=== PATIENT | female | born 1950 | race African-American/Black ===

== ENCOUNTER 2022-04-24 14:58 | Inpatient (IN) | payer MEDICARE, MEDICAID, SELFPAY ==
[2022-04-24] VITALS (31 sets, daily range): BP systolic 134–190; BP diastolic 54–91; PULSE 71–93; RESP 12–25; TEMP 36.6; O2SAT 96–100
--- NOTE | ~2022-04-24 | US_ITS ---
EXAMINATION: US renal BI DATE: 04/26/2022 15:36 INDICATION: Elevated creatinine TECHNIQUE: Multiple grayscale and Doppler ultrasound images of the kidneys were obtained. COMPARISON: None. FINDINGS: The right kidney measures 12.2 x 4.8 x 5.7 cm. The left kidney measures 11.4 x 5.8 x 5.8 cm. The kidn eys demonstrate increased parenchymal echogenicity. Multiple simple right renal cysts, largest contai ns thin septae and measuring up to 3.1 cm. There is no hydronephrosis. The bladder is partially decom pressed, with apparent wall thickening. IMPRESSION: Medical renal disease. No hydronephrosis. Bladder wall thickening may be secondary to incomplete dist ention or cystitis in the appropriate clinical context. Reviewed, dictated and finalized at location K. SORTER IMPRESSION: Medical renal disease. No hydronephrosis. Bladder wall thickening may be second peter to incomplete distention or cystitis in the appropriate clinical context.
--- NOTE | ~2022-04-24 | XR_ITS ---
Portable chest x-ray Comparison: 04/27/2022 Clinical History: Bilateral infiltrates Findings: Hazy airspace disease predominantly in the right upper lobe and left lower lobe is again p resent. Cardiomediastinal silhouette is stable. Bones and soft tissues are unremarkable. Impression: Bilateral hazy airspace disease, as detailed above, similar to prior exam. Correlate for pulmonary ed lukas or bilateral pneumonia. Reviewed, dictated and finalized at location M. ES INSPECTOR Impression: Bilateral hazy airspace disease, as detailed above, similar to prior exam. Staci elate for pulmonary edema or bilateral pneumonia.
--- NOTE | ~2022-04-24 | US_ITS ---
EXAMINATION: US venous doppler UE DATE: 04/30/2022 15:51 INDICATION: Upper limb swelling TECHNIQUE: Grayscale images without and with compression and Doppler images of the bilateral upper ex tremity veins were obtained. COMPARISON: None. FINDINGS: The right internal jugular vein, subclavian vein, axillary vein, brachial vein, basilic vein, cephali c vein, radial vein, and ulnar vein are patent. The left internal jugular vein, subclavian vein, axillary vein, brachial vein, basilic vein, cephalic vein, radial vein, and ulnar vein are patent. IMPRESSION: 1. Patent bilateral upper extremity veins. No evidence of venous thrombosis. Reviewed, dictated and finalized at location A. FIGHTERS DISPATCHER
--- NOTE | ~2022-04-24 | CT_ITS ---
EXAMINATION: CT abdomen pelvis wo con DATE: 04/27/2022 12:28 INDICATION: Anemia status post peg tube insertion TECHNIQUE: Computed tomography (CT) of the abdomen and pelvis was performed without intravenous contr ast. The dose-length product (DLP) was 1187.61 mGy-cm. Automated exposure control and iterative recon struction technique were employed. COMPARISON: None FINDINGS: Cardiomegaly is noted. There are patchy airspace opacities of the visualized lung bases. Th ere are small pleural effusions. The gallbladder is surgically absent. A percutaneous gastrostomy end s in the stomach. No evidence of surrounding hematoma is identified. The liver, spleen, pancreas, and adrenal glands are normal. Cysts of the kidneys measure up to 3.2 cm on the right. The bladder is de compressed by Mittal catheter. Areas of wall thickening of the urinary bladder could be due to cystiti s versus incomplete distention. No pathologically enlarged abdominal or pelvic lymph nodes are identi fied. There is no free intraperitoneal gas or evidence of bowel obstruction. There is moderate lumbar spondylosis at L5-S1. IMPRESSION: 1. PEG tube in the stomach without CT correlate for anemia. 2. Patchy airspace opacities of the visualized lung bases, consistent with pneumonia. 3. Areas of wall thickening in the urinary bladder, consistent with cystitis versus incomplete disten tion. Reviewed, dictated and finalized at location L. DROMAT MANAGER IMPRESSION: 1. PEG tube in the stomach without CT correlate for anemia. 2. Patchy airspace opacities of the visualized lung bases, consistent with pneu monia. 3. Areas of wall thickening in the urinary bladder, consistent with cystitis ve rsus incomplete distention.
--- NOTE | ~2022-04-24 | XR_ITS ---
EXAM: XR abdomen/kub 1V DATE: 04/25/2022 17:19 HISTORY: emisis . COMPARISON: None available. FINDINGS: Upper and left lateral abdomen incompletely visualized. Cholecystectomy clips. Left mid ab dominal surgical clips. Positive small bowel gas, otherwise normal bowel gas pattern. No organomegaly . Multiple pelvic phleboliths and mild scattered vascular calcifications. Degenerative changes in the spine. Bilateral hip osteoarthritis. IMPRESSION: No radiographic evidence of obstruction or ileus, given limitations noted above. Reviewed, dictated and finalized at location K. LING INSTRUCTOR
--- NOTE | ~2022-04-24 | CT_ITS ---
CT head without contrast Indication: Somnolence Technique: Serial scans were obtained through the brain without the administration of contrast. Dose reduction technique was used on this scan by utilizing automated exposure control and iterative recon struction technique. The dose-length product (DLP) was 832.33 mGy-cm. Findings: There is no evidence of intracranial hemorrhage, mass lesion, or acute infarct. Probable ch ronic right frontal lobe infarct. The ventricles and subarachnoid spaces are dilated, consistent with moderate atrophy. Low attenuation regions are seen within the periventricular white matter bilatera lly, likely representing changes from chronic microvascular ischemic disease. There is no evidence of edema, mass effect or midline shift. The visualized paranasal sinuses and mastoid air cells are cl ear. Impression: No intracranial hemorrhage, mass, or acute infarct. Probable chronic right frontal lobe infarct. Atrophy and chronic white matter changes, as above. Reviewed, dictated and finalized at [facility]. NT OR CONCRETE FINISHING SUPERVISOR Impression: No intracranial hemorrhage, mass, or acute infarct. Probable chronic right frontal lobe infarct. Atrophy and chronic white matter changes, as above.
--- NOTE | ~2022-04-24 | XR_ITS ---
EXAMINATION: XR chest 1V portable INDICATION: Respiratory distress TECHNIQUE: Portable AP chest at 1526 hours COMPARISON: None available FINDINGS: There is elevation of the right hemidiaphragm. There are diffuse interstitial and airspace opacities throughout the lungs. Cardiomegaly is noted. No pleural effusion or pneumothorax. Surgical clips in the right upper quadrant are likely from prior cholecystectomy. IMPRESSION: 1. Diffuse lung disease, consistent with pneumonia versus atelectasis versus pulmonary edema. Reviewed, dictated and finalized at location L. POLLUTION ENGINEER IMPRESSION: 1. Diffuse lung disease, consistent with pneumonia versus atelectasis versus pu lmonary edema.
--- NOTE | 2022-04-24 16:14 | ED.GENADULT ---
HPI - General Adult General Chief complaint: Unspecified Stated complaint: g tube out Time Seen by Provider: 04/24/22 15:54 History of Present Illness HPI narrative: Pt is a 72 yo F with hx of hypertension, CVA, COPD on 2L baseline, diabetes, dementia, afib on eliquis, g-tube dependence presenting with dislodged g-tube. Pt is coming from a nursing facility where she was noted to have a dislodged g tube. Unclear when it became dislodged. May have been last night. Pt is A&O x0 at baseline. She is nonverbal at baseline. Per the facility, she is behaving at her baseline. Related Data Home Medications Medication Instructions Recorded Confirmed apixaban 5 mg tablet (Eliquis) 5 mg feeding tube BID 04/25/22 04/25/22 ascorbate calcium (vitamin C) 500 mg feeding tube BID 04/25/22 04/25/22 benztropine 1 mg tablet 1 mg feeding tube BID 04/25/22 04/25/22 carbidopa 10 mg-levodopa 100 mg 1 tablet feeding tube Q6H 04/25/22 04/25/22 tablet carvedilol 6.25 mg tablet 6.25 mg feeding tube BID 04/25/22 04/25/22 clonidine HCl 0.3 mg tablet 0.3 mg feeding tube TID 04/25/22 04/25/22 docusate sodium 50 mg/5 mL oral 100 mg feeding tube BID 04/25/22 04/25/22 liquid ferrous sulfate 7.5 mg feeding tube DAILY 04/25/22 04/25/22 hydralazine 100 mg tablet 100 mg feeding tube Q8H 04/25/22 04/25/22 insulin NPH isoph U-100 human 100 See Rx Instructions .Route .COMPLEX 04/25/22 04/25/22 unit/mL (3 mL) subcutaneous pen (Novolin N Flexpen) insulin detemir U-100 100 unit/mL 22 unit subcut Q12H 04/25/22 04/25/22 (3 mL) subcutaneous pen (Levemir FlexTouch U-100 Insulin) insulin regular human 100 unit/mL 8 unit subcut TID 04/25/22 04/25/22 injection solution (Humulin R Regular U-100 Insulin) ipratropium 0.5 mg-albuterol 3 mg 3 ml inhalation Q4H PRN Shortness 04/25/22 04/25/22 (2.5 mg base)/3 mL nebulization Of Breath soln Allergies Allergy/AdvReac Type Severity Reaction Status Date / Time amlodipine Allergy Unknown Verified 04/24/22 15:39 fosinopril [From Monopril] Allergy Unknown Verified 04/24/22 15:39 Review of Systems Review of Systems: ROS unobtainable: Yes unobtainable due to mental status and other (nonverbal at baseline) [facility] Past Medical History Medical History (Updated 04/28/22 @ 12:44 by Miroslava Paz MD) Acute on chronic anemia Cerebrovascular accident Chronic obstructive pulmonary disease Chronic respiratory failure with hypoxia, on home oxygen therapy Dementia Hypertension Paroxysmal atrial fibrillation Type 2 diabetes mellitus Surgical History Surgical History History of gastrostomy tube placement Family History Family History Other Family history unknown Social History Social History Social History: Next of kin: Vikram Latham, son. Legal guardian: Raj Bustos. Code status: Full code. Smoking status: Unknown if ever smoked Alcohol intake: unknown Substance use: unknown Additional living arrangements comments: Resident at [facility]. Spiritual care concerns: No Exam Narrative: GENERAL: Chronically ill appearing, on nasal cannula HEAD: Normocephalic, atraumatic. EYES: PERRLA and EOMI. ENT: Nares clear, no rhinorrhea or epistaxis. Mucous membranes moist. NECK: Supple. CHEST: Clear to auscultation. No respiratory distress. HEART: Regular rate and rhythm. No murmur heard. Normal peripheral pulses. ABDOMEN: Soft, nontender, nondistended, gastrostomy site LUQ, appears closed at this time EXTREMITIES: Normal range of motion. No edema. SKIN: Warm, dry, no rash. NEURO: Nonverbal at baseline. Moves all extremities. Course Vital Signs Vital signs: Vital Signs Temperature 98 F 04/24/22 15:00 Pulse Rate 72 04/24/22 15:00 Respiratory Rate 16 04/24/22 15:00 Blood Pressure 134/54 L 04/24/22 15
--- NOTE | 2022-04-24 16:53 | PC.NURSE ---
spoke to facility to find out info related to g-tube. was unable to gather data, they were unsure where it was placed or by whom facility unable to state when tube was removed.
--- NOTE | 2022-04-24 16:54 | PC.NURSE ---
unable to acquire labs per order provider aware
[2022-04-24 17:07] LABS: Basophils Percent Auto 0.4 % (0.2-1.2); Eosinophils Absolute Auto 0.3 K/mm3 (0-0.3); Eosinophils Percent Auto 2.6 % (0-4.4); Hematocrit 26.8 % (37.0-47.0); Hemoglobin 8.1 g/dL (12.0-15.0); Immature Granulocyte Absolute 0.09 K/mm3 (0.00-0.031); Immature Granulocyte Percent A 0.9 % (0-0.5); Lymphocytes Absolute Auto 1.51 K/mm3 (0.9-3.2); Lymphocytes Percent Auto 14.7 % (18.3-44.2); Mean Corpuscular HGB Conc 30.2 g/dl (32-36); Mean Corpuscular Hemoglobin 30.8 pg (26-34); Mean Corpuscular Volume 101.9 fl (80-100); Mean Platelet Volume 12.3 fl (7.4-10.4); Monocytes Absolute Auto 0.5 K/mm3 (0.1-0.6); Monocytes Percent Auto 5.1 % (2.6-8.5); Neutrophils Absolute Auto 7.8 K/mm3 (1.3-6.7); Neutrophils Percent Auto 76.3 % (45.5-73.1); Platelet Count Result 218 k/mm3 (150-375); Red Blood Count 2.63 M/mm3 (4.2-5.4); Red Cell Distribution Width 15.3 % (11.5-14.5); White Blood Count 10.3 K/mm3 (4.5-10.0)
[2022-04-24 17:17] LABS: Alanine Aminotransferase 11 U/L (6-35); Albumin Level 4.3 g/dL (3.5-5.1); Alkaline Phosphatase 140 U/L (38-126); Anion Gap 11 mmol/L (8-16); Aspartate Amino Transferase 34 U/L (14-36); Bilirubin,Total 0.6 mg/dL (0.2-1.3); Blood Urea Nitrogen 96 mg/dL (7-17); Calcium 12.3 mg/dL (8.4-10.2); Carbon Dioxide 33 mmol/L (22-30); Chloride 98 mmol/L (98-107); Estimated CRCL calculation 19 ml/min; Estimated Glomerular Filt Rate 17; Glucose 84 mg/dL (65-110); Potassium 4.4 mmol/L (3.4-5.0); Sodium 142 mmol/L (137-145)
[2022-04-24 17:43] LABS: Influenza A QL RT-PCR Negative (Negative); Influenza B QL RT-PCR Negative (Negative); SARS-CoV-2 RNA PCR Negative
[2022-04-24 17:46] LABS: Add Urine Microscopic? YES; Appearance Urine Clear (Clear); Bilirubin Urine Negative (Negative); Blood Urine Negative (Negative); Color Urine Light Yellow (Yellow); Glucose Urine UA Negative (Negative); Ketones Urine Negative (Negative); Leukocyte Esterase Ur 3+ LEU/UL (Negative); Nitrate Urine Negative (Negative); Protein Urine 1+ mg/dL (Negative); Specific Grav Ur 1.015 (1.001-1.035); Urobilinogen Urine 0.2 mg/dL (<2.0); pH Urine 6.5 (5.0-9.0)
[2022-04-24 17:49] LABS: Bacteria Urine Trace /hpf; Squamous Epithelial Cell Urine Rare /hpf (Few); WBC Urine 31-50 /hpf
--- NOTE | 2022-04-24 18:45 | PM.IMHP ---
H&P: HPI History of Present Illness Date/Time: 04/24/22 18:45 Chief Complaint: Dislodged G-tube. Narrative: This is an unfortunate 72-year-old female with history of stroke, dementia, hypertension, paroxysmal atrial fibrillation on chronic anticoagulation, COPD on 2 liters, and diabetes who presented to the emergency department from [facility] after her G-tube became dislodged. The patient is nonverbal and is unable to provide any history and all of the following history has thus been obtained via a review of her electronic medical records. Family members have not been in touch as of yet. It is unclear when the tube was dislodged and it sounds like staff noticed that it was not in place this morning. She was sent to the ER this afternoon. Unfortunately nothing was placed in the opening to keep it patent and g-tube was unable to be reinserted in the ED. She is being admitted in this setting for GI consultation and G-tube placement. At the time my evaluation she is alert and appears to track with her eyes though she does not speak and is unable to follow commands. Vital signs were stable on arrival. Labs were significant for macrocytic anemia, BUN and creatinine of 96 and 2.80 respectively, and a calcium of 12.3. She has not been seen at this facility thus it is unclear what her baseline labs look like. Review of Systems Review of Systems: Unable to obtain as she is nonverbal. [facility] Past Medical History Medical History (Updated 04/24/22 @ 21:15 by Araceli Schneider PA-C) Cerebrovascular accident Chronic obstructive pulmonary disease Chronic respiratory failure with hypoxia, on home oxygen therapy Dementia Hypertension Paroxysmal atrial fibrillation Type 2 diabetes mellitus Surgical History Surgical History (Updated 04/24/22 @ 21:06 by Araceli Schneider PA-C) History of gastrostomy tube placement Family History Family History (Updated 04/24/22 @ 21:06 by Araceli Schneider PA-C) Other Family history unknown Social History Social History (Updated 04/24/22 @ 21:08 by Araceli Schneider PA-C) Social History: Next of kin: Vikram Latham, son. Legal guardian: Raj Bustos. Code status: Full code. Smoking status: Unknown if ever smoked Alcohol intake: unknown Substance use: unknown Additional living arrangements comments: Resident at [facility]. Meds Home Medications and Allergies Allergies Allergy/AdvReac Type Severity Reaction Status Date / Time amlodipine Allergy Unknown Verified 04/24/22 15:39 fosinopril [From Monopril] Allergy Unknown Verified 04/24/22 15:39 Vital Signs Vital Signs - 24 hr 04/24/22 15:00 04/24/22 15:52 04/24/22 16:44 Temperature 98 F Pulse Rate 72 71 76 Respiratory Rate 16 12 18 Blood Pressure 134/54 L Pulse Oximetry 98 100 Oxygen Delivery Nasal Cannula Oxygen Flow Rate 2 04/24/22 16:45 04/24/22 17:00 04/24/22 17:15 Temperature Pulse Rate 76 77 77 Respiratory Rate 18 18 25 H Blood Pressure 142/84 H Pulse Oximetry 100 Oxygen Delivery Oxygen Flow Rate Exam Narrative: General: Chronically ill-appearing female sitting up in bed. Weight: 95.7 kilograms. BMI: 34.1. HEENT: Normocephalic, atraumatic. Left pupil is sluggishly reactive. Extraocular motions appear to be intact. Sclerae anicteric. Lips are chapped. Oral exam not performed as she would not open her mouth. Neck: Supple. Respiratory: Respirations are nonlabored. Lung sounds are diminished due to poor effort. Cardiovascular: Regular rate and rhythm with S1-S2. Soft murmur at the upper sternal border. Gastrointestinal: Abdomen is soft, obese, and nontender with positive bowel sounds. Faint bruising in scattered areas across the mid to lower abdomen, presumably from insulin injections. No guarding or rebound tenderness. Old G-tube site is dressed. Skin: Warm and dry. Wearing waffle boots bilaterally, not removed for exam. Extremities:
[2022-04-24] MEDS: LACTATED RINGERS 1,000 ML 100 ML IV CONT (22:04)
[2022-04-25] VITALS (10 sets, daily range): BP systolic 152–207; BP diastolic 54–90; PULSE 70–110; RESP 14–24; TEMP 36.2–36.9; O2SAT 100; BMI 33.1
--- NOTE | 2022-04-25 00:08 | ADMGEN ---
This patient, Aman Latham, was admitted to Medical Room 252-01. Patient/family oriented to hospital policies and general routines including ID bracelet, bed and alarms, visiting hours, pain management, procedures, bathroom and other care routines, personal items, smoking policy, room service/diet, and visiting hours. Information on how to activate the Rapid Response Team has been discussed. Patient/Family are encouraged to report perceived risks to care and to ask questions if they do not understand what they are told or what they should do.
[2022-04-25 00:54] LABS: Glucose Point of Care 123 mg/dl (65-105)
[2022-04-25] MEDS: hydrALAZINE HCL 20 MG/ML VIAL 10 MG IV PUSH ×4 (03:12→22:52)
[2022-04-25] MEDS: ALBUTEROL SULFATE NEB 2.5 MG/3 ML INH INHALATION (03:20)
[2022-04-25 05:11] LABS: Hematocrit 24.2 % (37.0-47.0); Hemoglobin 7.5 g/dL (12.0-15.0); Immature Reticulocyte Fraction 25.1 % (3.0-15.9); Mean Corpuscular Hemoglobin 30.7 pg (26-34); Mean Corpuscular Volume 99.2 fl (80-100); Mean Platelet Volume 11.7 fl (7.4-10.4); Platelet Count Result 219 k/mm3 (150-375); Red Blood Count 2.44 M/mm3 (4.2-5.4); Red Cell Distribution Width 15.2 % (11.5-14.5); Reticulocyte Hemoglobin Conten 30.4 pg (28.2-35.7); Reticulocyte Percent 3.06 % (0.7-4.3); Reticulocytes Absolute 0.07 B/L (32.2-175.7); White Blood Count 11.8 K/mm3 (4.5-10.0)
[2022-04-25 05:23] LABS: Iron 31 ug/dL (37-170)
[2022-04-25 05:29] LABS: Hemoglobin A1C 5.2 % (<5.7)
[2022-04-25 05:32] LABS: Percent Iron Saturation 8 % (20-50)
[2022-04-25 05:52] LABS: Alanine Aminotransferase 16 U/L (6-35); Albumin Level 4.1 g/dL (3.5-5.1); Alkaline Phosphatase 142 U/L (38-126); Anion Gap 8 mmol/L (8-16); Aspartate Amino Transferase 35 U/L (14-36); Bilirubin,Total 0.5 mg/dL (0.2-1.3); Blood Urea Nitrogen 86 mg/dL (7-17); Calcium 11.9 mg/dL (8.4-10.2); Carbon Dioxide 36 mmol/L (22-30); Chloride 99 mmol/L (98-107); Estimated CRCL calculation 15 ml/min; Estimated Glomerular Filt Rate 20; Glucose 115 mg/dL (65-110); Magnesium 3.2 mg/dL (1.6-2.3); Potassium 3.9 mmol/L (3.4-5.0); Sodium 143 mmol/L (137-145)
[2022-04-25 06:21] LABS: Glucose Point of Care 122 mg/dl (65-105)
[2022-04-25 06:28] LABS: Partial Thromboplastin Time 30.1 SECONDS (22.3-36.8)
[2022-04-25 06:29] LABS: INR 1.3; Prothrombin Time 15.2 Seconds (11.1-14.7)
[2022-04-25 06:42] LABS: Folic Acid > 20.0 ng/mL (2.76->20); Vitamin B12 > 1000.0 pg/mL (239-931)
[2022-04-25 08:34] LABS: Glucose Point of Care 142 mg/dl (65-105)
[2022-04-25] MEDS: LACTATED RINGERS 1,000 ML 100 ML IV CONT ×2 (10:31→21:49)
[2022-04-25 11:54] LABS: Glucose Point of Care 147 mg/dl (65-105)
[2022-04-25] MEDS: EUCERIN CREAM 120 GM JAR 1 APPLIC TOPICAL (12:52)
[2022-04-25] MEDS: FLUTICASONE PROPIONATE 0.05% NA SPR 16 GM BTL (*BKC) 1 SPRAY NASAL ×2 (12:52→20:34)
[2022-04-25 13:03] LABS: Glucose Point of Care 144 mg/dl (65-105)
--- NOTE | 2022-04-25 13:17 | WPDGICN ---
Assessment and Plan Assessment and plan (1) Dislodged gastrostomy tube: Code(s): T85.528A - Displacement of other gastrointestinal prosthetic devices, implants and grafts, initial encounter Status: Acute Assessment and Plan: will place a new one tomorrow with egd (2) Renal failure: Code(s): N19 - Unspecified kidney failure Status: Acute Assessment and Plan: started on iv fluids, unknown baseline monitor (3) Macrocytic anemia: Code(s): D53.9 - Nutritional anemia, unspecified Status: Acute Assessment and Plan: low h/h, no signs of bleeding b12 and iron panel (4) Dementia: Code(s): F03.90 - Unspecified dementia, unspecified severity, without behavioral disturbance, psychotic disturbance, mood disturbance, and anxiety Status: Acute Assessment and Plan: with aphasia and requiring total care (5) Dehydration: Code(s): E86.0 - Dehydration Status: Acute (6) Type 2 diabetes mellitus: Code(s): E11.9 - Type 2 diabetes mellitus without complications Status: Acute Assessment and Plan: on medication (7) Chronic respiratory failure with hypoxia, on home oxygen therapy: Code(s): J96.11 - Chronic respiratory failure with hypoxia; Z99.81 - Dependence on supplemental oxygen Status: Acute GI Consult Note Consult date/time: 04/25/22 13:17 Reason for consult: g-tube dislodged, elmo, dehydration HPI: Aman Latham is a 72 year old female ?with history of stroke, dementia, hypertension, paroxysmal atrial fibrillation on chronic anticoagulation, DM, COPD on 2 liters, and diabetes who was brought to the emergency department from [facility] after her G-tube became dislodged. I could not get any history from her since she is nonverbal. It is unclear when the tube was dislodged, on arrival to ER the physician was unable to place anything because ostomy site was almost closed. Labs were significant for macrocytic anemia with hb 7.5, BUN and creatinine of 96 and 2.80? Review of Systems Review of Systems: ROS unobtainable: Yes unobtainable due to mental status PMFSH Past Medical History Medical History (Updated 04/24/22 @ 21:15 by Araceli Schneider PA-C) Cerebrovascular accident Chronic obstructive pulmonary disease Chronic respiratory failure with hypoxia, on home oxygen therapy Dementia Hypertension Paroxysmal atrial fibrillation Type 2 diabetes mellitus Surgical History Surgical History (Updated 04/24/22 @ 21:06 by Araceli Schneider PA-C) History of gastrostomy tube placement Family History Family History Other Family history unknown Social History Social History (Updated 04/24/22 @ 21:08 by Araceli Schneider PA-C) Social History: Next of kin: Vikram Latham, son. Legal guardian: Raj Bustos. Code status: Full code. Smoking status: Unknown if ever smoked Alcohol intake: unknown Substance use: unknown Additional living arrangements comments: Resident at [facility]. Spiritual care concerns: No Meds Home Medications and Allergies Home Medications Medication Instructions Recorded Confirmed Type apixaban 5 mg tablet (Eliquis) 5 mg feeding tube BID 04/25/22 04/25/22 History ascorbate calcium (vitamin C) 500 mg feeding tube BID 04/25/22 04/25/22 History benztropine 1 mg tablet 1 mg feeding tube BID 04/25/22 04/25/22 History carbidopa 10 mg-levodopa 100 mg 1 tablet feeding tube Q6H 04/25/22 04/25/22 History tablet carvedilol 6.25 mg tablet 6.25 mg feeding tube BID 04/25/22 04/25/22 History clonidine HCl 0.3 mg tablet 0.3 mg feeding tube TID 04/25/22 04/25/22 History docusate sodium 50 mg/5 mL oral 100 mg feeding tube BID 04/25/22 04/25/22 History liquid ferrous sulfate 7.5 mg feeding tube DAILY 04/25/22 04/25/22 History hydralazine 100 mg tablet 100 mg feeding tube Q8H 04/25/22 04/25/22 H
--- NOTE | 2022-04-25 13:25 | P.PNIM_ITS ---
Progress Note: A&P Assessment and Plan (1) Dislodged gastrostomy tube: Code(s): T85.528A - Displacement of other gastrointestinal prosthetic devices, implants and grafts, initial encounter Status: Acute Assessment and Plan: Patient sent to the ER due to G tube dislodgement. Unsure the mechanism. * Will need to get in touch with her legal guardian for consent. * Dr. Rodriguez consulted for G-tube placement. Appreciate consult * Plan to replace with G-tube tomorrow with EGD * Patient does not appear to be in any pain. * Patient's medications put on hold due to lack of delivery system (2) Renal failure: Code(s): N19 - Unspecified kidney failure Status: Acute Assessment and Plan: Unknown history of kidney disease * She has not been seen at this facility before but she likely has underlying chronic kidney disease. * Records requested for review. * She will be judiciously hydrated overnight as she appears dry on labs and exam. * Patient started on lactated Ringer's * BUN improved from day of admission, creatinine the same (3) Macrocytic anemia: Code(s): D53.9 - Nutritional anemia, unspecified Status: Acute Assessment and Plan: * Check iron studies as well as B12 and folates. * Iron studies revealed low iron and % saturation, high ferritin, normal TIBC. * B12 and folate normal * Recommend iron supplement once G-tube is placed. (4) Abnormal urinalysis: Code(s): R82.90 - Unspecified abnormal findings in urine Status: Acute Assessment and Plan: UA abnormal: 3+ leukocyte esterase, 3-5 RBCs, WBCs 30 1-50, rare squamous epithelial * Patient unable to voice any concerns. * She has been started on ceftriaxone * Urine culture pending (5) Dehydration: Code(s): E86.0 - Dehydration Status: Acute Assessment and Plan: * She is being hydrated overnight as detailed above. (6) Hypercalcemia: Code(s): E83.52 - Hypercalcemia Status: Acute Assessment and Plan: * In part due to dehydration. * If no marked improvement with IV fluids a further workup can be pursued. (7) Type 2 diabetes mellitus: Code(s): E11.9 - Type 2 diabetes mellitus without complications Status: Acute Assessment and Plan: * Initiate sliding scale insulin, Accu-Cheks, and hypoglycemic protocol. Check A1c. (8) Chronic obstructive pulmonary disease: Code(s): J44.9 - Chronic obstructive pulmonary disease, unspecified Status: Acute Assessment and Plan: * No acute issues. (9) Paroxysmal atrial fibrillation: Code(s): I48.0 - Paroxysmal atrial fibrillation Status: Acute Assessment and Plan: * Sounds to be in a normal sinus rhythm at this time. (10) Hypertension: Code(s): I10 - Essential (primary) hypertension Status: Acute Assessment and Plan: * Blood pressures were reviewed and they are stable. * Monitor closely as she is currently NPO. (11) Dry skin: Code(s): L85.3 - Xerosis cutis Status: Acute Assessment and Plan: * Eucerin prescribed for whole-body hydration * Flonase for nasal congestion p.r.n. * Saline spray for dry nares p.r.n. Time Spent With Patient Time with patient: 15 - 25 minutes Subjective Date/time seen: 04/25/22 13:25 Interval history: 72-year-old female with history of stroke, dementia, hypertension, paroxysmal atrial fibrillation on chronic antico
--- NOTE | 2022-04-25 13:25 | PM.IMPN ---
Progress Note: A&P Assessment and Plan (1) Dislodged gastrostomy tube: Code(s): T85.528A - Displacement of other gastrointestinal prosthetic devices, implants and grafts, initial encounter Status: Acute Assessment and Plan: Patient sent to the ER due to G tube dislodgement. Unsure the mechanism. Will need to get in touch with her legal guardian for consent. Dr. Rodriguez consulted for G-tube placement. Appreciate consult Plan to replace with G-tube tomorrow with EGD Patient does not appear to be in any pain. Patient's medications put on hold due to lack of delivery system (2) Renal failure: Code(s): N19 - Unspecified kidney failure Status: Acute Assessment and Plan: Unknown history of kidney disease She has not been seen at this facility before but she likely has underlying chronic kidney disease. Records requested for review. She will be judiciously hydrated overnight as she appears dry on labs and exam. Patient started on lactated Ringer's BUN improved from day of admission, creatinine the same (3) Macrocytic anemia: Code(s): D53.9 - Nutritional anemia, unspecified Status: Acute Assessment and Plan: Check iron studies as well as B12 and folates. Iron studies revealed low iron and % saturation, high ferritin, normal TIBC. B12 and folate normal Recommend iron supplement once G-tube is placed. (4) Abnormal urinalysis: Code(s): R82.90 - Unspecified abnormal findings in urine Status: Acute Assessment and Plan: UA abnormal: 3+ leukocyte esterase, 3-5 RBCs, WBCs 30 1-50, rare squamous epithelial Patient unable to voice any concerns. She has been started on ceftriaxone Urine culture pending (5) Dehydration: Code(s): E86.0 - Dehydration Status: Acute Assessment and Plan: She is being hydrated overnight as detailed above. (6) Hypercalcemia: Code(s): E83.52 - Hypercalcemia Status: Acute Assessment and Plan: In part due to dehydration. If no marked improvement with IV fluids a further workup can be pursued. (7) Type 2 diabetes mellitus: Code(s): E11.9 - Type 2 diabetes mellitus without complications Status: Acute Assessment and Plan: Initiate sliding scale insulin, Accu-Cheks, and hypoglycemic protocol. Check A1c. (8) Chronic obstructive pulmonary disease: Code(s): J44.9 - Chronic obstructive pulmonary disease, unspecified Status: Acute Assessment and Plan: No acute issues. (9) Paroxysmal atrial fibrillation: Code(s): I48.0 - Paroxysmal atrial fibrillation Status: Acute Assessment and Plan: Sounds to be in a normal sinus rhythm at this time. (10) Hypertension: Code(s): I10 - Essential (primary) hypertension Status: Acute Assessment and Plan: Blood pressures were reviewed and they are stable. Monitor closely as she is currently NPO. (11) Dry skin: Code(s): L85.3 - Xerosis cutis Status: Acute Assessment and Plan: Eucerin prescribed for whole-body hydration Flonase for nasal congestion p.r.n. Saline spray for dry nares p.r.n. Time Spent With Patient Time with patient: 15 - 25 minutes Subjective Date/time seen: 04/25/22 13:25 Interval history: 72-year-old female with history of stroke, dementia, hypertension, paroxysmal atrial fibrillation on chronic anticoagulation, COPD on 2 liters, and diabetes who presented to the emergency department from [facility] [place] after her G-tube became dislodged.? GI consulted on the patient. Able to the obtain review of systems due to patient being nonverbal. Review of Systems Review of Systems: ROS unobtainable: Yes unobtainable due to medical condition Exam Narrative: GENERAL: Comfortable, no acute distress HENMT: Dry skin surrounding the nares with mucus plugging around patient's nasal c
[2022-04-25 17:13] LABS: Glucose Point of Care 176 mg/dl (65-105)
[2022-04-25] MEDS: PANTOPRAZOLE SODIUM IV 40 MG VIAL IV PUSH (17:52)
[2022-04-25] MEDS: ONDANSETRON INJ 4 MG/2 ML VIAL IV PUSH (17:52)
[2022-04-25 23:14] LABS: Glucose Point of Care 213 mg/dl (65-105)
[2022-04-25] MEDS: METOPROLOL TARTRATE INJ 5 MG/5 ML VIAL IV PUSH (23:32)
[2022-04-26] VITALS (82 sets, daily range): BP systolic 97–252; BP diastolic 47–124; PULSE 72–108; RESP 9–28; TEMP 35.5–36.8; O2SAT 95–100; BMI 33.3
[2022-04-26] MEDS: hydrALAZINE HCL 20 MG/ML VIAL 10 MG IV PUSH (01:15)
[2022-04-26] MEDS: METOPROLOL TARTRATE INJ 5 MG/5 ML VIAL 10 MG IV PUSH ×2 (02:52→03:43)
[2022-04-26] MEDS: cloNIDine 0.3 MG/24 HR PATCH 1 PATCH TRANSDERM (02:57)
[2022-04-26 06:05] LABS: Alanine Aminotransferase 39 U/L (6-35); Alkaline Phosphatase 151 U/L (38-126); Anion Gap 8 mmol/L (8-16); Aspartate Amino Transferase 59 U/L (14-36); Bilirubin,Total 0.5 mg/dL (0.2-1.3); Blood Urea Nitrogen 74 mg/dL (7-17); Calcium 11.3 mg/dL (8.4-10.2); Carbon Dioxide 35 mmol/L (22-30); Chloride 104 mmol/L (98-107); Estimated CRCL calculation 18 ml/min; Estimated Glomerular Filt Rate 25; Glucose 224 mg/dL (65-110); Potassium 3.8 mmol/L (3.4-5.0); Sodium 147 mmol/L (137-145)
[2022-04-26] MEDS: METOPROLOL TARTRATE INJ 5 MG/5 ML VIAL IV PUSH ×2 (06:06→12:16)
[2022-04-26 06:24] LABS: Glucose Point of Care 197 mg/dl (65-105)
--- NOTE | 2022-04-26 06:26 | PC.NURSE ---
Pt's BP has been elevated throughout the night. Per Hospitalist order BP was taken on all 4 extremities.
[2022-04-26] MEDS: LACTATED RINGERS 1,000 ML 150 ML IV CONT ×2 (06:50→06:59)
[2022-04-26 06:51] LABS: Basophils Percent Auto 0.2 % (0.2-1.2); Hematocrit 25.5 % (37.0-47.0); Hemoglobin 7.7 g/dL (12.0-15.0); Immature Granulocyte Percent A 0.6 % (0-0.5); Lymphocytes Absolute Auto 0.96 K/mm3 (0.9-3.2); Lymphocytes Percent Auto 5.4 % (18.3-44.2); Mean Corpuscular HGB Conc 30.2 g/dl (32-36); Mean Corpuscular Hemoglobin 31.2 pg (26-34); Mean Corpuscular Volume 103.2 fl (80-100); Mean Platelet Volume 11.8 fl (7.4-10.4); Monocytes Absolute Auto 0.7 K/mm3 (0.1-0.6); Neutrophils Absolute Auto 16.1 K/mm3 (1.3-6.7); Neutrophils Percent Auto 89.8 % (45.5-73.1); Platelet Count Result 248 k/mm3 (150-375); Red Blood Count 2.47 M/mm3 (4.2-5.4); Red Cell Distribution Width 15.4 % (11.5-14.5); White Blood Count 17.9 K/mm3 (4.5-10.0)
--- NOTE | 2022-04-26 06:57 | WPDANESEPPF ---
Anes - Initial Pre Proc Eval Procedure: Operation Date: 04/26/22 07:00 Proposed Procedures p Percutaneous Endoscopic Gastrostomy(Not Applicable) - Lucio Rodriguez MD Date/Time: 04/26/22 06:57 Surgeon: Vikram Kimbrough MD Pre Op Diagnosis: Dislodged G Tube Patient Data Age: 72 Gender: F Height: 1.52 m Weight: 77.4 kg Last Vital Signs Temp 36.7 C 04/26/22 06:00 Pulse 100 04/26/22 06:06 Resp 20 04/26/22 06:00 BP 161/83 H 04/26/22 06:28 Pulse Ox 100 04/26/22 06:00 O2 Del Method Nasal Cannula 04/26/22 03:00 O2 Flow Rate 4 04/26/22 03:00 Allergies Allergy/AdvReac Type Severity Reaction Status Date / Time amlodipine Allergy Unknown Verified 04/24/22 15:39 fosinopril [From Monopril] Allergy Unknown Verified 04/24/22 15:39 Home Medications Medication Instructions Recorded Confirmed Type apixaban 5 mg tablet (Eliquis) 5 mg feeding tube BID 04/25/22 04/25/22 History ascorbate calcium (vitamin C) 500 mg feeding tube BID 04/25/22 04/25/22 History benztropine 1 mg tablet 1 mg feeding tube BID 04/25/22 04/25/22 History carbidopa 10 mg-levodopa 100 mg 1 tablet feeding tube Q6H 04/25/22 04/25/22 History tablet carvedilol 6.25 mg tablet 6.25 mg feeding tube BID 04/25/22 04/25/22 History clonidine HCl 0.3 mg tablet 0.3 mg feeding tube TID 04/25/22 04/25/22 History docusate sodium 50 mg/5 mL oral 100 mg feeding tube BID 04/25/22 04/25/22 History liquid ferrous sulfate 7.5 mg feeding tube DAILY 04/25/22 04/25/22 History hydralazine 100 mg tablet 100 mg feeding tube Q8H 04/25/22 04/25/22 History insulin NPH isoph U-100 human 100 See Rx Instructions .Route .COMPLEX 04/25/22 04/25/22 History unit/mL (3 mL) subcutaneous pen (Novolin N Flexpen) insulin detemir U-100 100 unit/mL 22 unit subcut Q12H 04/25/22 04/25/22 History (3 mL) subcutaneous pen (Levemir FlexTouch U-100 Insulin) insulin regular human 100 unit/mL 8 unit subcut TID 04/25/22 04/25/22 History injection solution (Humulin R Regular U-100 Insulin) ipratropium 0.5 mg-albuterol 3 mg 3 ml inhalation Q4H PRN Shortness 04/25/22 04/25/22 History (2.5 mg base)/3 mL nebulization Of Breath soln Laboratory Tests 04/25/22 04/25/22 04/25/22 04:54 08:30 11:46 WBC RBC Hgb Hct MCV MCH MCHC RDW Plt Count MPV Immature Gran % (Auto) Neut % (Auto) Lymph % (Auto) [place] % (Auto) Eos % (Auto) Baso % (Auto) Lymph # (Auto) [place] # (Auto) Eos # (Auto) Baso # (Auto) Abs Immat Gran (auto) Absolute Neuts (auto) Absolute Nucleated RBC Nucleated RBC % Sodium Potassium Chloride Carbon Dioxide Anion Gap BUN Creatinine Estim Creat Clear Calc Estimated GFR Glucose POC Capillary Glucose 142 mg/dl H mg/dl 147 mg/dl H mg/dl (65-105) (65-105) Calcium % Saturation 8 % L % (20-50) Total Bilirubin AST ALT Alkaline Phosphatase Total Protein Albumin 04/25/22 04/25/22 04/25/22 13:00 16:54 23:11 WBC RBC Hgb Hct MCV MCH MCHC RDW Plt Count MPV Immature Gran % (Auto) Neut % (Auto) Lymph % (Auto) [place] % (Auto) Eos % (Auto) Baso % (Auto) Lymph # (Auto) [place] # (Auto) Eos # (Auto) Baso # (Auto) Abs Immat Gran (auto) Absolute Neuts (auto)
--- NOTE | 2022-04-26 07:10 | SUR.OPER ---
ancef 1gm given per anesthesia 708 at start of procedure
--- NOTE | 2022-04-26 07:38 | P.PNIM_ITS ---
Progress Note: A&P Assessment and Plan (1) Dislodged gastrostomy tube: Code(s): T85.528A - Displacement of other gastrointestinal prosthetic devices, implants and grafts, initial encounter Status: Acute Assessment and Plan: Patient sent to the ER due to G tube dislodgement. Unsure the mechanism. * Will need to get in touch with her legal guardian for consent. * Dr. Rodriguez consulted for G-tube placement. Appreciate consult. * G-tube placed this morning. * Restart home medications once appropriate * Dietary consult (2) Hypertension: Code(s): I10 - Essential (primary) hypertension Status: Acute Assessment and Plan: 04/26/22 * Patient blood pressures this morning, systolic over 200 * Patient had EGD done this morning with G-tube placement * While in surgery patient was given hydralazine 10 mg at 0812, labetalol 10 mg at 0805, and fentanyl 50 at 0740 * Patient unable to take p.o. hypertension medications until 4 hours post G-tube placement. * Approximately 1130 on 04/26/2022 patient can have home meds * Patient's blood pressures after administration of medication continue to rise with the peak at 252 systolic * patient given 20 mg labetalol * Patient put on telemetry * Patient transferred to the ICU and put on Labetalol drip * Discussed with attending physician and director of land acquisition the care of this patient. Lard Tub Washer agreed to accept the patient into the ICU. (3) Renal failure: Code(s): N19 - Unspecified kidney failure Status: Acute Assessment and Plan: Unknown history of kidney disease * She has not been seen at this facility before but she likely has underlying chronic kidney disease. * Records requested for review. * She will be judiciously hydrated overnight as she appears dry on labs and exam. * Patient started on lactated Ringer's * BUN and creatinine improved from admission (4) Macrocytic anemia: Code(s): D53.9 - Nutritional anemia, unspecified Status: Acute Assessment and Plan: * Check iron studies as well as B12 and folates. * Iron studies revealed low iron and % saturation, high ferritin, normal TIBC. * B12 and folate normal * Recommend iron supplement once G-tube is placed. (5) Abnormal urinalysis: Code(s): R82.90 - Unspecified abnormal findings in urine Status: Acute Assessment and Plan: UA abnormal: 3+ leukocyte esterase, 3-5 RBCs, WBCs 30 1-50, rare squamous epithelial * Patient unable to voice any concerns. * She has been started on ceftriaxone * Urine culture preliminary positive for E coli * Pending sensitivity on urine culture continue ceftriaxone for now (6) Dehydration: Code(s): E86.0 - Dehydration Status: Acute Assessment and Plan: * She is being hydrated overnight as detailed above. (7) Hypercalcemia: Code(s): E83.52 - Hypercalcemia Status: Acute Assessment and Plan: * In part due to dehydration. * If no marked improvement with IV fluids a further workup can be pursued. (8) Type 2 diabetes mellitus: Code(s): E11.9 - Type 2 diabetes mellitus without complications Status: Acute Assessment and Plan: * Initiate sliding scale insulin, Accu-Cheks, and hypoglycemic protocol. Check A1c. (9) Chronic obstructive pulmonary disease: Code(s): J44.9 - Chronic obstructive pulmonary disease, unspecified Status: Acute Assessment and Plan: * No acute issues. (10) Paroxysmal atrial fibrillati
--- NOTE | 2022-04-26 07:38 | PM.IMPN ---
Progress Note: A&P Assessment and Plan (1) Dislodged gastrostomy tube: Code(s): T85.528A - Displacement of other gastrointestinal prosthetic devices, implants and grafts, initial encounter Status: Acute Assessment and Plan: Patient sent to the ER due to G tube dislodgement. Unsure the mechanism. Will need to get in touch with her legal guardian for consent. Dr. Rodriguez consulted for G-tube placement. Appreciate consult. G-tube placed this morning. Restart home medications once appropriate Dietary consult (2) Hypertension: Code(s): I10 - Essential (primary) hypertension Status: Acute Assessment and Plan: 04/26/22 Patient blood pressures this morning, systolic over 200 Patient had EGD done this morning with G-tube placement While in surgery patient was given hydralazine 10 mg at 0812, labetalol 10 mg at 0805, and fentanyl 50 at 0740 Patient unable to take p.o. hypertension medications until 4 hours post G-tube placement. Approximately 1130 on 04/26/2022 patient can have home meds Patient's blood pressures after administration of medication continue to rise with the peak at 252 systolic patient given 20 mg labetalol Patient put on telemetry Patient transferred to the ICU and put on Labetalol drip Discussed with attending physician and [employer] industrial [employer] teacher the care of this patient. Rice Farmer agreed to accept the patient into the ICU. (3) Renal failure: Code(s): N19 - Unspecified kidney failure Status: Acute Assessment and Plan: Unknown history of kidney disease She has not been seen at this facility before but she likely has underlying chronic kidney disease. Records requested for review. She will be judiciously hydrated overnight as she appears dry on labs and exam. Patient started on lactated Ringer's BUN and creatinine improved from admission (4) Macrocytic anemia: Code(s): D53.9 - Nutritional anemia, unspecified Status: Acute Assessment and Plan: Check iron studies as well as B12 and folates. Iron studies revealed low iron and % saturation, high ferritin, normal TIBC. B12 and folate normal Recommend iron supplement once G-tube is placed. (5) Abnormal urinalysis: Code(s): R82.90 - Unspecified abnormal findings in urine Status: Acute Assessment and Plan: UA abnormal: 3+ leukocyte esterase, 3-5 RBCs, WBCs 30 1-50, rare squamous epithelial Patient unable to voice any concerns. She has been started on ceftriaxone Urine culture preliminary positive for E coli Pending sensitivity on urine culture continue ceftriaxone for now (6) Dehydration: Code(s): E86.0 - Dehydration Status: Acute Assessment and Plan: She is being hydrated overnight as detailed above. (7) Hypercalcemia: Code(s): E83.52 - Hypercalcemia Status: Acute Assessment and Plan: In part due to dehydration. If no marked improvement with IV fluids a further workup can be pursued. (8) Type 2 diabetes mellitus: Code(s): E11.9 - Type 2 diabetes mellitus without complications Status: Acute Assessment and Plan: Initiate sliding scale insulin, Accu-Cheks, and hypoglycemic protocol. Check A1c. (9) Chronic obstructive pulmonary disease: Code(s): J44.9 - Chronic obstructive pulmonary disease, unspecified Status: Acute Assessment and Plan: No acute issues. (10) Paroxysmal atrial fibrillation: Code(s): I48.0 - Paroxysmal atrial fibrillation Status: Acute Assessment and Plan: Sounds to be in a normal sinus rhythm at this time. (11) Dry skin: Code(s): L85.3 - Xerosis cutis Status: Acute Assessment and Plan: Eucerin prescribed for whole-body hydration Flonase for nasal congestion p.r.n. Saline spray for dry nares p.r.n. Time Spent With Patient Time with patient: Greater than 35 minutes Sub
[2022-04-26 09:28] LABS: Glucose Point of Care 226 mg/dl (65-105)
[2022-04-26] MEDS: PANTOPRAZOLE SODIUM IV 40 MG VIAL IV PUSH ×2 (09:47→20:54)
[2022-04-26] MEDS: EUCERIN CREAM 120 GM JAR 1 APPLIC TOPICAL (09:47)
[2022-04-26] MEDS: FLUTICASONE PROPIONATE 0.05% NA SPR 16 GM BTL (*BKC) 1 SPRAY NASAL ×2 (09:47→20:54)
[2022-04-26] MEDS: INSULIN ASPART (*BKC) 100 UNITS/ML SUB-Q ×2 (09:55→12:19)
[2022-04-26] MEDS: LABETALOL HCL INJ 100 MG/20 ML VIAL 20 MG IV PUSH (10:04)
[2022-04-26] MEDS: ENOXAPARIN 30 MG/0.3 ML SYRINGE SUB-Q (10:10)
--- NOTE | 2022-04-26 11:04 | WPDCNINT ---
Assessment and Plan Assessment and plan (1) Hypertensive urgency: Code(s): I16.0 - Hypertensive urgency Status: Acute Assessment and Plan: Patient has history of resistant hypertension and is on multiple medications. Patient was not receiving her p.o. medication to lack of p.o. access. Peg tube has now been replaced Start nicardipine infusion to get systolic between 170-180. Resume p.o. medication once PEG tube can be used as per GI and and wean off infusion Patient at baseline is nonverbal unable provide any history She does have elevated creatinine (2) Dislodged gastrostomy tube: Code(s): T85.528A - Displacement of other gastrointestinal prosthetic devices, implants and grafts, initial encounter Status: Acute Assessment and Plan: New PEG tube was placed by GI Will start tube feeds once cleared by GI (3) Type 2 diabetes mellitus: Code(s): E11.9 - Type 2 diabetes mellitus without complications Status: Acute Assessment and Plan: Sliding scale insulin (4) Paroxysmal atrial fibrillation: Code(s): I48.0 - Paroxysmal atrial fibrillation Status: Acute Assessment and Plan: Currently in sinus rhythm Resume anticoagulation from tomorrow Resume Coreg (5) Chronic obstructive pulmonary disease: Code(s): J44.9 - Chronic obstructive pulmonary disease, unspecified Status: Acute Assessment and Plan: P.r.n. bronchodilator (6) Renal failure: Code(s): N19 - Unspecified kidney failure Status: Acute Assessment and Plan: Baseline creatinine unknown. Patient presented with elevated creatinine Continue IV fluids Check urine electrolytes CK and renal ultrasound Monitor electrolyte urine output and creatinine (7) Hypercalcemia: Code(s): E83.52 - Hypercalcemia Status: Acute Assessment and Plan: Could be secondary to dehydration Treat with IV fluids and monitor levels (8) Urinary tract infection: Code(s): N39.0 - Urinary tract infection, site not specified Status: Acute Assessment and Plan: UA suggestive of UTI and urine is growing ESBL Change antibiotics to imipenem Continue IV fluids Plan DVT prophylaxis -received Lovenox. Resume Eliquis tomorrow Stress ulcer prophylaxis -on PPI Nutrition -start tube feeds PEG tube is cleared by GI Code Status - Full Code Total Critical Care Time - minutes Due to a high probability of clinically significant, life threatening deterioration, the patient required my highest level of preparedness to intervene emergently and I personally spent this critical care time directly and personally managing the patient. This critical care time included obtaining a history; examining the patient; pulse oximetry; ordering and review of studies; arranging urgent treatment with development of a management plan; evaluation of patient's response to treatment; frequent reassessment; and discussions with other providers. It was exclusive of separately billable procedures and treating other patients and teaching time. Please see Assessment and Plan section and the rest of the note for further information on patient assessment and treatment Emergency Department Clinician Consult Note Consult date: 04/26/22 Reason for consult: Hypertensive urgency HPI: Aman Latham is a 72 year old female with history of stroke, dementia, hypertension, paroxysmal atrial fibrillation on chronic anticoagulation, COPD on 2 liters, and diabetes who presented to the emergency department yesterday from [facility] after her G-tube became dislodged. The patient is nonverbal and is unable to provide any history and all of the following history was obtained via a review of her electronic medical records.? Labs were significant for macrocytic anemia, BUN and creatinine of 96 and 2.80 respectively, and a calcium of 12.3. She has not been seen at this facility thus it is unclear what her baseline labs look like. ROSIE escobar
[2022-04-26 11:43] LABS: Basophils Percent Auto 0.1 % (0.2-1.2); Hematocrit 24.9 % (37.0-47.0); Hemoglobin 7.5 g/dL (12.0-15.0); Immature Granulocyte Absolute 0.08 K/mm3 (0.00-0.031); Immature Granulocyte Percent A 0.6 % (0-0.5); Lymphocytes Absolute Auto 0.76 K/mm3 (0.9-3.2); Lymphocytes Percent Auto 5.5 % (18.3-44.2); Mean Corpuscular HGB Conc 30.1 g/dl (32-36); Mean Corpuscular Hemoglobin 31.1 pg (26-34); Mean Corpuscular Volume 103.3 fl (80-100); Mean Platelet Volume 11.4 fl (7.4-10.4); Monocytes Absolute Auto 0.7 K/mm3 (0.1-0.6); Monocytes Percent Auto 4.9 % (2.6-8.5); Neutrophils Absolute Auto 12.2 K/mm3 (1.3-6.7); Neutrophils Percent Auto 88.9 % (45.5-73.1); Platelet Count Result 225 k/mm3 (150-375); Red Blood Count 2.41 M/mm3 (4.2-5.4); Red Cell Distribution Width 15.4 % (11.5-14.5); White Blood Count 13.8 K/mm3 (4.5-10.0)
[2022-04-26] MEDS: niCARdipine 20 MG/200 ML 20 MG/200 ML BAG 150 MG IV CONT (11:46)
--- NOTE | 2022-04-26 11:51 | PC.NURSE ---
This patient, Aman Latham, was transferred to [ICU 11 ] on 04/26/22 at 1151. Personal belongings sent with patient. Report given to [Anahi HENDRICKS ]. Appropriate documentation sent with patient.
[2022-04-26] MEDS: SODIUM CHLORIDE 0.45% 1,000 ML 125 ML IV CONT (11:52)
[2022-04-26] MEDS: NITROGLYCERIN OINTMENT 1 INCH DOSE TRANSDERM (11:52)
[2022-04-26] MEDS: cloNIDine HCL 0.1 MG TABLET 0.3 MG FEED TUBE ×2 (11:55→21:56)
[2022-04-26 11:58] LABS: Alanine Aminotransferase 39 U/L (6-35); Albumin Level 3.9 g/dL (3.5-5.1); Alkaline Phosphatase 137 U/L (38-126); Anion Gap 9 mmol/L (8-16); Aspartate Amino Transferase 50 U/L (14-36); Bilirubin,Total 0.5 mg/dL (0.2-1.3); Blood Urea Nitrogen 75 mg/dL (7-17); Calcium 10.8 mg/dL (8.4-10.2); Carbon Dioxide 34 mmol/L (22-30); Chloride 105 mmol/L (98-107); Estimated CRCL calculation 20 ml/min; Estimated Glomerular Filt Rate 28; Glucose 227 mg/dL (65-110); Potassium 3.5 mmol/L (3.4-5.0); Sodium 148 mmol/L (137-145)
[2022-04-26] MEDS: carvediloL 6.25 MG TABLET FEED TUBE ×2 (12:06→20:56)
[2022-04-26] MEDS: hydrALAZINE HCL 50 MG TABLET 100 MG FEED TUBE (12:07)
[2022-04-26] MEDS: CARBIDOPA/LEVODOPA 12.5/50 MG TABLET 1 TABLET FEED TUBE ×2 (12:07→17:50)
[2022-04-26 12:12] LABS: Creatine Kinase 29 U/L (30-135)
[2022-04-26 12:18] LABS: Glucose Point of Care 225 mg/dl (65-105)
[2022-04-26 12:30] LABS: Creatinine Urine 19.2 mg/dL
[2022-04-26 12:32] LABS: Sodium Urine Random 74 meq/L
[2022-04-26] MEDS: BENZTROPINE MESYLATE 1 MG TABLET FEED TUBE (17:50)
[2022-04-26 18:09] LABS: Glucose Point of Care 102 mg/dl (65-105)
[2022-04-26 21:08] LABS: Glucose Point of Care 137 mg/dl (65-105)
[2022-04-26] MEDS: hydrALAZINE HCL 50 MG TABLET PO (21:56)
[2022-04-27] VITALS (144 sets, daily range): BP systolic 122–233; BP diastolic 51–112; PULSE 67–145; RESP 9–25; TEMP 36.8–37.4; O2SAT 88–100
[2022-04-27] MEDS: CARBIDOPA/LEVODOPA 12.5/50 MG TABLET 1 TABLET FEED TUBE ×4 (00:24→17:31)
[2022-04-27] MEDS: SODIUM CHLORIDE 0.45% 1,000 ML 125 ML IV CONT (01:01)
[2022-04-27 04:49] LABS: Alanine Aminotransferase 15 U/L (6-35); Albumin Level 3.4 g/dL (3.5-5.1); Alkaline Phosphatase 109 U/L (38-126); Anion Gap 3 mmol/L (8-16); Aspartate Amino Transferase 50 U/L (14-36); Bilirubin,Total 0.3 mg/dL (0.2-1.3); Blood Urea Nitrogen 77 mg/dL (7-17); Calcium 9.8 mg/dL (8.4-10.2); Carbon Dioxide 34 mmol/L (22-30); Chloride 102 mmol/L (98-107); Estimated CRCL calculation 21 ml/min; Estimated Glomerular Filt Rate 30; Glucose 185 mg/dL (65-110); Magnesium 2.4 mg/dL (1.6-2.3); Potassium 3.5 mmol/L (3.4-5.0); Sodium 139 mmol/L (137-145)
[2022-04-27] MEDS: hydrALAZINE HCL 50 MG TABLET PO ×3 (06:09→22:17)
[2022-04-27] MEDS: cloNIDine HCL 0.1 MG TABLET 0.3 MG FEED TUBE ×3 (06:09→22:17)
[2022-04-27 06:29] LABS: Mean Corpuscular HGB Conc 29.6 g/dl (32-36); Mean Corpuscular Hemoglobin 31.3 pg (26-34); Mean Corpuscular Volume 105.6 fl (80-100); Platelet Count Result 178 k/mm3 (150-375); Red Blood Count 1.95 M/mm3 (4.2-5.4); Red Cell Distribution Width 15.4 % (11.5-14.5)
[2022-04-27 06:31] LABS: Hematocrit 20.6 % (37.0-47.0); Hemoglobin 6.1 g/dL (12.0-15.0)
[2022-04-27 08:54] LABS: Lactate Dehydrogenase 247 U/L (120-246)
[2022-04-27] MEDS: BENZTROPINE MESYLATE 1 MG TABLET FEED TUBE ×2 (09:17→17:31)
[2022-04-27] MEDS: EUCERIN CREAM 120 GM JAR 1 APPLIC TOPICAL (09:17)
[2022-04-27] MEDS: PANTOPRAZOLE SODIUM IV 40 MG VIAL IV PUSH ×2 (09:18→20:24)
[2022-04-27] MEDS: carvediloL 6.25 MG TABLET FEED TUBE ×2 (09:18→20:24)
[2022-04-27] MEDS: FLUTICASONE PROPIONATE 0.05% NA SPR 16 GM BTL (*BKC) 1 SPRAY NASAL ×2 (09:18→20:22)
[2022-04-27 10:01] LABS: Folic Acid > 20.0 ng/mL (2.76->20); Vitamin B12 > 1000.0 pg/mL (239-931)
[2022-04-27 10:44] LABS: Glucose Point of Care 182 mg/dl (65-105)
--- NOTE | 2022-04-27 11:03 | PCNFU ---
Nutrition Follow-Up Complete: Inadequate energy intake related to NPo status as evidenced by need for full tube feeding. Meet estimated nutrition needs -Goal being met via tube feeding Goal: Pt current nutrition is Glucerna 1.2 @ 65 ml/h with flushes 50 mlq 6 hours. Tolerating. Has existing PEG and on tube feeding at senior care. Nutrition recommendation: Continue current formula and goal rate. Last recorded weight is 79.1 kg. Bowel Motility: +1 BM 04/26/22 Labs Reviewed: Hgb 6.1, Hct 20.6, Alb 3.4, BUN 77, Cr 2.0, Glu 102-225 Meds Noted: Eliquis, Novolog, Protonix Skin: Pressure injury to coccyx. Not staged yet Additional Notes: Recommend Carlo flushes BID; however flushes have been reduced to 50 ml q 6 hours. Hold until fluid status improves. Monitoring tolerance, intakes, weights, labs, plan of care Follow up Tuesdays and Fridays
[2022-04-27 11:25] LABS: INR 1.2; Prothrombin Time 14.8 Seconds (11.1-14.7)
--- NOTE | 2022-04-27 11:29 | WPDINTPN ---
Progress Note: A&P Assessment and Plan (1) Hypertensive urgency: Code(s): I16.0 - Hypertensive urgency Status: Acute Assessment and Plan: Patient has history of resistant hypertension and is on multiple medications.? Patient was not receiving her p.o. medication to lack of p.o. access, due to dislodgement of her PEG tube. -04/26/2022: PEG tube was replaced by GI -patient was briefly on nicardipine infusion to get systolic between 170-180.? -patient was started on its her oral medications for PEG tube and her blood pressures remained stable, nicardipine was only on for about an hour and was turned off -Patient at baseline is nonverbal unable provide any history -patient had some elevated creatinine in which is trending down (2) Dislodged gastrostomy tube: Code(s): T85.528A - Displacement of other gastrointestinal prosthetic devices, implants and grafts, initial encounter Status: Acute Assessment and Plan: 04/26New PEG tube was placed by GI -patient on tube feeds and meds per PEG tube (3) Type 2 diabetes mellitus: Code(s): E11.9 - Type 2 diabetes mellitus without complications Status: Acute Assessment and Plan: Accu-Cheks and sliding scale insulin (4) Paroxysmal atrial fibrillation: Code(s): I48.0 - Paroxysmal atrial fibrillation Status: Acute Assessment and Plan: Currently in sinus rhythm Hold anticoagulation as patient dropped her hemoglobin Currently on Coreg (5) Chronic obstructive pulmonary disease: Code(s): J44.9 - Chronic obstructive pulmonary disease, unspecified Status: Acute Assessment and Plan: P.r.n. bronchodilators (6) Renal failure: Code(s): N19 - Unspecified kidney failure Status: Acute Assessment and Plan: Baseline creatinine unknown.? Patient presented with elevated creatinine Patient received adequate IV fluids, will discontinue since she is on tube feeds and antibiotics -04/26/2022: Renal ultrasound showed medical renal disease, no hydronephrosis, bladder wall thickening may be secondary to incomplete distention or cystitis in the appropriate clinical context. Urine lytes not reflective of prerenal picture -CPK level within normal limits -Monitor electrolyte urine output and creatinine (7) Hypercalcemia: Code(s): E83.52 - Hypercalcemia Status: Acute Assessment and Plan: Calcium levels have normalized, could be related to hypovolemia Will hold IV fluids as patient did receive a lot of IV fluids, tube feed flushes and tube feeds (8) Urinary tract infection: Code(s): N39.0 - Urinary tract infection, site not specified Status: Acute Assessment and Plan: 04/24/2022: Urine cultures growing ESBL E coli, -continue imipenem (9) Anemia: Code(s): D64.9 - Anemia, unspecified Status: Acute Assessment and Plan: Hemoglobin dropped to 6.1 this morning, -will obtain CT scan of the abdomen and pelvis to rule out any bleed as she had a PEG tube placed on 04/26/2022 -check vitamin B12 and folate levels -check haptoglobin and LDH -check iron panel -transfuse 1 unit of packed RBCs and recheck hemoglobin Plan DVT prophylaxis -hold Eliquis as patient dropped her hemoglobin to 6.1 this morning Stress ulcer prophylaxis -continue PPI IV Q12H Nutrition -continue tube feeds Code Status - Full Code Total Critical Care Time? -?31 minutes Due to a high probability of clinically significant, life threatening deterioration, the patient required my highest level of preparedness to intervene emergently and I personally spent this critical care time directly and personally managing the patient. This critical care time included obtaining a history; examining the patient; pulse oximetry; ordering and review of studies; arranging urgent treatment with development of a management plan; evaluation of patient's response to treatment; frequent reassessment; and discussions with ot
[2022-04-27 11:31] LABS: Iron 40 ug/dL (37-170)
[2022-04-27 11:37] LABS: Glucose Point of Care 200 mg/dl (65-105)
[2022-04-27 11:40] LABS: Percent Iron Saturation 14 % (20-50)
[2022-04-27] MEDS: SODIUM CHLORIDE 0.9% IV 250 ML 30 ML IV CONT (11:50)
[2022-04-27] MEDS: FUROSEMIDE INJ 40 MG/4 ML VIAL 20 MG IV PUSH (12:37)
--- NOTE | 2022-04-27 14:18 | WPDGIPROGNO ---
Progress Note: A&P Assessment and Plan (1) Dislodged gastrostomy tube: Code(s): T85.528A - Displacement of other gastrointestinal prosthetic devices, implants and grafts, initial encounter Status: Acute Assessment and Plan: I placed a new one yesterday, no difficulty because used same gastrostomy site TF at goal (2) Hypertensive urgency: Code(s): I16.0 - Hypertensive urgency Status: Acute Assessment and Plan: treated in ICU (3) Acute on chronic anemia: Code(s): D64.9 - Anemia, unspecified Status: Acute Assessment and Plan: noted drop h/h, nothing to explain anemia and peg site looks ok no report of melena (4) Urinary tract infection: Code(s): N39.0 - Urinary tract infection, site not specified Status: Acute (5) Dementia: Code(s): F03.90 - Unspecified dementia, unspecified severity, without behavioral disturbance, psychotic disturbance, mood disturbance, and anxiety Status: Acute Subjective Date/time seen: 04/27/22 14:18 Interval history: peg placement yesterday without any difficulty (used previous gastrostomy site), transferred to ICU because difficult to treat HTN Review of Systems Review of Systems: All systems reviewed & are unremarkable except as noted in HPI and below Exam Narrative: General: Patient is awake, in no acute distress at this time HEENT:? Pupils equal and reactive, sclera is clear, patient does not permit me to open her mouth Neck:? Supple Respiratory:? Clear to auscultation, coarse breath sounds at bases, no wheezing, adequate air entry Cardiac:? Regular rate and rhythm, S1-S2 is normal Abdomen:? Soft, nontender, nondistended, normoactive bowel sounds. G-tube site looks ok, no hematoma, no drainage. Tube feeding is working Extremities:? Mild edema, no clubbing or cyanosis, extremities are moves Neuro:? Patient is awake, tracks, acknowledges the examiner with a blank stare. Does not answer any questions or follows simple commands. Withdraws to pain in all extremities Objective Data Vital Signs Vital Signs: Vital Signs - 24 hr 04/26/22 14:30 04/26/22 14:45 04/26/22 15:00 Temperature 96.3 F L 96.5 F L 96.6 F L Pulse Rate 88 72 81 Respiratory Rate 13 14 13 Blood Pressure 105/55 L Pulse Oximetry 100 100 100 Oxygen Delivery Oxygen Flow Rate 04/26/22 15:01 04/26/22 16:00 04/26/22 16:00 Temperature 96.6 F L 96.5 F L Pulse Rate 77 76 Respiratory Rate 12 18 Blood Pressure 106/48 L Pulse Oximetry 100 100 100 Oxygen Delivery Nasal Cannula Oxygen Flow Rate 2 04/26/22 18:00 04/26/22 16:00 04/26/22 15:15 Temperature 96.6 F L Pulse Rate 85 76 87 Respiratory Rate 14 Blood Pressure Pulse Oximetry 97 Oxygen Delivery Oxygen Flow Rate 04/26/22 15:16 04/26/22 15:30 04/26/22 15:31 Temperature 95.9 F L 96.7 F L 96.7 F L Pulse Rate 86 84 84 Respiratory Rate 17 10 L 10 L Blood Pressure 130/74 127/64 Pulse Oximetry 99 100 100 Oxygen Delivery Oxygen Flow Rate 04/26/22 15:45 04/26/22 15:46 04/26/22 16:00 Temperature 96.7 F L 96.7 F L 96.5 F L Pulse Rate 84 86 76 Respiratory Rate 18 26 H 20 Blood Pressure 117/63 106/48 L Pulse Oximetry 100 100 100 Oxygen Delivery Oxygen Flow Rate 04/26/22 16:01 04/26/22 16:15 04/26/22 16:16 Temperature 96.5 F L 96.3 F L 96.3 F L Pulse Rate 76 77 79 Respiratory Rate 16 16 15 Blood Pressure 97/53 L Pulse Oximetry 100 100 100 Oxygen Delivery Oxygen Flow Rate 04/26/22 16:30 04/26/22 16:31 04/26/22 16:45 Temperature 96.5 F L 96.5 F L 96.3 F L Pulse Rate 75 75 75 Respiratory Rate 11 L 11 L 13 Blood Pressure 114/50 L 109/54 L Pulse Oximetry 100 100 100 Oxygen Delivery Oxygen Flow Rate 04/26/22 16:46 04/26/22 17:00 04/26/22 17:01 Temperature 96.3 F L 96.4 F L 96.4 F L Pulse Rate 75 80 86 Respiratory Rate 18 11 L 12 Blood Pressure 123/62 Pulse Oximetry 100 100 100 Oxygen Delivery Oxy
[2022-04-27] MEDS: CENTRAL LINE FLUSH 10 ML IV PUSH ×2 (14:28→20:24)
[2022-04-27 15:15] LABS: Glucose Point of Care 195 mg/dl (65-105)
[2022-04-27 15:47] LABS: Alveolar/Arterial O2 Gradient 36.4 mmHg; Base Excess ABG 4.9 mEq/l (+/-2.0); Carboxyhemoglobin 0.3 % THb (0-2.0); Fractional Inspired Oxygen 28 %; HCO3 ABG 32.1 mEq/l (22.0-26.0); Methemoglobin ABG 0.4 %THb (0-1.5); Oxygen Content ABG 12.4 %vol (16.0-22.0); Oxygen Saturation ABG 95.8 % (95.0-100.0); Oxyhemoglobin 94.6 % THb (90.0-100.0); PO2 ABG 88.1 mmHg (80.0-100.0); PO2 FiO2 Ratio Arterial Blood 3.15 %; Reduced Hemoglobin 4.7 %THb (0-5.0); Total Hemoglobin 9.2 g/dL (12.0-18.0)
[2022-04-27 15:50] LABS: Hematocrit 25.3 % (37.0-47.0); Hemoglobin 7.8 g/dL (12.0-15.0)
[2022-04-27 15:50] LABS: Device NASAL CANNULA; Modified Allen's Test Pass; PCO2 ABG 63.7 mmHg (35.0-45.0); Site Drawn RIGHT RADIAL
[2022-04-27] MEDS: FUROSEMIDE INJ 40 MG/4 ML VIAL IV PUSH (16:04)
[2022-04-27] MEDS: METOPROLOL TARTRATE INJ 5 MG/5 ML VIAL IV PUSH (16:04)
[2022-04-27 23:11] LABS: Glucose Point of Care 194 mg/dl (65-105)
[2022-04-28] VITALS (20 sets, daily range): BP systolic 136–184; BP diastolic 44–101; PULSE 66–93; RESP 11–21; TEMP 36.2–37.2; O2SAT 91–100
--- NOTE | 2022-04-28 | ECHO_ITS ---
Patient Info Name: Aman Latham Age: 72 years : 1950 Gender: Female Ht: 60 in Wt: 175 lbs BSA: 1.87 m2 HR: 79 bpm BP: 150 / 59 mmHg Heart Rhythm: Sinus Rhythm Exam Date: 04/28/2022 10:00 AM Exam Location: [facility] Patient Status: Inpatient Admit Date: 04/25/2022 Staff Ordering Physician: Rj Marie MD [employer] Digitizer: Savage Canales, MARIA TERESA, RT Attending Provider: Adam Pitts MD Referring Physician: Frank PORTER; Exam Type: CA echo dop color flow w con Study Info Indications J81.0 - Acute pulmonary edema Complete two-dimensional, color flow and Doppler transthoracic echocardiogram is performed with contrast to opacify the left ventricle and to improve the deliniation of the left ventricle endocardial borders. Strain analysis performed. Summary 1. Left ventricular chamber dimension is normal. 2. Left ventricular systolic function is hyperdynamic, estimated at >70%. 3. There is severely increased left ventricular wall thickness. 4. The left ventricular diastolic function is grade I diastolic dysfunction. 5. E/e' 29.92 is moderately elevated. 6. Global longitudinal strain is severely elevated at -10 %. 7. There is mild mitral valve regurgitation. 8. There is mild to moderate tricuspid valve regurgitation. 9. Moderate pulmonary hypertension, estimated pulmonary arterial systolic pressure is 56 mmHg. Left Ventricle Left ventricular chamber dimension is normal. Left ventricular systolic function is hyperdynamic, estimated at >70%. There is severely increased left ventricular wall thickness. The left ventricular diastolic function is grade I diastolic dysfunction. E/e' 29.92 is moderately elevated. Global longitudinal strain is severely elevated at -10 %. Right Ventricle Right ventricular chamber dimension is normal. Right ventricular systolic function is normal. Left Atria Left atrial chamber dimension is mildly enlarged. Right Atria Right atrial chamber dimension is normal. Aortic Valve The aortic valve is trileaflet. There is no aortic valve stenosis. There is no aortic valve regurgitation. There is mild aortic valve calcification. Pulmonic Valve The pulmonic valve is not well visualized. There is trace pulmonic regurgitation. Mitral Valve The mitral valve has thickened leaflets. There is mild mitral valve regurgitation. The mitral valve annulus is moderately calcified. Tricuspid Valve The tricuspid valve leaflets are normal. There is mild to moderate tricuspid valve regurgitation. Moderate pulmonary hypertension, estimated pulmonary arterial systolic pressure is 56 mmHg. Pericardium/Pleural The pericardium appears normal. There is no pericardial effusion. Inferior Vena Cava Dilated inferior vena cava with <50% collapse upon inspiration consistent with elevated right atrial pressure, 10 mmHg. Aorta The aortic root size at the sinus of Valsalva is normal. There is moderate aortic atherosclerosis. Left Ventricular Outflow Tract Name Value Normal LVOT 2D LVOT Diameter 2.00 cm LVOT Doppler LVOT Peak Gradient 4 mmHg
[2022-04-28] MEDS: CARBIDOPA/LEVODOPA 12.5/50 MG TABLET 1 TABLET FEED TUBE ×5 (00:29→23:59)
[2022-04-28] MEDS: hydrALAZINE HCL 20 MG/ML VIAL IV PUSH (02:45)
--- NOTE | 2022-04-28 02:45 | PC.NURSE ---
0245 hydralazine 20mg given ivp as order for bp 184/66
[2022-04-28] MEDS: hydrALAZINE HCL 50 MG TABLET PO ×3 (05:12→22:24)
[2022-04-28] MEDS: cloNIDine HCL 0.1 MG TABLET 0.3 MG FEED TUBE ×3 (05:14→22:23)
[2022-04-28] MEDS: CENTRAL LINE FLUSH 10 ML IV PUSH ×3 (05:15→22:37)
[2022-04-28 05:18] LABS: Hematocrit 23.4 % (37.0-47.0); Hemoglobin 7.2 g/dL (12.0-15.0); Mean Corpuscular HGB Conc 30.8 g/dl (32-36); Mean Corpuscular Hemoglobin 29.3 pg (26-34); Mean Corpuscular Volume 95.1 fl (80-100); Mean Platelet Volume 11.5 fl (7.4-10.4); Platelet Count Result 152 k/mm3 (150-375); Red Blood Count 2.46 M/mm3 (4.2-5.4); Red Cell Distribution Width 19.1 % (11.5-14.5); White Blood Count 8.4 K/mm3 (4.5-10.0)
[2022-04-28 05:30] LABS: Alanine Aminotransferase 13 U/L (6-35); Albumin Level 3.3 g/dL (3.5-5.1); Alkaline Phosphatase 102 U/L (38-126); Anion Gap 5 mmol/L (8-16); Aspartate Amino Transferase 29 U/L (14-36); Bilirubin,Total 0.3 mg/dL (0.2-1.3); Blood Urea Nitrogen 76 mg/dL (7-17); Calcium 9.4 mg/dL (8.4-10.2); Carbon Dioxide 34 mmol/L (22-30); Chloride 102 mmol/L (98-107); Estimated CRCL calculation 19 ml/min; Estimated Glomerular Filt Rate 27; Glucose 193 mg/dL (65-110); Magnesium 2.2 mg/dL (1.6-2.3); Potassium 3.7 mmol/L (3.4-5.0); Sodium 141 mmol/L (137-145)
[2022-04-28 08:21] LABS: Alveolar/Arterial O2 Gradient 91.3 mmHg; Base Excess ABG 7.6 mEq/l (+/-2.0); Fractional Inspired Oxygen 35 %; HCO3 ABG 32.7 mEq/l (22.0-26.0); Oxygen Content ABG 10.6 %vol (16.0-22.0); Oxygen Saturation ABG 97.7 % (95.0-100.0); Oxyhemoglobin 96.2 % THb (90.0-100.0); PCO2 ABG 49.9 mmHg (35.0-45.0); PO2 ABG 100.2 mmHg (80.0-100.0); PO2 FiO2 Ratio Arterial Blood 2.86 %; pH ABG 7.434 (7.350-7.450)
[2022-04-28 08:25] LABS: Total Hemoglobin 7.7 g/dL (12.0-18.0)
[2022-04-28 08:26] LABS: Device HIGH FLOW THERAPY; Modified Allen's Test Pass; Site Drawn LEFT RADIAL
[2022-04-28] MEDS: FUROSEMIDE INJ 40 MG/4 ML VIAL 20 MG IV PUSH (09:01)
[2022-04-28] MEDS: PANTOPRAZOLE SODIUM IV 40 MG VIAL IV PUSH ×2 (09:02→22:24)
[2022-04-28] MEDS: carvediloL 6.25 MG TABLET FEED TUBE ×2 (09:03→22:24)
[2022-04-28] MEDS: FLUTICASONE PROPIONATE 0.05% NA SPR 16 GM BTL (*BKC) 1 SPRAY NASAL ×2 (09:03→22:31)
[2022-04-28] MEDS: BENZTROPINE MESYLATE 1 MG TABLET FEED TUBE ×2 (09:03→18:37)
[2022-04-28] MEDS: EUCERIN CREAM 120 GM JAR 1 APPLIC TOPICAL (09:03)
[2022-04-28] MEDS: PERFLUTREN LIPID MICROSPHERES 1.5 ML VIAL DILUTED TO 10 ML TOTAL VOLUME IV PUSH (10:34)
--- NOTE | 2022-04-28 10:34 | IVDEFINITY ---
Prior to administration of IV Definity the patient was educated on the risks and benefits of the imaging enhancing agent including potential adverse side effects. The patient verbalized understanding. Allergies were verified. No exclusion criteria were identified and at least one of the following inclusion criteria were met: 1) physician request, 2) patient technically difficult to image (per the [place] [employer] guidelines of two or more segments not discernable within the apical view), or 3) questionable left ventricular function. ?
[2022-04-28 11:38] LABS: Glucose Point of Care 209 mg/dl (65-105)
[2022-04-28] MEDS: SILVERGEL (ELTA) 45 ML 1 APPLIC TOPICAL (11:52)
[2022-04-28] MEDS: INSULIN ASPART (*BKC) 100 UNITS/ML SUB-Q ×2 (11:52→18:41)
--- NOTE | 2022-04-28 12:16 | PCFNICU ---
ICU Rounding Note: Pt current nutrition is Glucerna 1.2 @ 65 ml/h providing 1720 kcals, 85 g protein, 1151 ml free water. fLUSHES 50 ml q 4 hours. Total water 1450 mls Nutrition recommendation: Continue with same tube feeding order and care plan. Last recorded weight is 79.4 kg. Bowel Motility: +1 BM 04/26/22 Labs Reviewed: Hgb 7.2, Hct 23.4, Alb 3.3, GFR 27, BUN 76, Cre 2.2, Glu 193 Meds Noted: Eliquis, novolog, protonix Skin: Pressure injury to coccyx Additional Notes: Pt would benefit from Carlo flushes but flushes are ordered at 50 ml q 4 hours which is not enough to mix Carlo with. Continue same order. Following daily in ICU rounds. Monitoring tolerance, intakes, weights, labs, plan of care Follow up Tuesdays and Fridays.
--- NOTE | 2022-04-28 13:12 | WPDINTPN ---
Progress Note: A&P Assessment and Plan (1) Hypertensive urgency: Code(s): I16.0 - Hypertensive urgency Status: Acute Assessment and Plan: RESOLVED Patient has history of resistant hypertension and is on multiple medications.? Patient was not receiving her p.o. medication to lack of p.o. access, due to dislodgement of her PEG tube. -04/26/2022: PEG tube was replaced by GI -patient was briefly on nicardipine infusion to get systolic between 170-180.? -patient was started on its her oral medications for PEG tube and her blood pressures remained stable, nicardipine was only on for about an hour and was turned off -Patient at baseline is nonverbal unable provide any history (2) Dislodged gastrostomy tube: Code(s): T85.528A - Displacement of other gastrointestinal prosthetic devices, implants and grafts, initial encounter Status: Acute Assessment and Plan: 04/26New PEG tube was placed by GI -patient on tube feeds and meds per PEG tube (3) Type 2 diabetes mellitus: Code(s): E11.9 - Type 2 diabetes mellitus without complications Status: Acute Assessment and Plan: Accu-Cheks and sliding scale insulin (4) Paroxysmal atrial fibrillation: Code(s): I48.0 - Paroxysmal atrial fibrillation Status: Acute Assessment and Plan: Currently in sinus rhythm Hold anticoagulation as patient dropped her hemoglobin Currently on Coreg (5) Chronic obstructive pulmonary disease: Code(s): J44.9 - Chronic obstructive pulmonary disease, unspecified Status: Acute Assessment and Plan: P.r.n. bronchodilators (6) Renal failure: Code(s): N19 - Unspecified kidney failure Status: Acute Assessment and Plan: Baseline creatinine unknown.? Patient presented with elevated creatinine Patient received adequate IV fluids, will discontinue since she is on tube feeds and antibiotics -04/26/2022: Renal ultrasound showed medical renal disease, no hydronephrosis, bladder wall thickening may be secondary to incomplete distention or cystitis in the appropriate clinical context. Urine lytes not reflective of prerenal picture -CPK level within normal limits -Monitor electrolyte urine output and creatinine (7) Hypercalcemia: Code(s): E83.52 - Hypercalcemia Status: Acute Assessment and Plan: Calcium levels have normalized, could be related to hypovolemia Will hold IV fluids as patient did receive a lot of IV fluids, tube feed flushes and tube feeds (8) Urinary tract infection: Code(s): N39.0 - Urinary tract infection, site not specified Status: Acute Assessment and Plan: 04/24/2022: Urine cultures growing ESBL E coli, -continue imipenem (9) Anemia: Code(s): D64.9 - Anemia, unspecified Status: Acute Assessment and Plan: Hemoglobin dropped to 6.1 this morning, -will obtain CT scan of the abdomen and pelvis to rule out any bleed as she had a PEG tube placed on 04/26/2022 -check vitamin B12 and folate levels -check haptoglobin and LDH -check iron panel -transfuse 1 unit of packed RBCs and recheck hemoglobin Plan DVT prophylaxis -hold Eliquis as patient dropped her hemoglobin to 6.1 on 04/27 Stress ulcer prophylaxis -continue PPI IV Q12H Nutrition -continue tube feeds Code Status - Full Code Total Critical Care Time? -?31 minutes Due to a high probability of clinically significant, life threatening deterioration, the patient required my highest level of preparedness to intervene emergently and I personally spent this critical care time directly and personally managing the patient. This critical care time included obtaining a history; examining the patient; pulse oximetry; ordering and review of studies; arranging urgent treatment with development of a management plan; evaluation of patient's response to treatment; frequent reassessment; and discussions with other providers. It was exclusive of separately billable proc
--- NOTE | 2022-04-28 15:41 | PC.NURSE ---
This patient, Aman Latham, was transferred to [facility] on 04/28/22 at 1541. Personal belongings sent with patient. Report given to Allison HENDRICKS. Appropriate documentation sent with patient.
--- NOTE | 2022-04-28 15:50 | WPDGIPROGNO ---
Progress Note: A&P Assessment and Plan (1) Dislodged gastrostomy tube: Code(s): T85.528A - Displacement of other gastrointestinal prosthetic devices, implants and grafts, initial encounter Status: Acute Assessment and Plan: g-tube is working ok, no difficulty because used same gastrostomy site TF at goal CT scan reviewed, no signs of bleeding (2) Hypertensive urgency: Code(s): I16.0 - Hypertensive urgency Status: Acute Assessment and Plan: treated in ICU and now on oral meds (3) Acute on chronic anemia: Code(s): D64.9 - Anemia, unspecified Status: Acute Assessment and Plan: noted drop h/h, nothing to explain anemia and peg site looks ok no report of melena h/h better after blood transfusion will follow [place], call if questions (4) Urinary tract infection: Code(s): N39.0 - Urinary tract infection, site not specified Status: Acute (5) Dementia: Code(s): F03.90 - Unspecified dementia, unspecified severity, without behavioral disturbance, psychotic disturbance, mood disturbance, and anxiety Status: Acute Subjective Date/time seen: 04/28/22 15:50 Interval history: no events, tolerating tube feeding at goal Review of Systems Review of Systems: All systems reviewed & are unremarkable except as noted in HPI and below Exam Narrative: General: Patient is awake, in no acute distress at this time HEENT:? Pupils equal and reactive, sclera is clear, patient does not permit me to open her mouth Neck:? Supple Respiratory:? Clear to auscultation, coarse breath sounds at bases, no wheezing, adequate air entry Cardiac:? Regular rate and rhythm, S1-S2 is normal Abdomen:? Soft, nontender, nondistended, normoactive bowel sounds. G-tube site looks ok, no hematoma, no drainage. Tube feeding is working Extremities:? Mild edema, no clubbing or cyanosis, extremities are moves Neuro:? Patient is awake, tracks, acknowledges the examiner with a blank stare. Does not answer any questions or follows simple commands. Withdraws to pain in all extremities Objective Data Vital Signs Vital Signs: Vital Signs - 24 hr 04/27/22 15:51 04/27/22 16:04 04/27/22 16:00 Temperature 98.9 F Pulse Rate 93 122 H 90 Respiratory Rate 16 Blood Pressure Pulse Oximetry 92 Oxygen Delivery Oxygen Flow Rate Fraction of Inspired Oxygen 04/27/22 15:55 04/27/22 16:00 04/27/22 16:01 Temperature 98.9 F 99.0 F 99.0 F Pulse Rate 96 90 87 Respiratory Rate 18 14 13 Blood Pressure 149/67 H 148/62 H Pulse Oximetry 89 L 89 L 93 Oxygen Delivery Oxygen Flow Rate Fraction of Inspired Oxygen 04/27/22 16:00 04/27/22 16:40 04/27/22 18:00 Temperature Pulse Rate 124 H 78 Respiratory Rate 22 H Blood Pressure Pulse Oximetry 90 100 Oxygen Delivery High Flow Therapy with Na High Flow Therapy with Na Oxygen Flow Rate 40 40 Fraction of Inspired Oxygen 40 45 04/27/22 16:05 04/27/22 16:10 04/27/22 16:15 Temperature 98.9 F 99.0 F 98.9 F Pulse Rate 89 88 87 Respiratory Rate 16 14 15 Blood Pressure 147/58 H 145/65 H 147/111 H Pulse Oximetry 89 L 90 88 L Oxygen Delivery Oxygen Flow Rate Fraction of Inspired Oxygen 04/27/22 16:16 04/27/22 16:21 04/27/22 16:25 Temperature 99.0 F 99.0 F 99.0 F Pulse Rate 83 85 84 Respiratory Rate 17 17 20 Blood Pressure 148/57 H 149/54 H Pulse Oximetry 93 93 89 L Oxygen Delivery Oxygen Flow Rate Fraction of Inspired Oxygen 04/27/22 16:30 04/27/22 16:31 04/27/22 16:36 Temperature 99.0 F 99.1 F 99.1 F Pulse Rate 83 78 75 Respiratory Rate 12 12 13 Blood Pressure 146/54 H 134/54 L Pulse Oximetry 98 100 100 Oxygen Delivery Oxygen Flow Rate Fraction of Inspired Oxygen 04/27/22 16:40 04/27/22 16:45 04/27/22 16:46 Temperature 99.1 F 99.1 F 99.1 F Pulse Rate 77 75 74 Respiratory Rate 13 11 L 9 L Blood Pressure 140/57 L 140/51 L Pulse Oximetry 100 100 100 Oxygen
[2022-04-28 18:08] LABS: Glucose Point of Care 205 mg/dl (65-105)
[2022-04-29] VITALS (9 sets, daily range): BP systolic 145–181; BP diastolic 55–91; PULSE 61–83; RESP 18–20; TEMP 36.4–36.9; O2SAT 93–100
[2022-04-29] MEDS: INSULIN ASPART (*BKC) 100 UNITS/ML SUB-Q ×4 (00:08→17:33)
[2022-04-29 00:25] LABS: Glucose Point of Care 224 mg/dl (65-105)
[2022-04-29] MEDS: CARBIDOPA/LEVODOPA 12.5/50 MG TABLET 1 TABLET FEED TUBE ×3 (06:25→17:26)
[2022-04-29] MEDS: hydrALAZINE HCL 50 MG TABLET PO ×3 (06:25→21:20)
[2022-04-29] MEDS: cloNIDine HCL 0.1 MG TABLET 0.3 MG FEED TUBE ×3 (06:26→21:21)
[2022-04-29] MEDS: CENTRAL LINE FLUSH 10 ML IV PUSH ×3 (06:27→21:21)
[2022-04-29 06:55] LABS: Glucose Point of Care 238 mg/dl (65-105)
[2022-04-29 06:58] LABS: Basophils Percent Auto 0.2 % (0.2-1.2); Eosinophils Absolute Auto 0.2 K/mm3 (0-0.3); Eosinophils Percent Auto 2.6 % (0-4.4); Hemoglobin 7.6 g/dL (12.0-15.0); Immature Granulocyte Absolute 0.11 K/mm3 (0.00-0.031); Immature Granulocyte Percent A 1.3 % (0-0.5); Lymphocytes Absolute Auto 1.19 K/mm3 (0.9-3.2); Lymphocytes Percent Auto 14.2 % (18.3-44.2); Mean Corpuscular HGB Conc 30.4 g/dl (32-36); Mean Corpuscular Hemoglobin 29.9 pg (26-34); Mean Corpuscular Volume 98.4 fl (80-100); Mean Platelet Volume 12.3 fl (7.4-10.4); Monocytes Absolute Auto 0.4 K/mm3 (0.1-0.6); Monocytes Percent Auto 5.3 % (2.6-8.5); Neutrophils Absolute Auto 6.4 K/mm3 (1.3-6.7); Neutrophils Percent Auto 76.4 % (45.5-73.1); Platelet Count Result 159 k/mm3 (150-375); Red Blood Count 2.54 M/mm3 (4.2-5.4); Red Cell Distribution Width 18.5 % (11.5-14.5); White Blood Count 8.4 K/mm3 (4.5-10.0)
[2022-04-29 06:59] LABS: Lactic Acid Reflex 0.9 mmol/L (0.7-2.0)
[2022-04-29 07:06] LABS: Alanine Aminotransferase 13 U/L (6-35); Albumin Level 3.3 g/dL (3.5-5.1); Alkaline Phosphatase 103 U/L (38-126); Anion Gap 7 mmol/L (8-16); Aspartate Amino Transferase 28 U/L (14-36); Bilirubin,Total 0.6 mg/dL (0.2-1.3); Blood Urea Nitrogen 82 mg/dL (7-17); Calcium 9.3 mg/dL (8.4-10.2); Carbon Dioxide 31 mmol/L (22-30); Chloride 104 mmol/L (98-107); Estimated CRCL calculation 22 ml/min; Estimated Glomerular Filt Rate 31; Glucose 241 mg/dL (65-110); Magnesium 2.3 mg/dL (1.6-2.3); Phosphorus 2.4 mg/dL (2.5-4.5); Potassium 3.8 mmol/L (3.4-5.0); Sodium 142 mmol/L (137-145)
[2022-04-29 08:56] LABS: Glucose Point of Care 244 mg/dl (65-105)
--- NOTE | 2022-04-29 09:10 | PM.IMPN ---
Progress Note: A&P Assessment and Plan (1) Hypertensive urgency: Code(s): I16.0 - Hypertensive urgency Status: Acute (2) Dislodged gastrostomy tube: Code(s): T85.528A - Displacement of other gastrointestinal prosthetic devices, implants and grafts, initial encounter Status: Acute (3) Type 2 diabetes mellitus: Code(s): E11.9 - Type 2 diabetes mellitus without complications Status: Acute (4) Paroxysmal atrial fibrillation: Code(s): I48.0 - Paroxysmal atrial fibrillation Status: Acute (5) Chronic obstructive pulmonary disease: Code(s): J44.9 - Chronic obstructive pulmonary disease, unspecified Status: Acute (6) Renal failure: Code(s): N19 - Unspecified kidney failure Status: Acute (7) Hypercalcemia: Code(s): E83.52 - Hypercalcemia Status: Acute (8) Urinary tract infection: Code(s): N39.0 - Urinary tract infection, site not specified Status: Acute (9) Anemia: Code(s): D64.9 - Anemia, unspecified Status: Acute Plan # hyperensive urgency: resovled. History of resistant hypertension on multiple medications. Patient receiving p.o. medication due to lack up p.o. access due to dislodgement of PEG tube. Was started on nicardipine infusion to get systolic between 170-180 on admission. Now back to oral medication. Echo with normal EF grade 1 diastolic dysfunction: Mild TR. # dislodgement of G-tube: New 2 tube placed by GI 04/26/2022 # nonverbal at baseline unable to provide any history. [facility] resident # type 2 diabetes mellitus: Accu-Cheks and SSI on Levemir and NPH at care home . Will resume Levemir and NovoLog. Accu-Cheks trend reviewed # abnormal chest x-ray opacities patchy present. On imipenem which will be continued. Unclear if this is pneumonia or congestive changes. # paroxysmal atrial fibrillation: Currently in sinus rhythm. On apixaban at home which is on hold due to anemia # COPD: P.r.n. bronchodilators not in exacerbation # renal insufficiency: Unknown baseline. Presented with elevated creatinine At 2.8. Received adequate IV fluids. Renal ultrasound 04/26/2022 with medical renal disease no hydronephrosis. Bladder wall thickening may be secondary to Idris incomplete distension or cystitis in the appropriate clinical settings. Urine lytes not reflective of prerenal picture. CPK normal. creatinine continues to improve down to 1.9 today # hypercalcemia: Likely related to hypovolemia. This has resolved with IV hydration # UTI: Urine culture with ESBL E coli. On imipenem. # anemia: Hemoglobin dropped to 6.1. Received 1 unit of packed red blood cell. Recheck and monitor. No signs of bleeding. CT abdomen pelvis with no evidence of bled. vitamin B12 folic acid haptoglobin LDH iron panel . Ferritin is 312 iron profile suggestive of anemia chronic disease likely related to underlying chronic kidney disease. B12 folic acid is normal. LDH is high as 247. TSH is normal anemia is macrocytic. Haptoglobin is pending # DVT prophylaxis: Eliquis on hold due to anemia of 6.1 on 04/27 # stress ulcer prophylaxis PPI # nutrition tube feed # code status full code # history of stroke /dementia # chronic respiratory failure on 2 L oxygen due to COPD acute exacerbation on 04/27/2022 with hypercarbia on ABG. Placed on high-flow oxygen which has been tapered of now. Subjective Date/time seen: 04/29/22 09:10 Interval history: . Transferred out of the ICU yesterday. Chart reviewed. Patient nonverbal. Review of system could not be completed. From care home due to G-tube dislodgement and had hypertensive Urgency. Review of Systems Review of Systems: ROS unobtainable: Yes unobtainable due to mental status Exam Narrative: General: Patient is awake, in no acute distress at this time; non verbal HEENT:? Pupils equal and reactive, sclera is clear, patient does not permit me to open her mouth Neck
[2022-04-29] MEDS: carvediloL 6.25 MG TABLET FEED TUBE ×2 (10:10→21:20)
[2022-04-29] MEDS: FLUTICASONE PROPIONATE 0.05% NA SPR 16 GM BTL (*BKC) 1 SPRAY NASAL ×2 (10:11→21:21)
[2022-04-29] MEDS: BENZTROPINE MESYLATE 1 MG TABLET FEED TUBE ×2 (10:11→17:26)
[2022-04-29] MEDS: PANTOPRAZOLE SODIUM IV 40 MG VIAL IV PUSH ×2 (10:11→21:21)
[2022-04-29] MEDS: EUCERIN CREAM 120 GM JAR 1 APPLIC TOPICAL (10:12)
[2022-04-29] MEDS: INSULIN GLARGINE (*BKC) 100 UNITS/ML 15 UNITS SUB-Q ×2 (10:14→21:27)
[2022-04-29] MEDS: SILVERGEL (ELTA) 45 ML 1 APPLIC TOPICAL (10:28)
[2022-04-29 11:22] LABS: Haptoglobin 228 mg/dL (43-212)
[2022-04-29 12:26] LABS: Glucose Point of Care 259 mg/dl (65-105)
[2022-04-29 16:43] LABS: Glucose Point of Care 238 mg/dl (65-105)
[2022-04-29 17:37] LABS: Glucose Point of Care 230 mg/dl (65-105)
[2022-04-29 21:55] LABS: Glucose Point of Care 228 mg/dl (65-105)
[2022-04-30] VITALS (8 sets, daily range): BP systolic 148–183; BP diastolic 58–92; PULSE 62–93; RESP 18–22; TEMP 36.5–37.2; O2SAT 92–96
[2022-04-30 00:14] LABS: Glucose Point of Care 210 mg/dl (65-105)
[2022-04-30] MEDS: CARBIDOPA/LEVODOPA 12.5/50 MG TABLET 1 TABLET FEED TUBE ×4 (00:26→18:42)
[2022-04-30] MEDS: INSULIN ASPART (*BKC) 100 UNITS/ML SUB-Q ×4 (00:26→18:44)
[2022-04-30] MEDS: hydrALAZINE HCL 50 MG TABLET PO ×3 (06:18→21:11)
[2022-04-30] MEDS: cloNIDine HCL 0.1 MG TABLET 0.3 MG FEED TUBE ×3 (06:18→21:11)
[2022-04-30] MEDS: CENTRAL LINE FLUSH 10 ML IV PUSH ×3 (06:19→21:08)
[2022-04-30 06:58] LABS: Glucose Point of Care 201 mg/dl (65-105)
[2022-04-30 08:12] LABS: Hematocrit 23.5 % (37.0-47.0); Hemoglobin 7.3 g/dL (12.0-15.0); Mean Corpuscular HGB Conc 31.1 g/dl (32-36); Mean Corpuscular Hemoglobin 29.7 pg (26-34); Mean Corpuscular Volume 95.5 fl (80-100); Mean Platelet Volume 11.8 fl (7.4-10.4); Platelet Count Result 153 k/mm3 (150-375); Red Blood Count 2.46 M/mm3 (4.2-5.4); Red Cell Distribution Width 17.3 % (11.5-14.5); White Blood Count 9.6 K/mm3 (4.5-10.0)
[2022-04-30] MEDS: INSULIN GLARGINE (*BKC) 100 UNITS/ML 15 UNITS SUB-Q (08:25)
[2022-04-30] MEDS: carvediloL 6.25 MG TABLET FEED TUBE ×2 (08:32→21:11)
[2022-04-30] MEDS: FLUTICASONE PROPIONATE 0.05% NA SPR 16 GM BTL (*BKC) 1 SPRAY NASAL ×2 (08:33→21:06)
[2022-04-30] MEDS: PANTOPRAZOLE SODIUM IV 40 MG VIAL IV PUSH ×2 (08:33→21:07)
[2022-04-30] MEDS: BENZTROPINE MESYLATE 1 MG TABLET FEED TUBE ×2 (08:33→18:43)
[2022-04-30] MEDS: EUCERIN CREAM 120 GM JAR 1 APPLIC TOPICAL (08:34)
[2022-04-30] MEDS: SILVERGEL (ELTA) 45 ML 1 APPLIC TOPICAL (08:34)
[2022-04-30 08:37] LABS: Alanine Aminotransferase 11 U/L (6-35); Alkaline Phosphatase 94 U/L (38-126); Anion Gap 6 mmol/L (8-16); Aspartate Amino Transferase 24 U/L (14-36); Bilirubin,Total 0.5 mg/dL (0.2-1.3); Blood Urea Nitrogen 78 mg/dL (7-17); Calcium 9.2 mg/dL (8.4-10.2); Carbon Dioxide 30 mmol/L (22-30); Chloride 112 mmol/L (98-107); Estimated CRCL calculation 23 ml/min; Estimated Glomerular Filt Rate 31; Glucose 200 mg/dL (65-110); Magnesium 2.2 mg/dL (1.6-2.3); Sodium 148 mmol/L (137-145)
[2022-04-30 12:06] LABS: Glucose Point of Care 210 mg/dl (65-105)
[2022-04-30] MEDS: FUROSEMIDE INJ 40 MG/4 ML VIAL IV PUSH (12:43)
--- NOTE | 2022-04-30 13:50 | PCNFU ---
Nutrition Follow-Up Complete: Inadequate energy intake related to NPo status as evidenced by need for full tube feeding. Goal: Meet estimated nutrition needs - Goal being met with current tube feeding orders. Pt current nutrition is Glucerna 1.2 @ 65 ml/h with flushes 200 ml q 6 h. 1720 kcals, 85 g protein, 1150 ml free water. Nutrition recommendation: Continue same tube feeding orders and flushes. Last recorded weight is 86.5 kg. Bowel Motility: +1 BM 04/26/22 Labs Reviewed: Hgb 7.3, Hct 23.5, Na 148, 78 BUN , Cre 1.9, Glu 210 Meds Noted: Eliquis, Novolog, protonix, lantus Skin: Stage III pressure injury Coccyx Additional Notes: Tolerating tube feeding with no residuals. Continue current tube feeding Monitoring tolerance, intakes, weights, labs, plan of care Follow up Tuesdays and Fridays
--- NOTE | 2022-04-30 17:22 | PM.IMPN ---
Progress Note: A&P Assessment and Plan (1) Hypertensive urgency: Code(s): I16.0 - Hypertensive urgency Status: Acute (2) Dislodged gastrostomy tube: Code(s): T85.528A - Displacement of other gastrointestinal prosthetic devices, implants and grafts, initial encounter Status: Acute (3) Type 2 diabetes mellitus: Code(s): E11.9 - Type 2 diabetes mellitus without complications Status: Acute (4) Paroxysmal atrial fibrillation: Code(s): I48.0 - Paroxysmal atrial fibrillation Status: Acute (5) Chronic obstructive pulmonary disease: Code(s): J44.9 - Chronic obstructive pulmonary disease, unspecified Status: Acute (6) Renal failure: Code(s): N19 - Unspecified kidney failure Status: Acute (7) Hypercalcemia: Code(s): E83.52 - Hypercalcemia Status: Acute (8) Urinary tract infection: Code(s): N39.0 - Urinary tract infection, site not specified Status: Acute (9) Anemia: Code(s): D64.9 - Anemia, unspecified Status: Acute Plan # hyperensive urgency: resovled. History of resistant hypertension on multiple medications. Patient receiving p.o. medication due to lack up p.o. access due to dislodgement of PEG tube. Was started on nicardipine infusion to get systolic between 170-180 on admission. Now back to oral medication. Echo with normal EF grade 1 diastolic dysfunction: Mild TR. # dislodgement of G-tube: New 2 tube placed by GI 04/26/2022 # nonverbal at baseline unable to provide any history. [facility] resident # type 2 diabetes mellitus: Accu-Cheks and [facility] . Resumed Levemir and NovoLog. Accu-Cheks trend reviewed. # abnormal chest x-ray opacities patchy present. On imipenem which will be continued. Unclear if this is pneumonia or congestive changes. # paroxysmal atrial fibrillation: Currently in sinus rhythm. On apixaban at home which is on hold due to anemia # COPD: P.r.n. bronchodilators not in exacerbation # renal insufficiency: Unknown baseline. Presented with elevated creatinine At 2.8. Received adequate IV fluids. Renal ultrasound 04/26/2022 with medical renal disease no hydronephrosis. Bladder wall thickening may be secondary to Idris incomplete distension or cystitis in the appropriate clinical settings. Urine lytes not reflective of prerenal picture. CPK normal. creatinine continues to improve down to 1.9 today. For extremity mid edema noted. Will give a dose of Lasix today. Resume apixaban as well. Check upper extremity Doppler to rule out DVT. # hypercalcemia: Likely related to hypovolemia. This has resolved with IV hydration. This is resolved. # hypernatremia will increase water flushes through PEG tube # UTI: Urine culture with ESBL E coli. On imipenem. Continue imipenem. # anemia: Hemoglobin dropped to 6.1. Received 1 unit of packed red blood cell. Recheck and monitor. No signs of bleeding. CT abdomen pelvis with no evidence of bled. vitamin B12 folic acid haptoglobin LDH iron panel . Ferritin is 312 iron profile suggestive of anemia chronic disease likely related to underlying chronic kidney disease. B12 folic acid is normal. LDH is high as 247. TSH is normal anemia is macrocytic. Haptoglobin is pending H&H is stable. Will resume apixaban. # DVT prophylaxis: Eliquis on hold due to anemia of 6.1 on 04/27. Resume Eliquis. # stress ulcer prophylaxis PPI # nutrition tube feed # code status full code # history of stroke /dementia # chronic respiratory failure on 2 L oxygen due to COPD acute exacerbation on 04/27/2022 with hypercarbia on ABG. Placed on high-flow oxygen which has been tapered of now. Subjective Date/time seen: 04/30/22 17:22 Interval history: No overnight events. Upper extremity is swollen. Discussed the nursing staff. Getting tube feeds and tolerating well. Accu-Cheks monitored. Blood pressure stable. Patient nonverbal. Review of
[2022-04-30 18:20] LABS: Glucose Point of Care 216 mg/dl (65-105)
[2022-04-30 20:24] LABS: Glucose Point of Care 205 mg/dl (65-105)
[2022-04-30] MEDS: APIXABAN 5 MG TABLET FEED TUBE (21:06)
[2022-04-30] MEDS: INSULIN GLARGINE (*BKC) 100 UNITS/ML 18 UNITS SUB-Q (21:09)
[2022-05-01] VITALS (13 sets, daily range): BP systolic 138–184; BP diastolic 46–95; PULSE 64–87; RESP 18–20; TEMP 36–36.8; O2SAT 93–98
[2022-05-01] MEDS: CARBIDOPA/LEVODOPA 12.5/50 MG TABLET 1 TABLET FEED TUBE ×4 (00:41→17:54)
[2022-05-01 01:01] LABS: Glucose Point of Care 199 mg/dl (65-105)
[2022-05-01] MEDS: cloNIDine HCL 0.1 MG TABLET 0.3 MG FEED TUBE ×3 (05:52→22:01)
[2022-05-01] MEDS: hydrALAZINE HCL 50 MG TABLET PO ×3 (05:52→22:01)
[2022-05-01] MEDS: CENTRAL LINE FLUSH 10 ML IV PUSH ×3 (05:53→22:02)
[2022-05-01] MEDS: INSULIN ASPART (*BKC) 100 UNITS/ML SUB-Q ×3 (05:56→18:11)
[2022-05-01 06:25] LABS: Glucose Point of Care 218 mg/dl (65-105)
[2022-05-01] MEDS: INSULIN GLARGINE (*BKC) 100 UNITS/ML 18 UNITS SUB-Q (08:22)
[2022-05-01] MEDS: APIXABAN 5 MG TABLET FEED TUBE ×2 (08:32→22:01)
[2022-05-01] MEDS: PANTOPRAZOLE SODIUM IV 40 MG VIAL IV PUSH ×2 (08:32→22:01)
[2022-05-01] MEDS: carvediloL 6.25 MG TABLET FEED TUBE ×2 (08:32→22:01)
[2022-05-01] MEDS: FLUTICASONE PROPIONATE 0.05% NA SPR 16 GM BTL (*BKC) 1 SPRAY NASAL ×2 (08:32→22:00)
[2022-05-01] MEDS: BENZTROPINE MESYLATE 1 MG TABLET FEED TUBE ×2 (08:32→17:53)
[2022-05-01] MEDS: SILVERGEL (ELTA) 45 ML 1 APPLIC TOPICAL (08:33)
[2022-05-01] MEDS: EUCERIN CREAM 120 GM JAR 1 APPLIC TOPICAL (08:33)
[2022-05-01 12:00] LABS: Glucose Point of Care 240 mg/dl (65-105)
[2022-05-01 12:25] LABS: Hematocrit 26.5 % (37.0-47.0); Hemoglobin 8.2 g/dL (12.0-15.0); Mean Corpuscular HGB Conc 30.9 g/dl (32-36); Mean Corpuscular Hemoglobin 30.6 pg (26-34); Mean Corpuscular Volume 98.9 fl (80-100); Mean Platelet Volume 11.9 fl (7.4-10.4); Platelet Count Result 177 k/mm3 (150-375); Red Blood Count 2.68 M/mm3 (4.2-5.4); White Blood Count 9.7 K/mm3 (4.5-10.0)
[2022-05-01 12:42] LABS: Alanine Aminotransferase 13 U/L (6-35); Albumin Level 3.5 g/dL (3.5-5.1); Alkaline Phosphatase 116 U/L (38-126); Anion Gap 6 mmol/L (8-16); Aspartate Amino Transferase 26 U/L (14-36); Bilirubin,Total 0.4 mg/dL (0.2-1.3); Blood Urea Nitrogen 73 mg/dL (7-17); Calcium 9.7 mg/dL (8.4-10.2); Carbon Dioxide 30 mmol/L (22-30); Chloride 108 mmol/L (98-107); Estimated CRCL calculation 23 ml/min; Estimated Glomerular Filt Rate 30; Glucose 252 mg/dL (65-110); Magnesium 2.3 mg/dL (1.6-2.3); Sodium 144 mmol/L (137-145)
--- NOTE | 2022-05-01 14:49 | PM.IMPN ---
Progress Note: A&P Assessment and Plan (1) Hypertensive urgency: Code(s): I16.0 - Hypertensive urgency Status: Acute (2) Dislodged gastrostomy tube: Code(s): T85.528A - Displacement of other gastrointestinal prosthetic devices, implants and grafts, initial encounter Status: Acute (3) Type 2 diabetes mellitus: Code(s): E11.9 - Type 2 diabetes mellitus without complications Status: Acute (4) Paroxysmal atrial fibrillation: Code(s): I48.0 - Paroxysmal atrial fibrillation Status: Acute (5) Chronic obstructive pulmonary disease: Code(s): J44.9 - Chronic obstructive pulmonary disease, unspecified Status: Acute (6) Renal failure: Code(s): N19 - Unspecified kidney failure Status: Acute (7) Hypercalcemia: Code(s): E83.52 - Hypercalcemia Status: Acute (8) Urinary tract infection: Code(s): N39.0 - Urinary tract infection, site not specified Status: Acute (9) Anemia: Code(s): D64.9 - Anemia, unspecified Status: Acute Plan # hyperensive urgency: resovled. History of resistant hypertension on multiple medications. Patient receiving p.o. medication due to lack up p.o. access due to dislodgement of PEG tube. Was started on nicardipine infusion to get systolic between 170-180 on admission. Now back to oral medication. Echo with normal EF grade 1 diastolic dysfunction: Mild TR. Blood pressure well controlled # dislodgement of G-tube: New G tube placed by GI 04/26/2022 # nonverbal at baseline unable to provide any history. [facility] resident # type 2 diabetes mellitus: Accu-Cheks and [facility]SI [facility] Le[facility] . Resumed Levemir and NovoLog. Accu-Cheks trend reviewed. Back to home doses change SSI to high-dose # abnormal chest x-ray opacities patchy present. On imipenem which will be continued. Unclear if this is pneumonia or congestive changes. # paroxysmal atrial fibrillation: Currently in sinus rhythm. On apixaban at home which is on hold due to anemia #COPD: P.r.n. bronchodilators not in exacerbation #renal insufficiency: Unknown baseline. Presented with elevated creatinine At 2.8. Received adequate IV fluids. Renal ultrasound 04/26/2022 with medical renal disease no hydronephrosis. Bladder wall thickening may be secondary to Idris incomplete distension or cystitis in the appropriate clinical settings. Urine lytes not reflective of prerenal picture. CPK normal. creatinine continues to improve down to 1.9 today. For extremity mid edema noted. Received an IV Lasix dose 04/30/2022. Resume apixaban as well. Check upper extremity Doppler to rule out DVT which came back negative. Resume apixaban # hypercalcemia: Likely related to hypovolemia. This has resolved with IV hydration. This is resolved. # hypernatremia will increase water flushes through PEG tube. Hypernatremia has resolved today # UTI: Urine culture with ESBL E coli. On imipenem. Continue imipenem. # anemia: Hemoglobin dropped to 6.1. Received 1 unit of packed red blood cell. Recheck and monitor. No signs of bleeding. CT abdomen pelvis with no evidence of bled. vitamin B12 folic acid haptoglobin LDH iron panel . Ferritin is 312 iron profile suggestive of anemia chronic disease likely related to underlying chronic kidney disease. B12 folic acid is normal. LDH is high as 247. TSH is normal anemia is macrocytic. Haptoglobin is pending H&H is stable. Will resume apixaban. # DVT prophylaxis: Eliquis on hold due to anemia of 6.1 on 04/27. Resume Eliquis. # stress ulcer prophylaxis PPI # nutrition tube feed # code status full code # history of stroke /dementia # chronic respiratory failure on 2 L oxygen due to COPD acute exacerbation on 04/27/2022 with hypercarbia on ABG. Placed on high-flow oxygen which has been tapered of now. Subjective Date/time seen: 05/01/22 14:49 Interval history: No overnight
[2022-05-01 18:19] LABS: Glucose Point of Care 217 mg/dl (65-105)
[2022-05-01 20:09] LABS: Glucose Point of Care 193 mg/dl (65-105)
[2022-05-01] MEDS: INSULIN GLARGINE (*BKC) 100 UNITS/ML 22 UNITS SUB-Q (22:17)
[2022-05-02] VITALS (9 sets, daily range): BP systolic 146–179; BP diastolic 49–82; PULSE 64–98; RESP 16–20; TEMP 36.3–37.2; O2SAT 97–100
[2022-05-02 00:21] LABS: Glucose Point of Care 215 mg/dl (65-105)
[2022-05-02] MEDS: CARBIDOPA/LEVODOPA 12.5/50 MG TABLET 1 TABLET FEED TUBE ×5 (00:21→23:13)
[2022-05-02] MEDS: INSULIN ASPART (*BKC) 100 UNITS/ML SUB-Q (00:32)
[2022-05-02 05:47] LABS: Basophils Percent Auto 0.1 % (0.2-1.2); Eosinophils Absolute Auto 0.3 K/mm3 (0-0.3); Eosinophils Percent Auto 3.6 % (0-4.4); Hematocrit 24.8 % (37.0-47.0); Hemoglobin 7.5 g/dL (12.0-15.0); Immature Granulocyte Percent A 1.3 % (0-0.5); Lymphocytes Percent Auto 17.8 % (18.3-44.2); Mean Corpuscular HGB Conc 30.2 g/dl (32-36); Mean Corpuscular Hemoglobin 29.9 pg (26-34); Mean Corpuscular Volume 98.8 fl (80-100); Mean Platelet Volume 12.4 fl (7.4-10.4); Monocytes Absolute Auto 0.4 K/mm3 (0.1-0.6); Monocytes Percent Auto 5.6 % (2.6-8.5); Neutrophils Absolute Auto 5.7 K/mm3 (1.3-6.7); Neutrophils Percent Auto 71.6 % (45.5-73.1); Platelet Count Result 172 k/mm3 (150-375); Red Blood Count 2.51 M/mm3 (4.2-5.4); Red Cell Distribution Width 16.6 % (11.5-14.5); White Blood Count 7.9 K/mm3 (4.5-10.0)
[2022-05-02 05:56] LABS: Alanine Aminotransferase 11 U/L (6-35); Albumin Level 3.2 g/dL (3.5-5.1); Alkaline Phosphatase 102 U/L (38-126); Anion Gap 6 mmol/L (8-16); Aspartate Amino Transferase 22 U/L (14-36); Bilirubin,Total 0.5 mg/dL (0.2-1.3); Blood Urea Nitrogen 73 mg/dL (7-17); Calcium 9.3 mg/dL (8.4-10.2); Carbon Dioxide 27 mmol/L (22-30); Chloride 113 mmol/L (98-107); Estimated CRCL calculation 25 ml/min; Estimated Glomerular Filt Rate 33; Glucose 183 mg/dL (65-110); Magnesium 2.4 mg/dL (1.6-2.3); Potassium 3.9 mmol/L (3.4-5.0); Sodium 146 mmol/L (137-145)
[2022-05-02 06:09] LABS: Glucose Point of Care 163 mg/dl (65-105)
[2022-05-02] MEDS: hydrALAZINE HCL 50 MG TABLET PO ×3 (06:09→20:59)
[2022-05-02] MEDS: CENTRAL LINE FLUSH 10 ML IV PUSH ×3 (06:09→20:59)
[2022-05-02] MEDS: cloNIDine HCL 0.1 MG TABLET 0.3 MG FEED TUBE ×3 (06:09→20:59)
[2022-05-02 07:46] LABS: Glucose Point of Care 172 mg/dl (65-105)
[2022-05-02] MEDS: carvediloL 6.25 MG TABLET FEED TUBE ×2 (08:08→20:59)
[2022-05-02] MEDS: BENZTROPINE MESYLATE 1 MG TABLET FEED TUBE ×2 (08:08→17:44)
[2022-05-02] MEDS: APIXABAN 5 MG TABLET FEED TUBE ×2 (08:08→20:59)
[2022-05-02] MEDS: PANTOPRAZOLE SODIUM IV 40 MG VIAL IV PUSH ×2 (08:09→20:58)
[2022-05-02] MEDS: FLUTICASONE PROPIONATE 0.05% NA SPR 16 GM BTL (*BKC) 1 SPRAY NASAL ×2 (08:09→20:58)
[2022-05-02] MEDS: INSULIN GLARGINE (*BKC) 100 UNITS/ML 22 UNITS SUB-Q ×2 (08:14→20:58)
--- NOTE | 2022-05-02 10:39 | PM.IMPN ---
Progress Note: A&P Assessment and Plan (1) Hypertensive urgency: Code(s): I16.0 - Hypertensive urgency Status: Acute (2) Dislodged gastrostomy tube: Code(s): T85.528A - Displacement of other gastrointestinal prosthetic devices, implants and grafts, initial encounter Status: Acute (3) Type 2 diabetes mellitus: Code(s): E11.9 - Type 2 diabetes mellitus without complications Status: Acute (4) Paroxysmal atrial fibrillation: Code(s): I48.0 - Paroxysmal atrial fibrillation Status: Acute (5) Chronic obstructive pulmonary disease: Code(s): J44.9 - Chronic obstructive pulmonary disease, unspecified Status: Acute (6) Renal failure: Code(s): N19 - Unspecified kidney failure Status: Acute (7) Hypercalcemia: Code(s): E83.52 - Hypercalcemia Status: Acute (8) Urinary tract infection: Code(s): N39.0 - Urinary tract infection, site not specified Status: Acute (9) Anemia: Code(s): D64.9 - Anemia, unspecified Status: Acute Plan # hyperensive urgency: resovled. History of resistant hypertension on multiple medications. Patient receiving p.o. medication due to lack up p.o. access due to dislodgement of PEG tube. Was started on nicardipine infusion to get systolic between 170-180 on admission. Now back to oral medication. Echo with normal EF grade 1 diastolic dysfunction: Mild TR. Blood pressure well controlled # dislodgement of G-tube: New G tube placed by GI 04/26/2022 # nonverbal at baseline unable to provide any history. long term resident # type 2 diabetes mellitus: Accu-Cheks and SSI on Levemir and NPH at [facility] . Resumed Levemir and NovoLog. Accu-Cheks trend reviewed. Back to home doses change SSI to high-dose # abnormal chest x-ray opacities patchy present. On imipenem which will be continued. Unclear if this is pneumonia or congestive changes. # paroxysmal atrial fibrillation: Currently in sinus rhythm. On apixaban at home which is on hold due to anemia #COPD: P.r.n. bronchodilators not in exacerbation #renal insufficiency: Unknown baseline. Presented with elevated creatinine At 2.8. Received adequate IV fluids. Renal ultrasound 04/26/2022 with medical renal disease no hydronephrosis. Bladder wall thickening may be secondary to Idris incomplete distension or cystitis in the appropriate clinical settings. Urine lytes not reflective of prerenal picture. CPK normal. creatinine continues to improve down to 1.9 today. For extremity mid edema noted. Received an IV Lasix dose 04/30/2022. Resume apixaban as well. Check upper extremity Doppler to rule out DVT which came back negative. Resume apixaban # hypercalcemia: Likely related to hypovolemia. This has resolved with IV hydration. This is resolved. # hypernatremia will increase water flushes through PEG tube. Hypernatremia has resolved today # UTI: Urine culture with ESBL E coli. On imipenem. Continue imipenem.D5 # anemia: Hemoglobin dropped to 6.1. Received 1 unit of packed red blood cell. Recheck and monitor. No signs of bleeding. CT abdomen pelvis with no evidence of bled. vitamin B12 folic acid haptoglobin LDH iron panel . Ferritin is 312 iron profile suggestive of anemia chronic disease likely related to underlying chronic kidney disease. B12 folic acid is normal. LDH is high as 247. TSH is normal anemia is macrocytic. Haptoglobin is pending H&H is stable. Will resume apixaban. # DVT prophylaxis: Eliquis on hold due to anemia of 6.1 on 04/27. Resume Eliquis. # stress ulcer prophylaxis PPI # nutrition tube feed # code status full code # history of stroke /dementia # chronic respiratory failure on 2 L oxygen due to COPD acute exacerbation on 04/27/2022 with hypercarbia on ABG. Placed on high-flow oxygen which has been tapered of now. Subjective Date/time seen: 05/02/22 10:39 Interval history: no overni
[2022-05-02 12:13] LABS: Glucose Point of Care 198 mg/dl (65-105)
[2022-05-02] MEDS: EUCERIN CREAM 120 GM JAR 1 APPLIC TOPICAL (12:22)
[2022-05-02] MEDS: SILVERGEL (ELTA) 45 ML 1 APPLIC TOPICAL (12:22)
[2022-05-02 17:51] LABS: Glucose Point of Care 196 mg/dl (65-105)
[2022-05-02 23:21] LABS: Glucose Point of Care 191 mg/dl (65-105)
[2022-05-03] VITALS (8 sets, daily range): BP systolic 155–184; BP diastolic 58–71; PULSE 65–80; RESP 16–18; TEMP 36.1–37; O2SAT 94–100
[2022-05-03] MEDS: cloNIDine HCL 0.1 MG TABLET 0.3 MG FEED TUBE ×3 (05:38→21:02)
[2022-05-03] MEDS: hydrALAZINE HCL 50 MG TABLET PO ×2 (05:38→14:26)
[2022-05-03] MEDS: CARBIDOPA/LEVODOPA 12.5/50 MG TABLET 1 TABLET FEED TUBE ×4 (05:38→23:26)
[2022-05-03 05:41] LABS: Glucose Point of Care 157 mg/dl (65-105)
[2022-05-03 05:45] LABS: Basophils Percent Auto 0.2 % (0.2-1.2); Eosinophils Absolute Auto 0.3 K/mm3 (0-0.3); Eosinophils Percent Auto 3.7 % (0-4.4); Hematocrit 23.9 % (37.0-47.0); Hemoglobin 7.2 g/dL (12.0-15.0); Immature Granulocyte Absolute 0.11 K/mm3 (0.00-0.031); Immature Granulocyte Percent A 1.3 % (0-0.5); Lymphocytes Absolute Auto 1.47 K/mm3 (0.9-3.2); Lymphocytes Percent Auto 16.9 % (18.3-44.2); Mean Corpuscular HGB Conc 30.1 g/dl (32-36); Mean Corpuscular Hemoglobin 29.1 pg (26-34); Mean Corpuscular Volume 96.8 fl (80-100); Mean Platelet Volume 12.1 fl (7.4-10.4); Monocytes Absolute Auto 0.5 K/mm3 (0.1-0.6); Monocytes Percent Auto 6.1 % (2.6-8.5); Neutrophils Absolute Auto 6.3 K/mm3 (1.3-6.7); Neutrophils Percent Auto 71.8 % (45.5-73.1); Platelet Count Result 184 k/mm3 (150-375); Red Blood Count 2.47 M/mm3 (4.2-5.4); Red Cell Distribution Width 16.2 % (11.5-14.5); White Blood Count 8.7 K/mm3 (4.5-10.0)
[2022-05-03 05:46] LABS: Alanine Aminotransferase 13 U/L (6-35); Albumin Level 3.1 g/dL (3.5-5.1); Alkaline Phosphatase 102 U/L (38-126); Anion Gap 6 mmol/L (8-16); Aspartate Amino Transferase 21 U/L (14-36); Bilirubin,Total 0.3 mg/dL (0.2-1.3); Blood Urea Nitrogen 65 mg/dL (7-17); Calcium 9.2 mg/dL (8.4-10.2); Carbon Dioxide 26 mmol/L (22-30); Chloride 112 mmol/L (98-107); Estimated CRCL calculation 23 ml/min; Estimated Glomerular Filt Rate 31; Glucose 161 mg/dL (65-110); Magnesium 2.4 mg/dL (1.6-2.3); Sodium 144 mmol/L (137-145)
[2022-05-03] MEDS: CENTRAL LINE FLUSH 10 ML IV PUSH ×3 (05:47→21:02)
[2022-05-03] MEDS: EUCERIN CREAM 120 GM JAR 1 APPLIC TOPICAL (09:33)
[2022-05-03] MEDS: BENZTROPINE MESYLATE 1 MG TABLET FEED TUBE ×2 (09:34→17:53)
[2022-05-03] MEDS: SILVERGEL (ELTA) 45 ML 1 APPLIC TOPICAL (09:34)
[2022-05-03] MEDS: APIXABAN 5 MG TABLET FEED TUBE ×2 (09:35→21:01)
[2022-05-03] MEDS: carvediloL 6.25 MG TABLET FEED TUBE ×2 (09:36→21:01)
[2022-05-03] MEDS: FLUTICASONE PROPIONATE 0.05% NA SPR 16 GM BTL (*BKC) 1 SPRAY NASAL ×2 (09:39→21:00)
[2022-05-03] MEDS: PANTOPRAZOLE SODIUM IV 40 MG VIAL IV PUSH ×2 (09:39→21:00)
[2022-05-03] MEDS: INSULIN GLARGINE (*BKC) 100 UNITS/ML 22 UNITS SUB-Q ×2 (09:39→20:59)
[2022-05-03 09:45] LABS: Glucose Point of Care 186 mg/dl (65-105)
[2022-05-03 12:39] LABS: Glucose Point of Care 210 mg/dl (65-105)
[2022-05-03] MEDS: INSULIN ASPART (*BKC) 100 UNITS/ML SUB-Q ×2 (13:18→23:31)
--- NOTE | 2022-05-03 15:04 | PM.IMPN ---
Progress Note: A&P Assessment and Plan (1) Hypertensive urgency: Code(s): I16.0 - Hypertensive urgency Status: Acute (2) Dislodged gastrostomy tube: Code(s): T85.528A - Displacement of other gastrointestinal prosthetic devices, implants and grafts, initial encounter Status: Acute (3) Type 2 diabetes mellitus: Code(s): E11.9 - Type 2 diabetes mellitus without complications Status: Acute (4) Paroxysmal atrial fibrillation: Code(s): I48.0 - Paroxysmal atrial fibrillation Status: Acute (5) Chronic obstructive pulmonary disease: Code(s): J44.9 - Chronic obstructive pulmonary disease, unspecified Status: Acute (6) Renal failure: Code(s): N19 - Unspecified kidney failure Status: Acute (7) Hypercalcemia: Code(s): E83.52 - Hypercalcemia Status: Acute (8) Urinary tract infection: Code(s): N39.0 - Urinary tract infection, site not specified Status: Acute (9) Anemia: Code(s): D64.9 - Anemia, unspecified Status: Acute Plan # hyperensive urgency: resovled. History of resistant hypertension on multiple medications. Patient receiving p.o. medication due to lack up p.o. access due to dislodgement of PEG tube. Was started on nicardipine infusion to get systolic between 170-180 on admission. Now back to oral medication. Echo with normal EF grade 1 diastolic dysfunction: Mild TR. Blood pressure well controlled Increase hydralazine to 75 mg q.8 hours prior to admission hydralazine dosing is 100 mg q.8 hours # dislodgement of G-tube: New G tube placed by GI 04/26/2022 # nonverbal at baseline unable to provide any history. [facility] resident # type 2 diabetes mellitus: Accu-Cheks and SSI [facility] Levemir [facility] NPH [facility] . Resumed Levemir and NovoLog. Accu-Cheks trend reviewed. Back to home doses change SSI to high-dose # abnormal chest x-ray opacities patchy present. On imipenem which will be continued. Unclear if this is pneumonia or congestive changes. # paroxysmal atrial fibrillation: Currently in sinus rhythm. On apixaban at home which is on hold due to anemia # COPD: P.r.n. bronchodilators not in exacerbation #renal insufficiency: Unknown baseline. Presented with elevated creatinine At 2.8. Received adequate IV fluids. Renal ultrasound 04/26/2022 with medical renal disease no hydronephrosis. Bladder wall thickening may be secondary to Idris incomplete distension or cystitis in the appropriate clinical settings. Urine lytes not reflective of prerenal picture. CPK normal. creatinine continues to improve down to 1.9 today. For extremity mid edema noted. Received an IV Lasix dose 04/30/2022. Resume apixaban as well. Check upper extremity Doppler to rule out DVT which came back negative. Resume apixaban # hypercalcemia: Likely related to hypovolemia. This has resolved with IV hydration. This is resolved. # hypernatremia will increase water flushes through PEG tube. Hypernatremia has resolved today # UTI: Urine culture with ESBL E coli. On imipenem. Continue imipenem.D6 # anemia: Hemoglobin dropped to 6.1. Received 1 unit of packed red blood cell. Recheck and monitor. No signs of bleeding. CT abdomen pelvis with no evidence of bled. vitamin B12 folic acid haptoglobin LDH iron panel . Ferritin is 312 iron profile suggestive of anemia chronic disease likely related to underlying chronic kidney disease. B12 folic acid is normal. LDH is high as 247. TSH is normal anemia is macrocytic. Haptoglobin is pending H&H is stable. Will resume apixaban. # DVT prophylaxis: Eliquis on hold due to anemia of 6.1 on 04/27. Resume Eliquis. # stress ulcer prophylaxis PPI # nutrition tube feed # code status full code # history of stroke /dementia # chronic respiratory failure on 2 L oxygen due to COPD acute exacerbation on 04/27/2022 with hypercarbia on ABG. Placed on high-flow oxygen which has been
[2022-05-03 18:11] LABS: Glucose Point of Care 178 mg/dl (65-105)
[2022-05-03] MEDS: hydrALAZINE HCL 25 MG TABLET 75 MG PO (21:01)
[2022-05-03 22:32] LABS: Glucose Point of Care 202 mg/dl (65-105)
[2022-05-03 23:40] LABS: Glucose Point of Care 215 mg/dl (65-105)
[2022-05-04] VITALS (7 sets, daily range): BP systolic 141–173; BP diastolic 48–100; PULSE 65–88; RESP 18–24; TEMP 36.6–37.3; O2SAT 95–100
[2022-05-04] MEDS: CENTRAL LINE FLUSH 10 ML IV PUSH ×2 (05:18→14:23)
[2022-05-04] MEDS: hydrALAZINE HCL 25 MG TABLET 75 MG PO ×2 (05:18→14:22)
[2022-05-04] MEDS: CARBIDOPA/LEVODOPA 12.5/50 MG TABLET 1 TABLET FEED TUBE ×3 (05:18→18:11)
[2022-05-04] MEDS: cloNIDine HCL 0.1 MG TABLET 0.3 MG FEED TUBE ×2 (05:18→14:22)
[2022-05-04 05:22] LABS: Glucose Point of Care 177 mg/dl (65-105)
[2022-05-04] MEDS: INSULIN GLARGINE (*BKC) 100 UNITS/ML 22 UNITS SUB-Q (08:25)
[2022-05-04] MEDS: PANTOPRAZOLE SODIUM IV 40 MG VIAL IV PUSH (08:27)
[2022-05-04] MEDS: FLUTICASONE PROPIONATE 0.05% NA SPR 16 GM BTL (*BKC) 1 SPRAY NASAL (08:28)
[2022-05-04] MEDS: SILVERGEL (ELTA) 45 ML 1 APPLIC TOPICAL (08:28)
[2022-05-04] MEDS: carvediloL 6.25 MG TABLET FEED TUBE (08:28)
[2022-05-04] MEDS: APIXABAN 5 MG TABLET FEED TUBE (08:28)
[2022-05-04] MEDS: BENZTROPINE MESYLATE 1 MG TABLET FEED TUBE ×2 (08:28→18:11)
[2022-05-04] MEDS: EUCERIN CREAM 120 GM JAR 1 APPLIC TOPICAL (08:28)
--- NOTE | 2022-05-04 11:29 | PCNFU ---
Nutrition Follow-Up Complete: Inadequate energy intake related to NPO status as evidenced by need for full tube feeding. Goal: Meet estimated nutrition needs Patient is meeting current goal. No new goal. Pt current nutrition is Glucerna 1.2 at 65 ml/hr. Nutrition Recommendation: Carlo BID for wound healing. Last recorded weight is 86.5 kg. Bowel Motility:+Bm reported 1/3 Labs Reviewed:no labs to report Meds Noted:Eliquis, Novolog, protonix, lantus Skin:Stage III pressure injury- Coccyx Additional Notes: Spoke with nursing today. Patient is tolerating tube feedings of Glucerna 1.2 at 65 ml/hr. Flush 200 ml q 6 hours. MD orders for Carlo BID flush for wound healing providing an additional 90 kcals and 2.5 gms protein. Agree with diet orders. Monitoring tolerance, intakes, weights, labs, plan of care Follow up Tuesdays and Fridays
[2022-05-04 11:49] LABS: Basophils Percent Auto 0.4 % (0.2-1.2); Eosinophils Absolute Auto 0.4 K/mm3 (0-0.3); Eosinophils Percent Auto 3.7 % (0-4.4); Hematocrit 25.6 % (37.0-47.0); Hemoglobin 7.7 g/dL (12.0-15.0); Immature Granulocyte Absolute 0.11 K/mm3 (0.00-0.031); Immature Granulocyte Percent A 1.1 % (0-0.5); Lymphocytes Absolute Auto 1.52 K/mm3 (0.9-3.2); Lymphocytes Percent Auto 15.5 % (18.3-44.2); Mean Corpuscular HGB Conc 30.1 g/dl (32-36); Mean Corpuscular Hemoglobin 29.3 pg (26-34); Mean Corpuscular Volume 97.3 fl (80-100); Mean Platelet Volume 12.3 fl (7.4-10.4); Monocytes Absolute Auto 0.6 K/mm3 (0.1-0.6); Monocytes Percent Auto 6.2 % (2.6-8.5); Neutrophils Absolute Auto 7.2 K/mm3 (1.3-6.7); Neutrophils Percent Auto 73.1 % (45.5-73.1); Platelet Count Result 213 k/mm3 (150-375); Red Blood Count 2.63 M/mm3 (4.2-5.4); Red Cell Distribution Width 16.4 % (11.5-14.5); White Blood Count 9.8 K/mm3 (4.5-10.0)
[2022-05-04 11:58] LABS: Alanine Aminotransferase 13 U/L (6-35); Albumin Level 3.3 g/dL (3.5-5.1); Alkaline Phosphatase 112 U/L (38-126); Anion Gap 6 mmol/L (8-16); Aspartate Amino Transferase 26 U/L (14-36); Bilirubin,Total 0.3 mg/dL (0.2-1.3); Blood Urea Nitrogen 67 mg/dL (7-17); Calcium 9.5 mg/dL (8.4-10.2); Carbon Dioxide 26 mmol/L (22-30); Chloride 116 mmol/L (98-107); Estimated CRCL calculation 23 ml/min; Estimated Glomerular Filt Rate 31; Glucose 219 mg/dL (65-110); Magnesium 2.6 mg/dL (1.6-2.3); Potassium 4.4 mmol/L (3.4-5.0); Sodium 148 mmol/L (137-145)
[2022-05-04 12:22] LABS: Glucose Point of Care 177 mg/dl (65-105)
[2022-05-04 15:59] LABS: Sodium 143 mmol/L (137-145)
--- NOTE | 2022-05-04 17:19 | PM.IMPN ---
Progress Note: A&P Assessment and Plan (1) Hypertensive urgency: Code(s): I16.0 - Hypertensive urgency Status: Acute (2) Dislodged gastrostomy tube: Code(s): T85.528A - Displacement of other gastrointestinal prosthetic devices, implants and grafts, initial encounter Status: Acute (3) Type 2 diabetes mellitus: Code(s): E11.9 - Type 2 diabetes mellitus without complications Status: Acute (4) Paroxysmal atrial fibrillation: Code(s): I48.0 - Paroxysmal atrial fibrillation Status: Acute (5) Chronic obstructive pulmonary disease: Code(s): J44.9 - Chronic obstructive pulmonary disease, unspecified Status: Acute (6) Renal failure: Code(s): N19 - Unspecified kidney failure Status: Acute (7) Hypercalcemia: Code(s): E83.52 - Hypercalcemia Status: Acute (8) Urinary tract infection: Code(s): N39.0 - Urinary tract infection, site not specified Status: Acute (9) Anemia: Code(s): D64.9 - Anemia, unspecified Status: Acute Plan # hyperensive urgency: resovled. History of resistant hypertension on multiple medications. Patient receiving p.o. medication due to lack up p.o. access due to dislodgement of PEG tube. Was started on nicardipine infusion to get systolic between 170-180 on admission. Now back to oral medication. Echo with normal EF grade 1 diastolic dysfunction: Mild TR. Blood pressure well controlled Increase hydralazine to 100 mg q.8 hours # dislodgement of G-tube: New G tube placed by GI 04/26/2022 # nonverbal at baseline unable to provide any history. [facility] resident # type 2 diabetes mellitus: Accu-Cheks and SSI on Levemir and NPH at [facility] . Resumed Levemir and NovoLog. Accu-Cheks trend reviewed. Back to home doses change SSI to high-dose # abnormal chest x-ray opacities patchy present. On imipenem which will be continued. Unclear if this is pneumonia or congestive changes. # paroxysmal atrial fibrillation: Currently in sinus rhythm. On apixaban at home which is on hold due to anemia # COPD: P.r.n. bronchodilators not in exacerbation #renal insufficiency: Unknown baseline. Presented with elevated creatinine At 2.8. Received adequate IV fluids. Renal ultrasound 04/26/2022 with medical renal disease no hydronephrosis. Bladder wall thickening may be secondary to Idris incomplete distension or cystitis in the appropriate clinical settings. Urine lytes not reflective of prerenal picture. CPK normal. creatinine continues to improve down to 1.9 today. For extremity mid edema noted. Received an IV Lasix dose 04/30/2022. Resume apixaban as well. Check upper extremity Doppler to rule out DVT which came back negative. Resume apixaban # hypercalcemia: Likely related to hypovolemia. This has resolved with IV hydration. This is resolved. # hypernatremia will increase water flushes through PEG tube. Hypernatremia still persistent on and off. Could not free water flushes 200 cc every 6 hours # UTI: Urine culture with ESBL E coli. On imipenem. Continue imipenem.D7. Concludes today. # anemia: Hemoglobin dropped to 6.1. Received 1 unit of packed red blood cell. Recheck and monitor. No signs of bleeding. CT abdomen pelvis with no evidence of bled. vitamin B12 folic acid haptoglobin LDH iron panel . Ferritin is 312 iron profile suggestive of anemia chronic disease likely related to underlying chronic kidney disease. B12 folic acid is normal. LDH is high as 247. TSH is normal anemia is macrocytic. Haptoglobin is pending H&H is stable. Will resume apixaban. # DVT prophylaxis: Eliquis on hold due to anemia of 6.1 on 04/27. Resume Eliquis. # stress ulcer prophylaxis PPI # nutrition tube feed # code status full code # history of stroke /dementia # chronic respiratory failure on 2 L oxygen due to COPD acute exacerbation on 04/27/2022 with hypercarbia on ABG. Placed on high-flow
--- NOTE | 2022-05-04 17:38 | PM.DS ---
DS: Admitting Diagnosis Discharge Date 05/04/2022 Admitting Diagnosis G-tube dislodgement DS: Discharge Diagnosis Discharge Diagnosis (1) Hypertensive urgency: Code(s): I16.0 - Hypertensive urgency Status: Acute (2) Dislodged gastrostomy tube: Code(s): T85.528A - Displacement of other gastrointestinal prosthetic devices, implants and grafts, initial encounter Status: Acute (3) Type 2 diabetes mellitus: Code(s): E11.9 - Type 2 diabetes mellitus without complications Status: Acute (4) Paroxysmal atrial fibrillation: Code(s): I48.0 - Paroxysmal atrial fibrillation Status: Acute (5) Chronic obstructive pulmonary disease: Code(s): J44.9 - Chronic obstructive pulmonary disease, unspecified Status: Acute (6) Renal failure: Code(s): N19 - Unspecified kidney failure Status: Acute (7) Hypercalcemia: Code(s): E83.52 - Hypercalcemia Status: Acute (8) Urinary tract infection: Code(s): N39.0 - Urinary tract infection, site not specified Status: Acute (9) Anemia: Code(s): D64.9 - Anemia, unspecified Status: Acute DS: Summary Hospital Course Hospital Course: # hyperensive urgency: resovled. History of resistant hypertension on multiple medications.? Patient was not receiving medication due to lack up p.o. access due to dislodgement of PEG tube.? Was started on nicardipine infusion to get systolic between 170-180 on admission.? Now back to oral medication. Echo with normal EF? grade 1 diastolic dysfunction:? Mild TR.? Blood pressure improved Back on her usual home medication which includes Coreg and hydralazine to 100 mg q.8 hours # dislodgement of G-tube:? New G tube placed by GI 04/26/2022. Tube feed was restarted and functioning well # nonverbal at baseline unable to provide any history.? intermediate resident # type 2 diabetes mellitus:? Accu-Cheks and SSI on Levemir and NPH at? long term .? Resumed Levemir and? NovoLog.? Accu-Cheks trend reviewed.? Back to home doses change SSI to high-dose # abnormal chest x-ray opacities patchy present.? On imipenem which will be continued.? Unclear if this is pneumonia or congestive changes. Complete the course of imipenem 7 days course # paroxysmal atrial fibrillation:? Currently in sinus rhythm.? On apixaban at home which is on hold due to anemia which was resumed with stable blood count. No evidence of bleeding ? # COPD: P.r.n. bronchodilators not in exacerbation ? #renal insufficiency: Unknown baseline.? Presented with elevated creatinine? At 2.8.? Received adequate IV fluids.? Renal ultrasound 04/26/2022 with medical renal disease no hydronephrosis.? Bladder wall thickening may be secondary to incomplete distension or cystitis in the appropriate clinical settings.? Urine lytes not reflective of prerenal picture.? CPK normal. creatinine continues to improve down to 1.9.? For extremity mid edema noted.? Received an IV Lasix dose 04/30/2022.? Resume apixaban as well.? Check upper extremity Doppler to rule out DVT which came back negative.? Resume apixaban. Renal function stabilized at 1.81.9 probably her baseline level # hypercalcemia:? Likely related to hypovolemia.? This has resolved with IV hydration.? This is resolved. # hypernatremia will increase water flushes through PEG tube.? Hypernatremia still persistent on and off.? Could not free water flushes 200 cc every 6 hours # UTI: Urine culture with ESBL E coli.? On imipenem.? Continue imipenem.D7.? Completed the course of treatment # anemia:? Hemoglobin dropped to 6.1.? Received 1 unit of packed red blood cell.? Recheck and monitor.? No signs of bleeding.? CT abdomen pelvis with no evidence of bled. vitamin B12 folic acid haptoglobin LDH iron panel .? Ferritin is 312 iron profile suggestive of anemia chronic disease likely related to underlying chronic kidney disease.? B12 folic acid is normal.? LDH is high as 247.? TSH is normal ane
[2022-05-04 18:16] LABS: Glucose Point of Care 227 mg/dl (65-105)
[2022-05-04] MEDS: INSULIN ASPART (*BKC) 100 UNITS/ML SUB-Q (18:16)
[2022-05-04 19:58] LABS: EDCOVIDSCREEN Negative (Negative)
== END 2022-05-04 20:40 | DRG 920 ==
LOC: ANHED 17:59 → ANH3MEDSUR 20:50 → ANH2MED 23:18 → ANHICU 04-26 11:35 → ANH2MED 04-28 15:17
PROVIDERS: Internal Medicine; Internal Medicine Critical Care Medicine; Internal Medicine Gastroenterology; Physician Assistant; Admitting Provider Internal Medicine; Emergency Provider Emergency Medicine; PCP Family Medicine; Visit Provider Internal Medicine
PROC: 0DH63UZ Insertion of Feeding Device into Stomach, Percutaneous Approach (ICD-10-PCS; CPT 43246; principal; 2022-04-26 07:00)
DX: T85.528A Displacement of other gastrointestinal prosthetic devices, implants and grafts, initial encounter (principal); E87.0 Hyperosmolality and hypernatremia; N39.0 Urinary tract infection, site not specified; J96.12 Chronic respiratory failure with hypercapnia; R47.01 Aphasia; Z16.12 Extended spectrum beta lactamase (ESBL) resistance; I16.0 Hypertensive urgency; I48.0 Paroxysmal atrial fibrillation; E11.9 Type 2 diabetes mellitus without complications; E83.52 Hypercalcemia; J44.9 Chronic obstructive pulmonary disease, unspecified; F03.90 Unspecified dementia, unspecified severity, without behavioral disturbance, psychotic disturbance, mood disturbance, and anxiety; Z20.822 Contact with and (suspected) exposure to COVID-19; Z99.81 Dependence on supplemental oxygen; D53.9 Nutritional anemia, unspecified; N28.9 Disorder of kidney and ureter, unspecified; E86.0 Dehydration; I10 Essential (primary) hypertension; B96.20 Unspecified Escherichia coli [E. coli] as the cause of diseases classified elsewhere; Z79.899 Other long term (current) drug therapy; Z79.4 Long term (current) use of insulin; Z86.73 Personal history of transient ischemic attack (TIA), and cerebral infarction without residual deficits
CPT/HCPCS: 36415; 36430; 36569; 36600; 43246; 70450; 71045; 74018; 74176; 76775; 80053; 81001; 82375; 82550; 82570; 82607; 82728; 82746; 82805; 82948; 83010; 83036; 83050; 83540; 83550; 83605; 83615; 83735; 84100; 84295; 84300; 84443; 85014; 85018; 85025; 85027; 85046; 85610; 85730; 86850; 86900; 86901; 86923; 87077; 87086; 87088; 87186; 87426; 87636; 93970; 94640; 96365; 96366; 99285; A9270; C1751; C8929; C9113; C9803; G0378; J0360; J0696; J0743; J1650; J1815; J1940; J2405; J2704; J3010; J7050; J7120; P9016; Q9957

== ENCOUNTER 2022-05-12 14:14 | Inpatient (IN) | payer MEDICARE, MEDICAID, SELFPAY ==
[2022-05-12] VITALS (12 sets, daily range): BP systolic 124–143; BP diastolic 51–67; PULSE 66–74; RESP 14–20; TEMP 36.1–36.6; O2SAT 100; BMI 32.1
--- NOTE | ~2022-05-12 | CT_ITS ---
EXAMINATION: CT abdomen pelvis wo con DATE: 05/16/2022 15:15 INDICATION: Abdominal distention TECHNIQUE: Computed tomography (CT) of the abdomen and pelvis was performed without intravenous contr ast. Automated exposure control and iterative reconstruction technique were employed. The dose-length product was 1315.20 mGy-cm. COMPARISON: 04/27/2022 FINDINGS: Persistent consolidation with associated volume loss in the bilateral lower lobes which would favor a telectasis over pneumonia. Prior right middle lobe more patchy opacities have resolved. Increasing mi ld discoid atelectasis in the lingula. Very small left pleural effusion. Mild cardiomegaly. Atheroscl erotic coronary artery calcifications, aortic valve and mitral annular calcifications. New small darnell cardial effusion. Again seen is a percutaneous gastrostomy tube in expected position with bulb within the gastric antrum. Cholecystectomy clips the gallbladder fossa. Increased density of the liver. A f ew splenic calcifications consistent with old granulomatous disease. Pancreas, bilateral adrenal glan ds are normal. Bilateral renal cysts the largest on the right measuring 3.3 cm with minimal dependent curvilinear calcification which could be either mural calcific location or milk of calcium. Liquid s tool throughout the colon consistent with nonspecific diarrhea. No bowel obstruction. Normal appendix . Mittal catheter within the bladder which demonstrates diffuse wall thickening in a few small diverti cula along the anterior wall which suggests sequela chronic outlet obstruction although the wall thic kening could also be due to cystitis either acute or chronic. Chronic mild nonspecific presacral barber a. No free intraperitoneal gas or fluid. No pathologically enlarged abdominal or pelvic lymphadenopat hy. There are bridging osteophytes at multiple levels in the spine, consistent with diffuse idiopathi c skeletal hyperostosis (DISH). There are to severe spondylosis at L5-S1. Otherwise mild spondylosis in the lumbar and lower thoracic spine. IMPRESSION: 1. Liquid stool throughout the colon consistent with nonspecific diarrhea. Correlate for gastroenteri tis. 2. Consolidation with associated volume loss and bilateral lower lobes and favor atelectasis over pne umonia. 3. Small left pleural effusion. 4. Cardiomegaly and new small pericardial effusion. 5. Diffuse increased attenuation of the liver which can be seen due to either positioning the setting of hemachromatosis or hemosiderosis, copper disposition in the setting of Gurjit's disease, glycogen storage diseases or sequela of long-term amiodarone administration. 6. Diffuse wall thickening of the bladder which could be due to cystitis either acute or chronic or s equela of chronic outlet obstruction is also suggested by a few diverticula along the anterior wall. Reviewed, dictated and finalized at location A. H MIXER IMPRESSION: 1. Liquid stool throughout the colon consistent with nonspecific diarrhea. Staci elate for gastroenteritis. 2. Consolidation with associated volume loss and bilateral lower lobes and favo r atelectasis over pneumonia. 3. Small left pleural effusion. 4. Cardiomegaly and new small pericardial effusion. 5. Diffuse increased attenuation of the liver which can be seen due to either p ositioning the setting of hemachromatosis or hemosiderosis, copper disposition in the setting of Gurjit's disease, glycogen storage diseases or sequela of lazaro g-term amiodarone administration. 6. Diffuse wall thickening of the bladder which could be due to cystitis either acute or chronic or sequela of chronic outlet obstruction is also suggested by a few diverticula along the anterior wall.
--- NOTE | ~2022-05-12 | XR_ITS ---
EXAMINATION: XR chest 1V portable INDICATION: Cough TECHNIQUE: Portable AP chest at 1455 hours COMPARISON: 04/20/2022 FINDINGS: Cardiomegaly is noted. Diffuse interstitial and airspace opacities persist with interval wo rsening. There is unchanged elevation of the right hemidiaphragm. No pleural effusion or pneumothorax . IMPRESSION: 1. Diffuse lung disease with interval worsening, consistent with pneumonia and/or pulmonary edema. Reviewed, dictated and finalized at location B. POSTING REPRESENTATIVE IMPRESSION: 1. Diffuse lung disease with interval worsening, consistent with pneumonia and/ or pulmonary edema.
--- NOTE | 2022-05-12 14:47 | ECG_ITS ---
Measurements Intervals [place] Rate: 68 P: 117 AK: 147 QRS: -26 QRSD: 94 T: 97 QT: 416 QTc: 442 Interpretive Statements SINUS RHYTHM ATRIAL AND VENTRICULAR PREMATURE COMPLEXES DELAYED PRECORDIAL R/S TRANSITION HIGH LATERAL INFARCT, AGE INDETERMINATE BORDERLINE T WAVE ABNORMALITY- INFERIOR LEADS ABNORMAL ECG NO PREVIOUS ECG AVAILABLE FOR COMPARISON Electronically Signed On 05-12-2022 20:04:14 FRONT END WEB DESIGNER by Len Mccall D.O.
--- NOTE | 2022-05-12 14:56 | ED.GENADULT ---
HPI - General Adult General Chief complaint: Recheck/Abnormal Lab/Rx Stated complaint: abn labs Source: EMS, RN notes reviewed and other (penitentiary staff called prior to patient arrival) History of Present Illness HPI narrative: Patient presents emergency department from [facility] via EMS for low hemoglobin. Patient is nonverbal at baseline unable to give any history. The patient presents with records showing hemoglobin of 6.5 from blood draw today patient also had a chest x-ray showing possible bilateral pneumonia. The patient is chronically on 2 L nasal cannula no fevers per the facility no nausea or vomiting Related Data Home Medications Medication Instructions Recorded Confirmed apixaban 5 mg tablet (Eliquis) 5 mg feeding tube BID 04/25/22 04/25/22 ascorbate calcium (vitamin C) 500 mg feeding tube BID 04/25/22 04/25/22 benztropine 1 mg tablet 1 mg feeding tube BID 04/25/22 04/25/22 carbidopa 10 mg-levodopa 100 mg 1 tablet feeding tube Q6H 04/25/22 04/25/22 tablet carvedilol 6.25 mg tablet 6.25 mg feeding tube BID 04/25/22 04/25/22 clonidine HCl 0.3 mg tablet 0.3 mg feeding tube TID 04/25/22 04/25/22 docusate sodium 50 mg/5 mL oral 100 mg feeding tube BID 04/25/22 04/25/22 liquid ferrous sulfate 7.5 mg feeding tube DAILY 04/25/22 04/25/22 hydralazine 100 mg tablet 100 mg feeding tube Q8H 04/25/22 04/25/22 insulin NPH isoph U-100 human 100 See Rx Instructions .Route .COMPLEX 04/25/22 04/25/22 unit/mL (3 mL) subcutaneous pen (Novolin N FlexPen) insulin detemir U-100 100 unit/mL 22 unit subcut Q12H 04/25/22 04/25/22 (3 mL) subcutaneous pen (Levemir FlexTouch U-100 Insulin) insulin regular human 100 unit/mL 8 unit subcut TID 04/25/22 04/25/22 injection solution (Humulin R Regular U-100 Insulin) ipratropium 0.5 mg-albuterol 3 mg 3 ml inhalation Q4H PRN Shortness 04/25/22 04/25/22 (2.5 mg base)/3 mL nebulization Of Breath soln Allergies Allergy/AdvReac Type Severity Reaction Status Date / Time amlodipine Allergy Unknown Verified 05/12/22 15:55 fosinopril [From Monopril] Allergy Unknown Verified 05/12/22 15:55 Review of Systems Review of Systems: ROS unobtainable: Yes unobtainable due to medical condition (Nonverbal at baseline) [facility] Past Medical History Medical History Acute on chronic anemia Cerebrovascular accident Chronic obstructive pulmonary disease Chronic respiratory failure with hypoxia, on home oxygen therapy Dementia Hypertension Paroxysmal atrial fibrillation Type 2 diabetes mellitus Surgical History Surgical History History of gastrostomy tube placement Family History Family History Other Family history unknown Social History Social History Social History: Next of kin: Vikram Latham, son. Legal guardian: aRj Bustos. Code status: Full code. Smoking status: Unknown if ever smoked Alcohol intake: unknown Substance use: unknown Additional living arrangements comments: Resident at [facility]. Spiritual care concerns: No Exam Narrative: APPEARANCE: Chronically ill in appearance resting in bed EYES: PERRL HEENT: Normocephalic, atraumatic oral mucosa dry RESPIRATORY: No respiratory distress coarse breath sounds throughout bilateral lung brantley CARDIOVASCULAR: Regular rate and rhythm without murmurs rubs or gallops. ABDOMINAL: Soft, nontender, nondistended, no rebound or guarding PEG tube and Mittal catheter present MUSCULOSKELETAl: No clubbing, cyanosis or edema. NEURO: awake with eyes open does not follow commands SKIN:: Warm, dry. No rashes lesions or abrasions , Course Course Emergency Course: [facility]ed [facility] records Discussed with ILIANA Charles for Dr. Christianson agrees with admission agrees with plan sta
[2022-05-12] MEDS: ALBUTEROL SULFATE NEB 2.5 MG/3 ML INH 5 MG INHALATION (15:06)
[2022-05-12] MEDS: IPRATROPIUM BR 0.02% INH SOLN 0.5 MG/2.5 ML VIAL INHALATION (15:06)
[2022-05-12 15:24] LABS: Basophils Percent Auto 0.1 % (0.2-1.2); Eosinophils Absolute Auto 0.3 K/mm3 (0-0.3); Eosinophils Percent Auto 3.8 % (0-4.4); Hematocrit 24.6 % (37.0-47.0); Hemoglobin 7.1 g/dL (12.0-15.0); Immature Granulocyte Absolute 0.03 K/mm3 (0.00-0.031); Immature Granulocyte Percent A 0.4 % (0-0.5); Lymphocytes Absolute Auto 1.44 K/mm3 (0.9-3.2); Lymphocytes Percent Auto 20.5 % (18.3-44.2); Mean Corpuscular HGB Conc 28.9 g/dl (32-36); Mean Corpuscular Hemoglobin 30.2 pg (26-34); Mean Corpuscular Volume 104.7 fl (80-100); Mean Platelet Volume 12.5 fl (7.4-10.4); Monocytes Absolute Auto 0.5 K/mm3 (0.1-0.6); Monocytes Percent Auto 6.5 % (2.6-8.5); Neutrophils Absolute Auto 4.8 K/mm3 (1.3-6.7); Neutrophils Percent Auto 68.7 % (45.5-73.1); Platelet Count Result 237 k/mm3 (150-375); Red Blood Count 2.35 M/mm3 (4.2-5.4); Red Cell Distribution Width 16.7 % (11.5-14.5)
[2022-05-12 15:30] LABS: Lactic Acid Reflex 0.9 mmol/L (0.7-2.0)
[2022-05-12 15:31] LABS: INR 1.3; Prothrombin Time 15.8 Seconds (11.1-14.7)
[2022-05-12 15:32] LABS: Partial Thromboplastin Time 26.6 SECONDS (22.3-36.8)
[2022-05-12 15:37] LABS: Anisocytosis 1+ (NORMAL); Hypochromasia 1+ (NORMAL); Platelet Estimate Adequate (Adequate)
[2022-05-12 15:38] LABS: Ovalocytes 1+ (NORMAL); Schistocytes None Seen (NORMAL); Stomatocytes 1+ (NORMAL)
[2022-05-12 15:57] LABS: Influenza A QL RT-PCR Negative (Negative); Influenza B QL RT-PCR Negative (Negative); SARS-CoV-2 RNA PCR Negative
[2022-05-12 16:01] LABS: Alanine Aminotransferase 14 U/L (6-35); Albumin Level 3.1 g/dL (3.5-5.1); Alkaline Phosphatase 94 U/L (38-126); Anion Gap 4 mmol/L (8-16); Aspartate Amino Transferase 37 U/L (14-36); Bilirubin,Total 0.2 mg/dL (0.2-1.3); Blood Urea Nitrogen 91 mg/dL (7-17); Carbon Dioxide 31 mmol/L (22-30); Chloride 109 mmol/L (98-107); Estimated Glomerular Filt Rate 24; Glucose 92 mg/dL (65-110); Magnesium 3.3 mg/dL (1.6-2.3); Potassium 4.1 mmol/L (3.4-5.0); Sodium 144 mmol/L (137-145)
[2022-05-12 16:04] LABS: Appearance Urine Clear (Clear); Bilirubin Urine Negative (Negative); Blood Urine Negative (Negative); Color Urine Yellow (Yellow); Glucose Urine UA Negative (Negative); Ketones Urine Negative (Negative); Leukocyte Esterase Ur Trace LEU/UL (Negative); Nitrate Urine Negative (Negative); Protein Urine 3+ mg/dL (Negative); Specific Grav Ur 1.015 (1.001-1.035); Urobilinogen Urine 0.2 mg/dL (<2.0); pH Urine 5.5 (5.0-9.0)
[2022-05-12 16:10] LABS: Bacteria Urine Trace /hpf; Mucus Urine Rare /lpf; Squamous Epithelial Cell Urine Rare /hpf (Few)
[2022-05-12 16:12] LABS: Add Urine Microscopic? YES
[2022-05-12 16:17] LABS: NT Pro B Type Natriuretic Pept 12600 pg/mL (19.9-100); Troponin I 0.074 ng/mL (0.000-0.034)
--- NOTE | 2022-05-12 17:00 | PM.IMHP ---
H&P: HPI History of Present Illness Date/Time: 05/12/22 17:00 Chief Complaint: Abnormal labs. Narrative: This is an unfortunate 72-year-old female with history of stroke, dementia, hypertension, paroxysmal atrial fibrillation on chronic anticoagulation, diastolic dysfunction, COPD on 2 liters, and diabetes who presented to the emergency department from [facility] for further treatment evaluation after she was found to have abnormal labs. She is nonverbal and is unable to give any history. She is known to myself and the hospitalist service from a recent admission at which time she was admitted with a dislodged gastrostomy tube and hypertensive urgency. G-tube was replaced and her blood pressure was under better control when she was discharged. She was also treated with imipenem for 7 days for ESBL E coli in the urine as well as pulmonary opacities. She was also transfused a unit of packed red blood cells for anemia felt to be related to anemia chronic disease. Eliquis was held for a short time but was resumed on discharge. She apparently had repeat labs done today and her hemoglobin was reportedly 6.5 which prompted her to be sent to the ER. Vital signs were stable on arrival to the emergency department. Pertinent labs today include a hemoglobin of 7.1, hematocrit 24.6%, BUN 91, creatinine 2.40, proBNP 18807. Chest x-ray showed diffuse lung disease with interval worsening consistent with pneumonia and/or pulmonary edema. She is being admitted in this setting for further treatment and evaluation. Review of Systems Review of Systems: Unable to obtain as she is aphasic. [facility] Past Medical History Medical History (Updated 05/12/22 @ 22:41 by Arcaeli Schneider PA-C) Cerebrovascular accident Chronic anemia Chronic obstructive pulmonary disease Chronic respiratory failure with hypoxia, on home oxygen therapy Dementia Heart failure with preserved ejection fraction Hypertension Paroxysmal atrial fibrillation Type 2 diabetes mellitus Surgical History Surgical History History of gastrostomy tube placement Family History Family History Other Family history unknown Social History Social History Social History: Next of kin: Vikram Latham, son. Legal guardian: Raj Bustos. Code status: Full code. Smoking status: Never smoker Alcohol intake: never Substance use: never Substance use type: does not use Additional living arrangements comments: Resident at [facility]. Spiritual care concerns: No Meds Home Medications and Allergies Home Medications Medication Instructions Recorded Confirmed Type apixaban 5 mg tablet (Eliquis) 5 mg feeding tube BID 04/25/22 05/12/22 History ascorbate calcium (vitamin C) 500 mg feeding tube BID 04/25/22 05/12/22 History benztropine 1 mg tablet 1 mg feeding tube BID 04/25/22 05/12/22 History carbidopa 10 mg-levodopa 100 mg 1 tablet feeding tube Q6H 04/25/22 05/12/22 History tablet carvedilol 6.25 mg tablet 6.25 mg feeding tube BID 04/25/22 05/12/22 History clonidine HCl 0.3 mg tablet 0.3 mg feeding tube TID 04/25/22 05/12/22 History docusate sodium 50 mg/5 mL oral 100 mg feeding tube BID 04/25/22 05/12/22 History liquid ferrous sulfate 7.5 mg feeding tube DAILY 04/25/22 05/12/22 History hydralazine 100 mg tablet 100 mg feeding tube Q8H 04/25/22 05/12/22 History insulin NPH isoph U-100 human 100 See Rx Instructions .Route .COMPLEX 04/25/22 05/12/22 History unit/mL (3 mL) subcutaneous pen (Novolin N FlexPen) insulin detemir U-100 100 unit/mL 22 unit subcut Q12H 04/25/22 05/12/22 History (3 mL) subcutaneous pen (Levemir FlexTouch U-100 Insulin) insulin regular human 100 unit/mL 8 unit subcut TID 04/25/22 05/12/22 History injection solution (Humulin R Regula
--- NOTE | 2022-05-12 19:07 | ADMGEN ---
This patient, Aman Latham, was admitted to IMU Room 200-01. Patient/family oriented to hospital policies and general routines including ID bracelet, bed and alarms, visiting hours, pain management, procedures, bathroom and other care routines, personal items, smoking policy, room service/diet, and visiting hours. Information on how to activate the Rapid Response Team has been discussed. Patient/Family are encouraged to report perceived risks to care and to ask questions if they do not understand what they are told or what they should do.
[2022-05-12 19:20] LABS: Troponin I 0.076 ng/mL (0.000-0.034)
[2022-05-12 22:47] LABS: Troponin I 0.084 ng/mL (0.000-0.034)
[2022-05-12 23:27] LABS: Glucose Point of Care 37 mg/dl (65-105)
[2022-05-12 23:29] LABS: Hematocrit 24.5 % (37.0-47.0)
[2022-05-12] MEDS: DEXTROSE 50% 25 GM/50 ML SYRINGE IV PUSH (23:30)
[2022-05-12 23:45] LABS: CRP 1.6 mg/dL (<1.0)
[2022-05-13] VITALS (23 sets, daily range): BP systolic 117–144; BP diastolic 46–65; PULSE 56–87; RESP 12–20; TEMP 35.7–36.6; O2SAT 100; BMI 32.1
[2022-05-13 00:11] LABS: Procalcitonin 0.2 ng/mL
[2022-05-13 00:30] LABS: Glucose Point of Care 118 mg/dl (65-105)
[2022-05-13] MEDS: CARBIDOPA/LEVODOPA 10/100 MG TABLET 1 TABLET FEED TUBE ×4 (00:34→17:01)
[2022-05-13] MEDS: hydrALAZINE HCL 50 MG TABLET 100 MG FEED TUBE ×4 (00:34→21:12)
[2022-05-13] MEDS: FUROSEMIDE INJ 40 MG/4 ML VIAL IV PUSH (00:39)
[2022-05-13 05:19] LABS: Basophils Percent Auto 0.5 % (0.2-1.2); Eosinophils Absolute Auto 0.3 K/mm3 (0-0.3); Eosinophils Percent Auto 4.8 % (0-4.4); Hemoglobin 7.1 g/dL (12.0-15.0); Immature Granulocyte Absolute 0.04 K/mm3 (0.00-0.031); Immature Granulocyte Percent A 0.6 % (0-0.5); Lymphocytes Absolute Auto 1.55 K/mm3 (0.9-3.2); Lymphocytes Percent Auto 23.4 % (18.3-44.2); Mean Corpuscular HGB Conc 28.4 g/dl (32-36); Mean Corpuscular Hemoglobin 29.7 pg (26-34); Mean Corpuscular Volume 104.6 fl (80-100); Mean Platelet Volume 12.2 fl (7.4-10.4); Monocytes Absolute Auto 0.5 K/mm3 (0.1-0.6); Neutrophils Absolute Auto 4.1 K/mm3 (1.3-6.7); Neutrophils Percent Auto 62.7 % (45.5-73.1); Platelet Count Result 212 k/mm3 (150-375); Red Blood Count 2.39 M/mm3 (4.2-5.4); Red Cell Distribution Width 16.1 % (11.5-14.5); White Blood Count 6.6 K/mm3 (4.5-10.0)
[2022-05-13 05:41] LABS: Alanine Aminotransferase 9 U/L (6-35); Albumin Level 3.2 g/dL (3.5-5.1); Alkaline Phosphatase 96 U/L (38-126); Anion Gap 4 mmol/L (8-16); Aspartate Amino Transferase 39 U/L (14-36); Bilirubin,Total 0.3 mg/dL (0.2-1.3); Blood Urea Nitrogen 91 mg/dL (7-17); Calcium 10.2 mg/dL (8.4-10.2); Carbon Dioxide 31 mmol/L (22-30); Chloride 112 mmol/L (98-107); Estimated CRCL calculation 19 ml/min; Estimated Glomerular Filt Rate 24; Glucose 51 mg/dL (65-110); Magnesium 3.4 mg/dL (1.6-2.3); Sodium 147 mmol/L (137-145)
[2022-05-13 05:49] LABS: Platelet Estimate Adequate (Adequate)
[2022-05-13 05:50] LABS: Hypochromasia 2+ (NORMAL)
[2022-05-13 05:51] LABS: Stomatocytes 1+ (NORMAL)
[2022-05-13] MEDS: DEXTROSE 50% 25 GM/50 ML SYRINGE IV PUSH (06:00)
[2022-05-13 08:00] LABS: Schistocytes None Seen (NORMAL)
[2022-05-13] MEDS: LACTULOSE 20 GM/30 ML UDC FEED TUBE (09:26)
[2022-05-13] MEDS: MULTIVIT W/ IRON, MINERALS 15 ML LIQUID (*BKC) PO (09:26)
[2022-05-13] MEDS: DOCUSATE SODIUM LIQ 100 MG/10 ML UDC FEED TUBE ×2 (09:27→17:01)
[2022-05-13] MEDS: FERROUS SULFATE LIQUID 325 MG/7.4 ML ELIXIR FEED TUBE (09:28)
[2022-05-13] MEDS: cloNIDine HCL 0.1 MG TABLET 0.3 MG FEED TUBE ×3 (09:28→17:01)
[2022-05-13] MEDS: polyethylene glycoL 3350 17 GM POWD.PACK FEED TUBE (09:28)
[2022-05-13] MEDS: carvediloL 6.25 MG TABLET FEED TUBE ×2 (09:29→21:12)
[2022-05-13] MEDS: dilTIAZem HCL 30 MG TABLET FEED TUBE ×3 (09:29→17:01)
[2022-05-13] MEDS: FUROSEMIDE 40 MG TABLET FEED TUBE (09:29)
[2022-05-13] MEDS: ASCORBIC ACID 500 MG TABLET FEED TUBE ×2 (09:29→17:01)
[2022-05-13] MEDS: BENZTROPINE MESYLATE 1 MG TABLET FEED TUBE ×2 (09:29→17:01)
[2022-05-13] MEDS: SILVERGEL (ELTA) 45 ML 1 APPLIC TOPICAL (09:29)
[2022-05-13 11:50] LABS: Glucose Point of Care 114 mg/dl (65-105)
--- NOTE | 2022-05-13 13:22 | PM.IMPN ---
Progress Note: A&P Assessment and Plan (1) Acute on chronic anemia: Code(s): D64.9 - Anemia, unspecified Status: Acute Assessment and Plan: Will transfuse 1unit packed red blood cells. Fecal occult blood test pending. Based upon results, consider GI consult. No active bleeding noted right now. (2) Acute on chronic renal insufficiency: Code(s): N28.9 - Disorder of kidney and ureter, unspecified; N18.9 - Chronic kidney disease, unspecified Status: Acute Assessment and Plan: Monitor kidney function, baseline kidney function from 2.0. Current creatinine 2.4. Question new baseline. (3) Pulmonary infiltrates: Code(s): R91.8 - Other nonspecific abnormal finding of lung field Status: Acute Assessment and Plan: Continue antibiotics for community-acquired pneumonia (4) Proteinuria: Code(s): R80.9 - Proteinuria, unspecified Status: Acute (5) Hypertension: Code(s): I10 - Essential (primary) hypertension Status: Acute Assessment and Plan: Monitor (6) Heart failure with preserved ejection fraction: Code(s): I50.30 - Unspecified diastolic (congestive) heart failure Status: Acute (7) Chronic respiratory failure with hypoxia, on home oxygen therapy: Code(s): J96.11 - Chronic respiratory failure with hypoxia; Z99.81 - Dependence on supplemental oxygen Status: Acute (8) Chronic obstructive pulmonary disease: Code(s): J44.9 - Chronic obstructive pulmonary disease, unspecified Status: Acute (9) Dementia: Code(s): F03.90 - Unspecified dementia, unspecified severity, without behavioral disturbance, psychotic disturbance, mood disturbance, and anxiety Status: Acute (10) Paroxysmal atrial fibrillation: Code(s): I48.0 - Paroxysmal atrial fibrillation Status: Acute (11) Type 2 diabetes mellitus: Code(s): E11.9 - Type 2 diabetes mellitus without complications Status: Acute Plan The patient presented to the ED for evaluation after she was found to have low hemoglobin and hematocrit. Hemoglobin hematocrit here are 7.1 and 24.6% respectively. Repeat labs pending this evening and if further drop she will be transfused. Anemia is felt to be related to anemia of chronic disease and her apixaban was continued on discharge however it may be prudent to check her stool for occult blood. Once again her BUN and creatinine are elevated from baseline though she does not look overtly dry on exam nor does she look volume overloaded however her chest x-ray shows diffuse lung disease consistent with pneumonia and/or edema. She is afebrile with normal white blood cell count however it is plausible that she may be aspirating though no reports of such. Continue tube feeds, keeping head of bed elevated and monitoring residuals prior to feeds. Her proBNP is quite elevated today though I do not have a baseline to compare. Recent echo showed grade 1 diastolic dysfunction, severely increased LV wall thickness, moderate pulmonary hypertension, and mild MVR, [id number] TVR. IV Lasix x1 ordered to see how she responds. Mittal catheter inserted to monitor strict I/O. Avoid nephrotoxic agents. If no improvement a nephrology consult may be appropriate in light of proteinuria; it does look like she has had issues with poorly controlled hypertension. Her troponins have been mildly elevated but remain flat and her EKG is unchanged from prior tracings thus acute coronary syndrome is unlikely. No evidence to suggest COPD exacerbation. She is at her baseline oxygen requirement. Initiate sliding scale insulin, Accu-Cheks, and hypoglycemic protocol. The rest of her home medications will be reviewed and resumed as appropriate. Patient remains a full code. May be prudent to discuss her case with her legal guardian at least to change code status to DNR given her multiple comorbidities, recurrent hospitalizations, and poor quality of life. Subje
[2022-05-13] MEDS: SODIUM CHLORIDE 0.9% IV 250 ML 30 ML IV CONT (13:26)
--- NOTE | 2022-05-13 13:36 | PCDIET ---
Tube feeding recommendation: Glucerna 1.2 @ 65 ml/h with 150 ml free water flushes q 4 hours. Total 1720 kcals, 85 g protein, 2050 ml free water. Carlo mixed with flushes BID for pressure injury. *Start tube feed at 20ml/hr, advance by 10ml/hr q 4 hrs until goal rate.
[2022-05-13 16:30] LABS: Glucose Point of Care 97 mg/dl (65-105)
[2022-05-13 16:56] LABS: Glucose Point of Care 148 mg/dl (65-105)
[2022-05-13] MEDS: FUROSEMIDE INJ 40 MG/4 ML VIAL 20 MG IV PUSH (16:59)
[2022-05-13] MEDS: TUBING, BLOOD PLUM PUMP TUBING 1 EACH XX (16:59)
[2022-05-13 18:22] LABS: Hematocrit 27.3 % (37.0-47.0); Hemoglobin 8.2 g/dL (12.0-15.0)
[2022-05-13 18:27] LABS: Glucose Point of Care 198 mg/dl (65-105)
[2022-05-13 20:04] LABS: Glucose Point of Care 200 mg/dl (65-105)
[2022-05-13] MEDS: SENNA/DOCUSATE SODIUM TABLET 1 TAB PO (21:12)
[2022-05-14] VITALS (11 sets, daily range): BP systolic 121–145; BP diastolic 44–52; PULSE 57–76; RESP 16–18; TEMP 36.3–36.6; O2SAT 99–100
[2022-05-14 00:09] LABS: Glucose Point of Care 174 mg/dl (65-105)
[2022-05-14] MEDS: CARBIDOPA/LEVODOPA 10/100 MG TABLET 1 TABLET FEED TUBE ×4 (00:19→17:25)
[2022-05-14] MEDS: hydrALAZINE HCL 50 MG TABLET 100 MG FEED TUBE ×3 (05:09→21:04)
[2022-05-14] MEDS: polyethylene glycoL 3350 17 GM POWD.PACK FEED TUBE (08:47)
[2022-05-14] MEDS: ASCORBIC ACID 500 MG TABLET FEED TUBE ×2 (08:47→16:30)
[2022-05-14] MEDS: BENZTROPINE MESYLATE 1 MG TABLET FEED TUBE ×2 (08:47→16:31)
[2022-05-14] MEDS: FUROSEMIDE 40 MG TABLET FEED TUBE (08:48)
[2022-05-14] MEDS: dilTIAZem HCL 30 MG TABLET FEED TUBE ×3 (08:48→16:30)
[2022-05-14] MEDS: cloNIDine HCL 0.1 MG TABLET 0.3 MG FEED TUBE ×3 (08:48→16:30)
[2022-05-14] MEDS: carvediloL 6.25 MG TABLET FEED TUBE ×2 (08:48→21:05)
[2022-05-14] MEDS: LACTULOSE 20 GM/30 ML UDC FEED TUBE (08:49)
[2022-05-14] MEDS: FERROUS SULFATE LIQUID 325 MG/7.4 ML ELIXIR FEED TUBE (08:49)
[2022-05-14] MEDS: DOCUSATE SODIUM LIQ 100 MG/10 ML UDC FEED TUBE ×2 (08:49→16:30)
[2022-05-14] MEDS: MULTIVIT W/ IRON, MINERALS 15 ML LIQUID (*BKC) PO (08:50)
[2022-05-14] MEDS: SILVERGEL (ELTA) 45 ML 1 APPLIC TOPICAL (08:51)
[2022-05-14 09:42] LABS: Basophils Percent Auto 0.4 % (0.2-1.2); Eosinophils Absolute Auto 0.3 K/mm3 (0-0.3); Eosinophils Percent Auto 4.6 % (0-4.4); Hematocrit 30.9 % (37.0-47.0); Hemoglobin 9.3 g/dL (12.0-15.0); Immature Granulocyte Absolute 0.05 K/mm3 (0.00-0.031); Immature Granulocyte Percent A 0.7 % (0-0.5); Lymphocytes Absolute Auto 1.04 K/mm3 (0.9-3.2); Lymphocytes Percent Auto 15.3 % (18.3-44.2); Mean Corpuscular HGB Conc 30.1 g/dl (32-36); Mean Corpuscular Volume 96.3 fl (80-100); Mean Platelet Volume 12.3 fl (7.4-10.4); Monocytes Absolute Auto 0.4 K/mm3 (0.1-0.6); Monocytes Percent Auto 6.3 % (2.6-8.5); Neutrophils Percent Auto 72.7 % (45.5-73.1); Platelet Count Result 210 k/mm3 (150-375); Red Blood Count 3.21 M/mm3 (4.2-5.4); Red Cell Distribution Width 16.9 % (11.5-14.5); White Blood Count 6.8 K/mm3 (4.5-10.0)
[2022-05-14 09:45] LABS: Anion Gap 9 mmol/L (8-16); Blood Urea Nitrogen 81 mg/dL (7-17); Calcium 10.1 mg/dL (8.4-10.2); Carbon Dioxide 31 mmol/L (22-30); Chloride 107 mmol/L (98-107); Estimated CRCL calculation 19 ml/min; Estimated Glomerular Filt Rate 24; Glucose 193 mg/dL (65-110); Sodium 147 mmol/L (137-145)
--- NOTE | 2022-05-14 10:19 | PCNFU ---
Nutrition Follow-Up Complete: Inadequate energy intake related to NPO status without alternative nutrition support at this time as evidenced by current diet order. Goal: Meet estimated needs - Progressing toward goal with initiation of PEG tube feedings Pt current nutrition is Glucerna 1.2 @ 20 ml/h, progressing toward goal of 65 ml/h which provides 1720 kcals, 85 g protein. Flushes 150 ml q 4 hours for total free water 2050 ml. Carlo flushes ordered BID for additional 90 kcals and 2.5 g protein with each flush. Nutrition recommendation: Continue to progress toward goal rate of Glucerna 1.2 @ 65 ML/H as ordered. Agree with tube feeding orders Last recorded weight is 82.4 kg. Bowel Motility: No BM yet, on bowel regimen Labs Reviewed: Hgb 9.3, Hct 30.9, Na 147, BUN 81, Cre 2.4, Glu 193 Meds Noted: Lasix, Novolog, lactulose, senokot Skin: Stage III to sacrum Additional Notes: Tube feedings were started this morning and progressing toward goal rate. Agree with tube feeding orders. Pt has state guardian, nonverbal, to return to [facility] at discharge Monitor tube feedings, tolerance, wt, labs. Follow up every Tuesday and Tuesday.
--- NOTE | 2022-05-14 12:35 | PM.IMPN ---
Progress Note: A&P Assessment and Plan (1) Acute on chronic anemia: Code(s): D64.9 - Anemia, unspecified Status: Acute Assessment and Plan: Based upon results, consider GI consult. No active bleeding noted right now. (2) Acute on chronic renal insufficiency: Code(s): N28.9 - Disorder of kidney and ureter, unspecified; N18.9 - Chronic kidney disease, unspecified Status: Acute Assessment and Plan: Monitor kidney function, baseline kidney function from 2.0. Current creatinine 2.4. Question new baseline. (3) Pulmonary infiltrates: Code(s): R91.8 - Other nonspecific abnormal finding of lung field Status: Acute Assessment and Plan: Continue antibiotics for community-acquired pneumonia (4) Proteinuria: Code(s): R80.9 - Proteinuria, unspecified Status: Acute (5) Hypertension: Code(s): I10 - Essential (primary) hypertension Status: Acute Assessment and Plan: Monitor (6) Heart failure with preserved ejection fraction: Code(s): I50.30 - Unspecified diastolic (congestive) heart failure Status: Acute (7) Chronic respiratory failure with hypoxia, on home oxygen therapy: Code(s): J96.11 - Chronic respiratory failure with hypoxia; Z99.81 - Dependence on supplemental oxygen Status: Acute (8) Chronic obstructive pulmonary disease: Code(s): J44.9 - Chronic obstructive pulmonary disease, unspecified Status: Acute (9) Dementia: Code(s): F03.90 - Unspecified dementia, unspecified severity, without behavioral disturbance, psychotic disturbance, mood disturbance, and anxiety Status: Acute (10) Paroxysmal atrial fibrillation: Code(s): I48.0 - Paroxysmal atrial fibrillation Status: Acute (11) Type 2 diabetes mellitus: Code(s): E11.9 - Type 2 diabetes mellitus without complications Status: Acute Plan The patient presented to the ED for evaluation after she was found to have low hemoglobin and hematocrit. Hemoglobin hematocrit here are 7.1 and 24.6% respectively. Repeat labs pending this evening and if further drop she will be transfused. Anemia is felt to be related to anemia of chronic disease and her apixaban was continued on discharge however it may be prudent to check her stool for occult blood. Once again her BUN and creatinine are elevated from baseline though she does not look overtly dry on exam nor does she look volume overloaded however her chest x-ray shows diffuse lung disease consistent with pneumonia and/or edema. She is afebrile with normal white blood cell count however it is plausible that she may be aspirating though no reports of such. Continue tube feeds, keeping head of bed elevated and monitoring residuals prior to feeds. Her proBNP is quite elevated today though I do not have a baseline to compare. Recent echo showed grade 1 diastolic dysfunction, severely increased LV wall thickness, moderate pulmonary hypertension, and mild MVR, [id number] TVR. IV Lasix x1 ordered to see how she responds. Mittal catheter inserted to monitor strict I/O. Avoid nephrotoxic agents. If no improvement a nephrology consult may be appropriate in light of proteinuria; it does look like she has had issues with poorly controlled hypertension. Her troponins have been mildly elevated but remain flat and her EKG is unchanged from prior tracings thus acute coronary syndrome is unlikely. No evidence to suggest COPD exacerbation. She is at her baseline oxygen requirement. Initiate sliding scale insulin, Accu-Cheks, and hypoglycemic protocol. The rest of her home medications will be reviewed and resumed as appropriate. Patient remains a full code. May be prudent to discuss her case with her legal guardian at least to change code status to DNR given her multiple comorbidities, recurrent hospitalizations, and poor quality of life. Subjective Date/time seen: 05/14/22 12:35 Doing okay. Exam Narrative:
[2022-05-14] MEDS: INSULIN ASPART (*BKC) 100 UNITS/ML SUB-Q (13:25)
[2022-05-14 15:18] LABS: Glucose Point of Care 227 mg/dl (65-105)
--- NOTE | 2022-05-14 17:13 | PC.NURSE ---
This patient, Aman Latham, was transferred to [[id number] ] on 05/14/22 at 1705. Personal belongings sent with patient. Report given to [ Lorenza HENDRICKS]. Appropriate documentation sent with patient.
[2022-05-14 17:18] LABS: Glucose Point of Care 180 mg/dl (65-105)
[2022-05-14 18:42] LABS: IFOB Positive Control Positive; Immunochemical Fecal Occult Bl Positive (N)
[2022-05-14 20:05] LABS: Glucose Point of Care 211 mg/dl (65-105)
[2022-05-14] MEDS: SENNA/DOCUSATE SODIUM TABLET 1 TAB PO (21:05)
[2022-05-15] VITALS (9 sets, daily range): BP systolic 125–139; BP diastolic 49–51; PULSE 58–65; RESP 12–16; TEMP 36.4–37; O2SAT 100
[2022-05-15] LABS: Glucose Point of Care 209 mg/dl (65-105)
[2022-05-15] MEDS: CARBIDOPA/LEVODOPA 10/100 MG TABLET 1 TABLET FEED TUBE ×4 (00:28→17:12)
[2022-05-15] MEDS: INSULIN ASPART (*BKC) 100 UNITS/ML SUB-Q ×3 (00:29→17:15)
[2022-05-15] MEDS: hydrALAZINE HCL 50 MG TABLET 100 MG FEED TUBE ×3 (06:01→21:21)
[2022-05-15 06:07] LABS: Glucose Point of Care 197 mg/dl (65-105)
[2022-05-15] MEDS: cloNIDine HCL 0.1 MG TABLET 0.3 MG FEED TUBE ×3 (09:40→17:15)
[2022-05-15] MEDS: LACTULOSE 20 GM/30 ML UDC FEED TUBE (09:40)
[2022-05-15] MEDS: carvediloL 6.25 MG TABLET FEED TUBE ×2 (09:41→21:21)
[2022-05-15] MEDS: FERROUS SULFATE LIQUID 325 MG/7.4 ML ELIXIR FEED TUBE (09:41)
[2022-05-15] MEDS: polyethylene glycoL 3350 17 GM POWD.PACK FEED TUBE (09:41)
[2022-05-15] MEDS: MULTIVIT W/ IRON, MINERALS 15 ML LIQUID (*BKC) PO (09:41)
[2022-05-15] MEDS: DOCUSATE SODIUM LIQ 100 MG/10 ML UDC FEED TUBE (09:41)
[2022-05-15] MEDS: ASCORBIC ACID 500 MG TABLET FEED TUBE ×2 (09:41→17:12)
[2022-05-15] MEDS: dilTIAZem HCL 30 MG TABLET FEED TUBE ×3 (09:42→17:12)
[2022-05-15] MEDS: SILVERGEL (ELTA) 45 ML 1 APPLIC TOPICAL (09:42)
[2022-05-15] MEDS: FUROSEMIDE 40 MG TABLET FEED TUBE (09:42)
[2022-05-15] MEDS: BENZTROPINE MESYLATE 1 MG TABLET FEED TUBE ×2 (09:42→17:12)
[2022-05-15 12:26] LABS: Glucose Point of Care 256 mg/dl (65-105)
--- NOTE | 2022-05-15 14:12 | PM.IMPN ---
Progress Note: A&P Assessment and Plan (1) Acute on chronic anemia: Code(s): D64.9 - Anemia, unspecified Status: Acute Assessment and Plan: Based upon results, consider GI consult. No active bleeding noted right now. (2) Acute on chronic renal insufficiency: Code(s): N28.9 - Disorder of kidney and ureter, unspecified; N18.9 - Chronic kidney disease, unspecified Status: Acute Assessment and Plan: Monitor kidney function, baseline kidney function from 2.0. Current creatinine 2.4. Question new baseline. (3) Pulmonary infiltrates: Code(s): R91.8 - Other nonspecific abnormal finding of lung field Status: Acute Assessment and Plan: Continue antibiotics for community-acquired pneumonia (4) Proteinuria: Code(s): R80.9 - Proteinuria, unspecified Status: Acute (5) Hypertension: Code(s): I10 - Essential (primary) hypertension Status: Acute Assessment and Plan: Monitor (6) Heart failure with preserved ejection fraction: Code(s): I50.30 - Unspecified diastolic (congestive) heart failure Status: Acute (7) Chronic respiratory failure with hypoxia, on home oxygen therapy: Code(s): J96.11 - Chronic respiratory failure with hypoxia; Z99.81 - Dependence on supplemental oxygen Status: Acute (8) Chronic obstructive pulmonary disease: Code(s): J44.9 - Chronic obstructive pulmonary disease, unspecified Status: Acute (9) Dementia: Code(s): F03.90 - Unspecified dementia, unspecified severity, without behavioral disturbance, psychotic disturbance, mood disturbance, and anxiety Status: Acute (10) Paroxysmal atrial fibrillation: Code(s): I48.0 - Paroxysmal atrial fibrillation Status: Acute (11) Type 2 diabetes mellitus: Code(s): E11.9 - Type 2 diabetes mellitus without complications Status: Acute (12) Bacteremia: Code(s): R78.81 - Bacteremia Status: Acute Assessment and Plan: Staph capitis and both blood cultures. IV vanc Subjective Date/time seen: 05/15/22 14:12 No new complaints Exam Narrative: General: Nontoxic-appearing female sitting up in bed. Weight: 82.4 kilograms. BMI: 32.2. HEENT: Left pupil is sluggishly reactive. Sclerae anicteric. Lips appear dry. She did not open her mouth for oral exam. Neck: Supple. Respiratory: Respirations are nonlabored. Lung sounds are diminished throughout and somewhat coarse. Cardiovascular: Regular rate and rhythm with S1-S2. Soft murmur at the upper sternal border. Gastrointestinal: Abdomen is soft, nontender, and nondistended with positive bowel sounds. Gastrostomy tube site is clean, dry, and intact and contains opaque whitish yellow material. Skin: Warm and dry. No rash or lesions on limited exam. Extremities: No cyanosis, clubbing, or edema. Radial pulses palpable. She is wearing waffle boots. Neurological: Alert. Unable to assess for orientation as she nonverbal. Cranial nerves 2-12 are grossly intact. She did move both of her arms to stimuli. Muscles in legs are atrophic. Psychiatric: Unable to assess as she is nonverbal. She is alert and cooperative with exam. Objective Data Vital Signs Vital Signs: Vital Signs - 24 hr 05/14/22 16:00 05/14/22 16:50 05/14/22 21:05 Temperature 97.8 F Pulse Rate 58 L 65 64 Respiratory Rate 18 Blood Pressure 121/44 L Pulse Oximetry 100 Oxygen Delivery Oxygen Flow Rate 05/15/22 00:00 05/14/22 20:00 05/15/22 00:00 Temperature 98.6 F Pulse Rate 58 L 57 L 60 Respiratory Rate 16 Blood Pressure 129/49 L Pulse Oximetry 100 Oxygen Delivery Oxygen Flow Rate 05/15/22 04:00 05/14/22 19:42 05/15/22 08:00 Temperature 97.8 F Pulse Rate 62 65 Respiratory Rate 12 Blood Pressure 125/50 L Pulse Oximetry 99 100 Oxygen Delivery Room Air Oxygen Flow Rate 05/15/22 09:41 05/15/22 09:45 05/15/22 09:45 Temperature
[2022-05-15 17:16] LABS: Glucose Point of Care 277 mg/dl (65-105)
[2022-05-15] MEDS: LOPERAMIDE HCL 2 MG CAPSULE PO (21:40)
[2022-05-15 21:43] LABS: Glucose Point of Care 200 mg/dl (65-105)
[2022-05-15 23:39] LABS: Glucose Point of Care 185 mg/dl (65-105)
[2022-05-16] VITALS (11 sets, daily range): BP systolic 130–146; BP diastolic 50–71; PULSE 58–73; RESP 16–18; TEMP 36.2–36.7; O2SAT 97–100
[2022-05-16] MEDS: CARBIDOPA/LEVODOPA 10/100 MG TABLET 1 TABLET FEED TUBE ×5 (01:11→22:47)
[2022-05-16] MEDS: hydrALAZINE HCL 50 MG TABLET 100 MG FEED TUBE ×3 (05:59→22:47)
[2022-05-16 06:07] LABS: Glucose Point of Care 225 mg/dl (65-105)
[2022-05-16 09:34] LABS: Hematocrit 26.4 % (37.0-47.0)
[2022-05-16 09:48] LABS: Anion Gap 7 mmol/L (8-16); Blood Urea Nitrogen 86 mg/dL (7-17); Calcium 9.7 mg/dL (8.4-10.2); Carbon Dioxide 29 mmol/L (22-30); Chloride 99 mmol/L (98-107); Estimated CRCL calculation 25 ml/min; Estimated Glomerular Filt Rate 31; Glucose 217 mg/dL (65-110); Sodium 135 mmol/L (137-145)
[2022-05-16] MEDS: FERROUS SULFATE LIQUID 325 MG/7.4 ML ELIXIR FEED TUBE (09:55)
[2022-05-16] MEDS: MULTIVIT W/ IRON, MINERALS 15 ML LIQUID (*BKC) PO (09:55)
[2022-05-16] MEDS: dilTIAZem HCL 30 MG TABLET FEED TUBE ×3 (09:55→17:09)
[2022-05-16] MEDS: ASCORBIC ACID 500 MG TABLET FEED TUBE ×2 (09:56→17:09)
[2022-05-16] MEDS: BENZTROPINE MESYLATE 1 MG TABLET FEED TUBE ×2 (09:56→17:09)
[2022-05-16] MEDS: SILVERGEL (ELTA) 45 ML 1 APPLIC TOPICAL (09:56)
[2022-05-16] MEDS: LACTULOSE 20 GM/30 ML UDC FEED TUBE (09:56)
[2022-05-16] MEDS: FUROSEMIDE 40 MG TABLET FEED TUBE (09:56)
[2022-05-16] MEDS: carvediloL 6.25 MG TABLET FEED TUBE ×2 (09:56→22:47)
[2022-05-16] MEDS: cloNIDine HCL 0.1 MG TABLET 0.3 MG FEED TUBE ×3 (09:58→17:06)
[2022-05-16 12:36] LABS: Glucose Point of Care 275 mg/dl (65-105)
[2022-05-16] MEDS: INSULIN ASPART (*BKC) 100 UNITS/ML SUB-Q ×2 (13:32→17:11)
--- NOTE | 2022-05-16 14:03 | PM.IMPN ---
Progress Note: A&P Assessment and Plan (1) Acute on chronic anemia: Code(s): D64.9 - Anemia, unspecified Status: Acute Assessment and Plan: No active bleeding noted right now. Hemoccult-positive GI consult Monitor hemoglobin transfuse as needed (2) Acute on chronic renal insufficiency: Code(s): N28.9 - Disorder of kidney and ureter, unspecified; N18.9 - Chronic kidney disease, unspecified Status: Acute Assessment and Plan: Patient is currently at baseline kidney function with creatinine around 2. (3) Pulmonary infiltrates: Code(s): R91.8 - Other nonspecific abnormal finding of lung field Status: Acute Assessment and Plan: Continue antibiotics for community-acquired pneumonia (4) Proteinuria: Code(s): R80.9 - Proteinuria, unspecified Status: Acute (5) Hypertension: Code(s): I10 - Essential (primary) hypertension Status: Acute Assessment and Plan: Monitor (6) Heart failure with preserved ejection fraction: Code(s): I50.30 - Unspecified diastolic (congestive) heart failure Status: Acute (7) Chronic respiratory failure with hypoxia, on home oxygen therapy: Code(s): J96.11 - Chronic respiratory failure with hypoxia; Z99.81 - Dependence on supplemental oxygen Status: Acute (8) Chronic obstructive pulmonary disease: Code(s): J44.9 - Chronic obstructive pulmonary disease, unspecified Status: Acute (9) Dementia: Code(s): F03.90 - Unspecified dementia, unspecified severity, without behavioral disturbance, psychotic disturbance, mood disturbance, and anxiety Status: Acute (10) Paroxysmal atrial fibrillation: Code(s): I48.0 - Paroxysmal atrial fibrillation Status: Acute (11) Type 2 diabetes mellitus: Code(s): E11.9 - Type 2 diabetes mellitus without complications Status: Acute (12) Bacteremia: Code(s): R78.81 - Bacteremia Status: Acute Assessment and Plan: Staph capitis and both blood cultures. IV vanc Will get echocardiogram. ? Related to wound Subjective Date/time seen: 05/16/22 14:03 Having some abdominal distention. Otherwise patient is alert today. Exam Narrative: General: Nontoxic-appearing female sitting up in bed. Weight: 82.4 kilograms. BMI: 32.2. HEENT: Left pupil is sluggishly reactive. Sclerae anicteric. Lips appear dry. She did not open her mouth for oral exam. Neck: Supple. Respiratory: Respirations are nonlabored. Lung sounds are diminished throughout and somewhat coarse. Cardiovascular: Regular rate and rhythm with S1-S2. Soft murmur at the upper sternal border. Gastrointestinal: Abdomen is soft, nontender, and nondistended with positive bowel sounds. Gastrostomy tube site is clean, dry, and intact and contains opaque whitish yellow material. Skin: Warm and dry. No rash or lesions on limited exam. Extremities: No cyanosis, clubbing, or edema. Radial pulses palpable. She is wearing waffle boots. Neurological: Alert. Unable to assess for orientation as she nonverbal. Cranial nerves 2-12 are grossly intact. She did move both of her arms to stimuli. Muscles in legs are atrophic. Psychiatric: Unable to assess as she is nonverbal. She is alert and cooperative with exam. Objective Data Vital Signs Vital Signs: Vital Signs - 24 hr 05/15/22 16:00 05/15/22 16:00 05/15/22 20:18 Temperature 97.6 F Pulse Rate 59 L 62 58 L Respiratory Rate 14 Blood Pressure 139/51 L Pulse Oximetry 100 05/15/22 21:21 05/16/22 00:00 05/16/22 00:00 Temperature 98.1 F Pulse Rate 62 58 L 64 Respiratory Rate 16 Blood Pressure 136/71 Pulse Oximetry 97 05/16/22 04:00 05/16/22 08:47 05/16/22 09:56 Temperature 97.1 F L Pulse Rate 66 73 73 Respiratory Rate 16 Blood Pressure 130/50 L Pulse Oximetry 100 Intake/Output Intake/Output: Intake & Output 05/13/22 05/14/22 05/15/22 05/16/22 23:59 23:59 2
[2022-05-16 17:20] LABS: Glucose Point of Care 220 mg/dl (65-105)
[2022-05-17] VITALS (11 sets, daily range): BP systolic 133–152; BP diastolic 52–67; PULSE 42–74; RESP 18–20; TEMP 36.4–36.9; O2SAT 98–100
--- NOTE | 2022-05-17 | ECHOL_ITS ---
Patient Info Name: Aman Latham Age: 72 years : 1950 Gender: Female Ht: 63 in Wt: 190 lbs BSA: 1.99 m2 HR: 73 bpm BP: 133 / 67 mmHg Heart Rhythm: Sinus Rhythm Technical Quality: Good Exam Date: 05/17/2022 2:27 PM Exam Location: [facility] Patient Status: Inpatient Admit Date: 05/12/2022 Staff Ordering Physician: Manoj Mcmahon MD Corporate Law Assistant: Shilpa Mosley RDCS Attending Provider: Marbella Christianson DO Referring Physician: Lisandro FLOEY; Exam Type: CA echo limited Study Info Indications - BACTEREMIA Limited two-dimensional transthoracic echocardiogram is performed. Summary 1. Limited study with limited views. 2. Left ventricular chamber dimension is normal. 3. Left ventricular systolic function is normal, estimated at 65-70%. 4. There is severely increased left ventricular wall thickness. 5. There is trace mitral valve regurgitation. 6. The mitral valve has thickened leaflets. 7. The mitral valve annulus is moderately calcified. 8. No clearly identified mobile vegetation identified. Clinical correlation advised. Recommendations * Consider transesophageal echocardiogram if clinically indicated. Left Ventricle Left ventricular chamber dimension is normal. Left ventricular systolic function is normal, estimated at 65-70%. There is severely increased left ventricular wall thickness. Limited study with limited views. Right Ventricle Right ventricular chamber dimension is normal. Right ventricular systolic function is normal. Aortic Valve The aortic valve is probable trileaflet. There is mild aortic valve sclerosis. There is no aortic valve regurgitation. Pulmonic Valve The pulmonic valve is not well visualized. Mitral Valve The mitral valve has thickened leaflets. There is trace mitral valve regurgitation. The mitral valve annulus is moderately calcified. No clearly identified mobile vegetation identified. Clinical correlation advised. Tricuspid Valve The tricuspid valve leaflets are normal. Pericardium/Pleural The pericardium appears normal. There is trivial pericardial effusion. Aorta The aortic root size at the sinus of Valsalva is normal. There is mild aortic atherosclerosis. Report Signatures
[2022-05-17 00:46] LABS: Glucose Point of Care 232 mg/dl (65-105)
[2022-05-17] MEDS: hydrALAZINE HCL 50 MG TABLET 100 MG FEED TUBE ×3 (06:18→22:34)
[2022-05-17] MEDS: CARBIDOPA/LEVODOPA 10/100 MG TABLET 1 TABLET FEED TUBE ×4 (06:18→22:35)
[2022-05-17] MEDS: INSULIN ASPART (*BKC) 100 UNITS/ML SUB-Q ×3 (06:24→18:09)
[2022-05-17 06:26] LABS: Glucose Point of Care 225 mg/dl (65-105)
[2022-05-17 08:18] LABS: Basophils Percent Auto 0.4 % (0.2-1.2); Eosinophils Absolute Auto 0.4 K/mm3 (0-0.3); Eosinophils Percent Auto 5.6 % (0-4.4); Hematocrit 27.8 % (37.0-47.0); Hemoglobin 8.6 g/dL (12.0-15.0); Immature Granulocyte Absolute 0.13 K/mm3 (0.00-0.031); Immature Granulocyte Percent A 1.8 % (0-0.5); Lymphocytes Absolute Auto 1.13 K/mm3 (0.9-3.2); Mean Corpuscular HGB Conc 30.9 g/dl (32-36); Mean Corpuscular Hemoglobin 29.6 pg (26-34); Mean Corpuscular Volume 95.5 fl (80-100); Mean Platelet Volume 12.9 fl (7.4-10.4); Monocytes Absolute Auto 0.6 K/mm3 (0.1-0.6); Neutrophils Absolute Auto 4.8 K/mm3 (1.3-6.7); Neutrophils Percent Auto 67.2 % (45.5-73.1); Platelet Count Result 162 k/mm3 (150-375); Red Blood Count 2.91 M/mm3 (4.2-5.4); Red Cell Distribution Width 14.8 % (11.5-14.5); White Blood Count 7.1 K/mm3 (4.5-10.0)
[2022-05-17 08:20] LABS: Estimated CRCL calculation 25 ml/min; Estimated Glomerular Filt Rate 31
[2022-05-17] MEDS: dilTIAZem HCL 30 MG TABLET FEED TUBE ×3 (08:36→17:08)
[2022-05-17] MEDS: BENZTROPINE MESYLATE 1 MG TABLET FEED TUBE ×2 (08:36→17:08)
[2022-05-17] MEDS: FUROSEMIDE 40 MG TABLET FEED TUBE (08:36)
[2022-05-17] MEDS: ASCORBIC ACID 500 MG TABLET FEED TUBE ×2 (08:36→17:08)
[2022-05-17] MEDS: carvediloL 6.25 MG TABLET FEED TUBE (08:36)
[2022-05-17] MEDS: LACTULOSE 20 GM/30 ML UDC FEED TUBE (08:37)
[2022-05-17] MEDS: MULTIVIT W/ IRON, MINERALS 15 ML LIQUID (*BKC) PO (08:37)
[2022-05-17] MEDS: FERROUS SULFATE LIQUID 325 MG/7.4 ML ELIXIR FEED TUBE (08:37)
[2022-05-17] MEDS: SILVERGEL (ELTA) 45 ML 1 APPLIC TOPICAL (08:38)
[2022-05-17 09:59] LABS: Vancomycin Trough 26.2 ug/mL (10.0-20.0)
[2022-05-17] MEDS: cloNIDine HCL 0.1 MG TABLET 0.3 MG FEED TUBE ×3 (10:21→17:08)
--- NOTE | 2022-05-17 11:27 | PM.IMPN ---
Progress Note: A&P Assessment and Plan (1) Acute on chronic anemia: Code(s): D64.9 - Anemia, unspecified Status: Acute Assessment and Plan: No active bleeding noted right now. Hemoccult-positive GI consult Monitor hemoglobin transfuse as needed (2) Acute on chronic renal insufficiency: Code(s): N28.9 - Disorder of kidney and ureter, unspecified; N18.9 - Chronic kidney disease, unspecified Status: Acute Assessment and Plan: Patient is currently at baseline kidney function with creatinine around 2. (3) Pulmonary infiltrates: Code(s): R91.8 - Other nonspecific abnormal finding of lung field Status: Acute Assessment and Plan: Continue antibiotics for community-acquired pneumonia (4) Proteinuria: Code(s): R80.9 - Proteinuria, unspecified Status: Acute (5) Hypertension: Code(s): I10 - Essential (primary) hypertension Status: Acute Assessment and Plan: Monitor (6) Heart failure with preserved ejection fraction: Code(s): I50.30 - Unspecified diastolic (congestive) heart failure Status: Acute (7) Chronic respiratory failure with hypoxia, on home oxygen therapy: Code(s): J96.11 - Chronic respiratory failure with hypoxia; Z99.81 - Dependence on supplemental oxygen Status: Acute (8) Chronic obstructive pulmonary disease: Code(s): J44.9 - Chronic obstructive pulmonary disease, unspecified Status: Acute (9) Dementia: Code(s): F03.90 - Unspecified dementia, unspecified severity, without behavioral disturbance, psychotic disturbance, mood disturbance, and anxiety Status: Acute (10) Paroxysmal atrial fibrillation: Code(s): I48.0 - Paroxysmal atrial fibrillation Status: Acute (11) Type 2 diabetes mellitus: Code(s): E11.9 - Type 2 diabetes mellitus without complications Status: Acute (12) Bacteremia: Code(s): R78.81 - Bacteremia Status: Acute Assessment and Plan: Staph capitis and both blood cultures. IV vanc Will get echocardiogram. ? Related to wound Subjective Date/time seen: 05/17/22 11:27 No acute events overnight Exam Narrative: General: Nontoxic-appearing female sitting up in bed. Neck: Supple. Respiratory: Respirations are nonlabored. Lung sounds are diminished throughout and somewhat coarse. Cardiovascular: Regular rate and rhythm with S1-S2. Soft murmur at the upper sternal border. Gastrointestinal: Abdomen is soft, nontender, and nondistended with positive bowel sounds. Gastrostomy tube site is clean, dry, and intact and contains opaque whitish yellow material. Skin: Warm and dry. No rash or lesions on limited exam. Extremities: No cyanosis, clubbing, or edema. Radial pulses palpable. She is wearing waffle boots. Neurological: Alert. Unable to assess for orientation as she nonverbal. Cranial nerves 2-12 are grossly intact. She did move both of her arms to stimuli. Muscles in legs are atrophic. Psychiatric: Unable to assess as she is nonverbal. She is alert and cooperative with exam. Objective Data Vital Signs Vital Signs: Vital Signs - 24 hr 05/16/22 12:00 05/16/22 15:51 05/16/22 16:00 Temperature 97.4 F L Pulse Rate 64 64 62 Respiratory Rate 18 Blood Pressure 146/56 H Pulse Oximetry 100 Oxygen Delivery Oxygen Flow Rate 05/16/22 19:40 05/16/22 20:00 05/16/22 22:47 Temperature 98 F Pulse Rate 66 66 68 Respiratory Rate 18 18 Blood Pressure 144/55 H Pulse Oximetry 100 100 Oxygen Delivery Nasal Cannula Oxygen Flow Rate 2 05/16/22 20:00 05/17/22 00:00 05/17/22 04:01 Temperature 97.6 F Pulse Rate 59 L 66 74 Respiratory Rate 20 Blood Pressure 133/67 Pulse Oximetry 98 Oxygen Delivery Oxygen Flow Rate 05/17/22 04:00 05/17/22 08:36 Temperature Pulse Rate 70 72 Respiratory Rate Blood Pressure Pulse Oximetry Oxygen Delivery Oxygen Flow Rate Doni
[2022-05-17 12:27] LABS: Glucose Point of Care 257 mg/dl (65-105)
--- NOTE | 2022-05-17 15:44 | WPDGICN ---
Assessment and Plan Assessment and plan (1) Acute on chronic anemia: Code(s): D64.9 - Anemia, unspecified Status: Acute Assessment and Plan: recent egd unremarkable (it was done when new G-tube was placed) no report of over gib and h/h near baseline no plan for colonoscopy unless obvious bleeding will follow from afar (2) Acute on chronic renal insufficiency: Code(s): N28.9 - Disorder of kidney and ureter, unspecified; N18.9 - Chronic kidney disease, unspecified Status: Acute Assessment and Plan: monitor (3) Occult blood positive stool: Code(s): R19.5 - Other fecal abnormalities Status: Acute Assessment and Plan: given several comorbidities and current condition with sepsis/bacteremia, I recommend conservative approach unless obvious bleeding (4) Bacteremia: Code(s): R78.81 - Bacteremia Status: Acute Assessment and Plan: Staph + on abx by primary (5) Community acquired pneumonia: Code(s): J18.9 - Pneumonia, unspecified organism Status: Acute (6) Dementia: Code(s): F03.90 - Unspecified dementia, unspecified severity, without behavioral disturbance, psychotic disturbance, mood disturbance, and anxiety Status: Acute GI Consult Note Consult date/time: 05/17/22 15:44 Reason for consult: chronic anemia, FOBT + HPI: Aman Latham is a 72 year old female with history of stroke, dementia unable to get history from her, she is non-verbal, with other multiple medical problems including hypertension, paroxysmal atrial fibrillation on chronic anticoagulation- eliquis, diastolic dysfunction, COPD on 2 liters, and diabetes. I met her last month when she was admitted to the hospital after previous G-tube fell off and also had HTN urgency, I replaced a new one endoscopically. Labs showed hemoglobin of 7.1, hematocrit 24.6%, BUN 91, creatinine 2.40, proBNP 57554. Chest x-ray showed diffuse lung disease with interval worsening consistent with pneumonia and/or pulmonary edema.?Blood cultures + Staph and she is on antibiotics. RN denies any overt gib but occult blood is positive. Review of Systems Review of Systems: ROS unobtainable: Yes unobtainable due to medical condition, unobtainable due to mental status and other (she is non-verbal) [facility] Past Medical History Medical History (Updated 05/17/22 @ 15:50 by Lucio Rodriguez MD) Cerebrovascular accident Chronic anemia Chronic obstructive pulmonary disease Chronic respiratory failure with hypoxia, on home oxygen therapy Dementia Heart failure with preserved ejection fraction Hypertension Occult blood positive stool Paroxysmal atrial fibrillation Type 2 diabetes mellitus Surgical History Surgical History History of gastrostomy tube placement Family History Family History Other Family history unknown Social History Social History Social History: Next of kin: Vikram Latham, son. Legal guardian: Raj Bustos. Code status: Full code. Smoking status: Never smoker Alcohol intake: never Substance use: never Substance use type: does not use Additional living arrangements comments: Resident at [facility]. Spiritual care concerns: No Meds Home Medications and Allergies Home Medications Medication Instructions Recorded Confirmed Type apixaban 5 mg tablet (Eliquis) 5 mg feeding tube BID 04/25/22 05/12/22 History ascorbate calcium (vitamin C) 500 mg feeding tube BID 04/25/22 05/12/22 History benztropine 1 mg tablet 1 mg feeding tube BID 04/25/22 05/12/22 History carbidopa 10 mg-levodopa 100 mg 1 tablet feeding tube Q6H 04/25/22 05/12/22 History tablet carvedilol 6.25 mg tablet 6.25 mg feeding tube BID 04/25/22 05/12/22 History clonidine HCl 0.3 mg ta
[2022-05-17 18:13] LABS: Glucose Point of Care 302 mg/dl (65-105)
--- NOTE | 2022-05-17 18:58 | PC.NURSE ---
Pt HR in the 40' at 1830. Called made to exchange to update Dr Okeefe
--- NOTE | 2022-05-17 19:09 | PC.NURSE ---
Spoke With Dr Mcmahon at 1905 to give update pts condition and that pt reading alexis in 40's on tele but asymptomatic. Dr Mcmahon gave orders to hold cardizem at this time
[2022-05-18] VITALS (9 sets, daily range): BP systolic 141–155; BP diastolic 56–59; PULSE 72–76; RESP 16–20; TEMP 36.3–36.8; O2SAT 100
[2022-05-18 00:40] LABS: Glucose Point of Care 280 mg/dl (65-105)
[2022-05-18] MEDS: INSULIN ASPART (*BKC) 100 UNITS/ML SUB-Q ×3 (00:54→12:46)
[2022-05-18 05:47] LABS: Glucose Point of Care 326 mg/dl (65-105)
[2022-05-18] MEDS: hydrALAZINE HCL 50 MG TABLET 100 MG FEED TUBE ×2 (06:15→14:09)
[2022-05-18] MEDS: CARBIDOPA/LEVODOPA 10/100 MG TABLET 1 TABLET FEED TUBE ×2 (06:15→12:40)
[2022-05-18] MEDS: BENZTROPINE MESYLATE 1 MG TABLET FEED TUBE (08:30)
[2022-05-18] MEDS: ASCORBIC ACID 500 MG TABLET FEED TUBE (08:30)
[2022-05-18] MEDS: FUROSEMIDE 40 MG TABLET FEED TUBE (08:30)
[2022-05-18] MEDS: MULTIVIT W/ IRON, MINERALS 15 ML LIQUID (*BKC) PO (08:31)
[2022-05-18] MEDS: SILVERGEL (ELTA) 45 ML 1 APPLIC TOPICAL (08:32)
[2022-05-18] MEDS: FERROUS SULFATE LIQUID 325 MG/7.4 ML ELIXIR FEED TUBE (08:32)
[2022-05-18] MEDS: carvediloL 6.25 MG TABLET FEED TUBE (10:02)
[2022-05-18] MEDS: cloNIDine HCL 0.1 MG TABLET 0.3 MG FEED TUBE ×2 (10:07→14:11)
--- NOTE | 2022-05-18 11:17 | PCNFU ---
Nutrition Follow-Up Complete: Inadequate energy intake related to NPO status without alternative nutrition support at this time as evidenced by current diet order. goal: Meet estimated needs Patient is meeting current goal. WE will continue current goal. Pt current nutrition is Glucerna 1.2 at 65 ml/hr. Last recorded weight is 88.3 kg. Bowel Motility:+BM reported 05/17 Labs Reviewed:Glu 193, Cr 2.4,BUN 81, Na 147 Meds Noted:Lasix, NovoLog, Lactulose, Senokot. Skin: Stage III PU-saccum Additional Notes: Patient remains on PEG tube feedings of Glucerna 1.2 at 65 ml/hr and tolerating per nursing. Tube feeding providing 1716 kcals/86 gms protein, 1151 ml water. Flush 150 ml q 4 hours. Tube feedings is meeting 100% of kcal and protein needs. Carlo BID for wound healing providing an additional 90 kcals and 2.5 gms protein. Agree with diet orders. Monitor tube feedings, tolerance, wt, labs. Follow up every Tuesday and Tuesday.
--- NOTE | 2022-05-18 11:58 | PM.DS ---
DS: Admitting Diagnosis Discharge Date May 18, 2022 Admitting Diagnosis Pneumonia DS: Discharge Diagnosis Discharge Diagnosis (1) Acute on chronic anemia: Code(s): D64.9 - Anemia, unspecified Status: Acute Assessment and Plan: No active bleeding noted right now. Hemoccult-positive GI consult Monitor hemoglobin transfuse as needed (2) Acute on chronic renal insufficiency: Code(s): N28.9 - Disorder of kidney and ureter, unspecified; N18.9 - Chronic kidney disease, unspecified Status: Acute Assessment and Plan: Patient is currently at baseline kidney function with creatinine around 2. (3) Pulmonary infiltrates: Code(s): R91.8 - Other nonspecific abnormal finding of lung field Status: Acute Assessment and Plan: Continue antibiotics for community-acquired pneumonia (4) Proteinuria: Code(s): R80.9 - Proteinuria, unspecified Status: Acute (5) Hypertension: Code(s): I10 - Essential (primary) hypertension Status: Acute Assessment and Plan: Monitor (6) Heart failure with preserved ejection fraction: Code(s): I50.30 - Unspecified diastolic (congestive) heart failure Status: Acute (7) Chronic respiratory failure with hypoxia, on home oxygen therapy: Code(s): J96.11 - Chronic respiratory failure with hypoxia; Z99.81 - Dependence on supplemental oxygen Status: Acute (8) Chronic obstructive pulmonary disease: Code(s): J44.9 - Chronic obstructive pulmonary disease, unspecified Status: Acute (9) Dementia: Code(s): F03.90 - Unspecified dementia, unspecified severity, without behavioral disturbance, psychotic disturbance, mood disturbance, and anxiety Status: Acute (10) Paroxysmal atrial fibrillation: Code(s): I48.0 - Paroxysmal atrial fibrillation Status: Acute (11) Type 2 diabetes mellitus: Code(s): E11.9 - Type 2 diabetes mellitus without complications Status: Acute (12) Bacteremia: Code(s): R78.81 - Bacteremia Status: Acute Assessment and Plan: After discussion with Infectious Disease pharmacist likely contamination. DS: Summary Hospital Course Hospital Course: Patient is a 72-year-old female came in pneumonia and was treated with antibiotics and did well. Patient is also found have a drop in hemoglobin and GI evaluated patient and did not recommend any intervention. Hemoglobin has been stable after transfusion. Will hold Eliquis for at least another week. Patient is doing okay now can be discharged back to her facility Time Spent with Patient Time attestation: Total time spent providing and/or coordinating discharge services: Exam Narrative: General: Nontoxic-appearing female sitting up in bed. Neck: Supple. Respiratory: Respirations are nonlabored. Lung sounds are diminished throughout and somewhat coarse. Cardiovascular: Regular rate and rhythm with S1-S2. Soft murmur at the upper sternal border. Gastrointestinal: Abdomen is soft, nontender, and nondistended with positive bowel sounds. Gastrostomy tube site is clean, dry, and intact and contains opaque whitish yellow material. Skin: Warm and dry. No rash or lesions on limited exam. Extremities: No cyanosis, clubbing, or edema. Radial pulses palpable. She is wearing waffle boots. Neurological: Alert. Unable to assess for orientation as she nonverbal. Cranial nerves 2-12 are grossly intact. She did move both of her arms to stimuli. Muscles in legs are atrophic. Psychiatric: Unable to assess as she is nonverbal. She is alert and cooperative with exam. DS: Data Data Completed and Pending Labs on day of discharge: Labs from last 24 hours 05/18/22 05/18/22 05/17/22 05:41 00:37 18:05 POC Capillary Glucose 326 H 280 H 302 H 05/17/22 12:21 POC Capillary Glucose 257 H Discharge Plan Discharge Attending physician on discharge: Manoj Mcmahon
[2022-05-18 12:50] LABS: Glucose Point of Care 311 mg/dl (65-105)
[2022-05-18] MEDS: dilTIAZem HCL 30 MG TABLET FEED TUBE (14:08)
[2022-05-18 14:21] LABS: EDCOVIDSCREEN Negative (Negative)
== END 2022-05-18 18:00 | DRG 194 ==
LOC: ANHED 17:17 → ANHIMU 18:37 → ANH3MED 05-14 16:50
PROVIDERS: Physician Assistant; Admitting Provider Student in an Organized Health Care Education/Training Program; Emergency Provider Emergency Medicine; PCP Family Medicine; Visit Provider Chiropractor
DX: J18.9 Pneumonia, unspecified organism (principal); I13.0 Hypertensive heart and chronic kidney disease with heart failure and stage 1 through stage 4 chronic kidney disease, or unspecified chronic kidney disease; I50.30 Unspecified diastolic (congestive) heart failure; J44.0 Chronic obstructive pulmonary disease with (acute) lower respiratory infection; J96.11 Chronic respiratory failure with hypoxia; R19.5 Other fecal abnormalities; D64.9 Anemia, unspecified; E11.22 Type 2 diabetes mellitus with diabetic chronic kidney disease; N18.9 Chronic kidney disease, unspecified; I48.0 Paroxysmal atrial fibrillation; F03.90 Unspecified dementia, unspecified severity, without behavioral disturbance, psychotic disturbance, mood disturbance, and anxiety; R80.9 Proteinuria, unspecified; D63.8 Anemia in other chronic diseases classified elsewhere; R91.8 Other nonspecific abnormal finding of lung field; Z20.822 Contact with and (suspected) exposure to COVID-19; Z99.81 Dependence on supplemental oxygen; Z86.73 Personal history of transient ischemic attack (TIA), and cerebral infarction without residual deficits; Z79.01 Long term (current) use of anticoagulants; Z93.1 Gastrostomy status
CPT/HCPCS: 36415; 36430; 71045; 74176; 80048; 80053; 80202; 81001; 82274; 82565; 82948; 83605; 83735; 83880; 84145; 84484; 85014; 85018; 85025; 85610; 85730; 86140; 86850; 86900; 86901; 86923; 87040; 87045; 87077; 87086; 87147; 87181; 87186; 87426; 87427; 87636; 93005; 93308; 94640; 96365; 96367; 99285; A9270; C9803; J0456; J0696; J1815; J1940; J3370; J7050; P9016